=== PATIENT | female | born 1965 | race Caucasian/White ===

== ENCOUNTER → 2017-09-20 13:52 | Outpatient (CLI) | payer OTHER, SELFPAY ==
[2017-05-14 09:07] VITALS: BMI 30.7
--- NOTE | 2017-09-20 13:54 | ECHOD_ITS ---
Reason For Study: breast cancer Procedure This was a 2D Doppler, Color Flow transthoracic echocardiogram. Exam performed in department. Left Ventricle Normal LV size. Left ventricular systolic function is normal. The estimated ejection fraction is 60 %. Transmitral and pulmonary venous doppler flow suggestive of impaired relaxation of left ventricle. Transmitral diastolic flow velocities suggest mild (stage 1) diastolic dysfunction (reversed pattern). No regional wall motion abnormalities noted. Right Ventricle Normal RV size. Normal systolic function. Atria Normal left atrium. Normal right atrium. Mitral Valve Normal mitral valve. Tricuspid Valve Normal tricuspid valve. Aortic Valve The aortic valve is not well visualized. Pulmonic Valve Normal pulmonic valve. Great Vessels Normal aortic root. The pulmonary artery is normal size. Normal inferior vena cava. Pericardium/Pleural No pericardial effusion. MMode/2D Measurements & Calculations LVIDd: 4.7 cm IVSd: 0.91 cm Ao root diam: 2.9 cm LVIDs: 3.3 cm LVPWd: 0.83 cm LA dimension: 3.7 cm RVDd: 3.0 cm FS: 29.0 % LAV(MOD-bp): 39.3 ml LA A4 area: 15.0 cm2 RA A4 area: 11.1 cm2 LAV(MOD-bp) Indexed: 19.9 ml/m2 LAV(MOD-sp2): 40.9 ml LAV(MOD-sp4): 40.7 ml Time Measurements MV dec time: 0.18 sec Doppler Measurements & Calculations MV E max victor manuel: 75.3 cm/sec Lat Peak E' Victor Manuel: 5.9 cm/sec Med Peak E' Victor Manuel: 9.1 cm/sec MV A max victor manuel: 87.3 cm/sec E/E' lat: 12.9 E/E' med: 8.3 MV E/A: 0.86 Ao V2 max: 118.3 cm/sec LV V1 max: 93.6 cm/sec PA V2 max: 83.3 cm/sec Ao max P.6 mmHg LV V1 max P.5 mmHg TR max victor manuel: 219.8 cm/sec TR max P.5 mmHg Interpretation Summary Normal LV size. Left ventricular systolic function is normal. The estimated ejection fraction is 60 %. Transmitral diastolic flow velocities suggest mild (stage 1) diastolic dysfunction (reversed pattern). Ordering Physician: Jerman Tam Referring Physician: Gabrielle Nguyen Performed By: Stella Blackwood, ROBERT, RVT
== END ==
PROVIDERS: Family Provider Family Medicine; PCP Family Medicine; Visit Provider Internal Medicine Medical Oncology
DX: C50.912 Malignant neoplasm of unspecified site of left female breast (principal); Z79.899 Other long term (current) drug therapy
CPT/HCPCS: 93306

== ENCOUNTER → 2017-09-26 11:38 | Outpatient (CLI) | payer OTHER, SELFPAY ==
[2017-05-14 09:07] VITALS: BMI 30.7
== END ==
PROVIDERS: Family Provider Family Medicine; PCP Family Medicine; Visit Provider Obstetrics & Gynecology
DX: R30.0 Dysuria (principal); R35.0 Frequency of micturition
CPT/HCPCS: 87077; 87086; 87088; 87186

== ENCOUNTER → 2017-10-25 07:26 | Outpatient (CLI) | payer OTHER, SELFPAY ==
[2017-05-14 09:07] VITALS: BMI 30.7
--- NOTE | 2017-10-25 07:30 | BI_ITS ---
MAMMOGRAPHY - BILATERAL SCREENING 3-D DOMI SYNTHESIS REASON FOR EXAM: Female, 52 years old. Bilateral Screening 3-D tomosynthesis PERTINENT HISTORY: Personal history of left breast malignancy.. TECHNIQUE: 2-D mammograms and 3-D Domi synthesis of the breast (s) were performed. CAD was performed. COMPARISON: October 12, 2016. FINDINGS: The breast composition is heterogeneously dense that can obscure small breast masses. There is asymmetry with architectural distortion in the region of multiple surgical clips within the mid to deep upper lateral left breast. There is mild overlying skin thickening and retraction. The patient also appears status post left axillary reyna dissection. These findings all appear most consistent with postoperative and postsurgical fibrosis/scarring. There are few, scattered, typically benign-appearing calcifications. There has been no significant change since the prior study. BI/SCREENING MAMM (CAD), BILAT IMPRESSION: No mammographic signs of malignancy. Routine yearly mammograms recommended. ASSESSMENT CATEGORY: BIRADS Category 2: Benign. A letter regarding these results will be sent to the patient by the facility within 30 days. FOLLOW UP RECOMMENDATION: Yearly follow up mammogram recommended. (A) Approximately 10% of breast cancers are not detected by mammography. A normal mammogram should not delay biopsy of a clinically suspicious abnormality. Electronically Signed: Darvin Low MD at 10:17 EDT , Service support ,
== END ==
PROVIDERS: Family Provider Family Medicine; PCP Family Medicine; Visit Provider Obstetrics & Gynecology
DX: Z12.31 Encounter for screening mammogram for malignant neoplasm of breast (principal); D48.62 Neoplasm of uncertain behavior of left breast; Z85.3 Personal history of malignant neoplasm of breast
CPT/HCPCS: 77063; 77067

== ENCOUNTER → 2017-12-03 09:54 | Outpatient (CLI) | payer OTHER, SELFPAY ==
[2017-05-14 09:07] VITALS: BMI 30.7
--- NOTE | 2017-12-03 09:54 | DT_ITS ---
This patient was seen during an EMR downtime December 03, 2017 - December 10, 2017. This patient may have a combination of paper and electronic documentation or all paper documentation. All documentation is viewable within the e-chart portion of [employer] for each patient visit.
== END ==
PROVIDERS: Family Provider Family Medicine; PCP Family Medicine; Visit Provider Internal Medicine Medical Oncology
DX: C50.912 Malignant neoplasm of unspecified site of left female breast (principal); Z79.899 Other long term (current) drug therapy
CPT/HCPCS: 93306

== ENCOUNTER → 2018-03-28 13:00 | Outpatient (CLI) | payer OTHER, SELFPAY ==
[2017-05-14 09:07] VITALS: BMI 30.7
--- NOTE | 2018-03-28 13:05 | ECHODONC_ITS ---
Reason For Study: High risk meds Procedure This was a 2D Doppler, Color Flow transthoracic echocardiogram. Myocardial strain analysis was performed in this exam to aid in the assessment of cardiac function. Exam performed in department. Left Ventricle Normal LV size. Left ventricular systolic function is normal. The estimated ejection fraction is 60 %. Transmitral diastolic flow velocities suggest mild (stage 1) diastolic dysfunction (reversed pattern). The global longitudinal strain is normal. The global longitudinal strain = -18 % (normal). No regional wall motion abnormalities noted. Right Ventricle Normal RV size. Normal systolic function. Atria Normal left atrium. Normal right atrium. Mitral Valve Normal mitral valve. Tricuspid Valve Normal tricuspid valve. Aortic Valve Normal aortic valve. Trisinus/trileaflet aortic valve. Pulmonic Valve Normal pulmonic valve. Great Vessels Normal aortic root. The pulmonary artery is normal size. Normal inferior vena cava. Pericardium/Pleural No pericardial effusion. MMode/2D Measurements & Calculations LVIDd: 4.9 cm IVSd: 0.80 cm Ao root diam: 3.3 cm LVIDs: 3.3 cm LVPWd: 0.79 cm LA dimension: 3.3 cm RVDd: 3.0 cm FS: 33.5 % LAV(MOD-bp): 45.0 ml EDV(MOD-sp4): 104.7 ml EDV(MOD-sp2): 104.1 ml LAV(MOD-bp) Indexed: 22.8 ml/m2 ESV(MOD-sp4): 42.0 ml EF(MOD-sp2): 58.1 % LAV(MOD-sp2): 35.0 ml EF(MOD-sp4): 59.9 % LAV(MOD-sp4): 57.4 ml SV(MOD-sp4): 62.7 ml SV(MOD-sp2): 60.5 ml LA A4 area: 19.0 cm2 RA A4 area: 12.1 cm2 Doppler Measurements & Calculations MV E max victor manuel: 57.5 cm/sec Lat Peak E' Victor Manuel: 6.6 cm/sec Med Peak E' Victor Manuel: 6.4 cm/sec MV A max victor manuel: 93.3 cm/sec E/E' lat: 8.7 E/E' med: 9.0 MV E/A: 0.62 Ao V2 max: 133.2 cm/sec LV V1 max: 104.7 cm/sec PA V2 max: 88.7 cm/sec Ao max P.1 mmHg LV V1 max P.4 mmHg Interpretation Summary Normal LV size. Left ventricular systolic function is normal. Transmitral diastolic flow velocities suggest mild (stage 1) diastolic dysfunction (reversed pattern). The global longitudinal strain is normal. The global longitudinal strain = -18 % (normal). The estimated ejection fraction is 60 %. Ordering Physician: Yana Braxton Referring Physician: Gabrielle Nguyen Performed By: Yadira Garcia RDCS
== END ==
PROVIDERS: Family Provider Family Medicine; PCP Family Medicine; Referring Provider Nurse Practitioner Family; Visit Provider Nurse Practitioner Family
DX: Z79.899 Other long term (current) drug therapy (principal)
CPT/HCPCS: 0399T; 93306

== ENCOUNTER → 2018-04-18 07:45 | Outpatient (CLI) | payer OTHER, SELFPAY ==
[2017-05-14 09:07] VITALS: BMI 30.7
--- NOTE | 2018-04-18 07:47 | CT_ITS ---
STUDY: CT ABDOMEN AND PELVIS WITH CONTRAST REASON FOR EXAM: Female, 53 years old. Left lower quadrant pain x 2 weeks. History of breast cancer treated with lumpectomy, radiation, and chemotherapy. RADIATION DOSAGE (If Supplied By Facility): CTDIvol = ( 15.51 ) mGy, DLP = ( 1618.64 ) mGycm TECHNIQUE: Transaxial images were obtained from the dome of the diaphragm to the symphysis pubis with oral contrast. 100 ml of Isovue 300 contrast was administered. Sagittal and coronal images were reconstructed. # of Images: 409 Individualized dose optimization techniques were used for this CT. COMPARISON: None. FINDINGS: The visualized lung bases are unremarkable. The visualized portions of the heart are within normal limits. Normal liver. The patent portal vein diameter is 13 mm. There are multiple rim calcified gallstones, one of the largest measuring 2 x 1.4 x 1.75 cm. No mural thickening of the gallbladder nor pericholecystic fluid to indicate cholecystitis. The common bile duct diameter is 5 mm. Normal spleen. Normal pancreas. Normal bilateral adrenal glands. Normal right kidney. Normal left kidney. No hydronephrosis. Normal visualized stomach. Normal small intestine. Normal colon. The appendix is visualized on series 3 image 67, series 604 image 43 and appears normal. Normal abdominal aorta. Normal inferior vena cava. Normal retroperitoneum. Normal urinary bladder. Normal size anteverted uterus. Endometrial thickness is 10.5 mm. The patient has undergone prior bilateral tubal ligations. The ovaries are unremarkable. There is a small umbilical hernia containing fat. There are multilevel degenerative changes and mild S-shaped scoliosis of the visualized spine. CT/Abdomen/Pelvis WITH Contrast IMPRESSION: 1. Prior bilateral tubal ligation. Endometrial thickness is 10.5 mm. The uterus and ovaries are otherwise unremarkable. 2. The bowel is unremarkable without signs of obstruction. The appendix is normal. 3. Gallstones. No sign of cholecystitis or bile duct obstruction. 4. No hydronephrosis. 5. No demonstrated abdominal/pelvic mass or fluid collection. Electronically Signed: Guzman Reveles MD at 14:25 EDT , Service support ,
--- NOTE | 2018-04-18 07:47 | CT_ITS ---
STUDY: CT CHEST/THORAX WITH CONTRAST REASON FOR EXAM: Female, 53 years old. Left lower quadrant pain x 2 weeks. History of breast cancer treated with lumpectomy, radiation, and chemotherapy. RADIATION DOSAGE (If Supplied By Facility): CTDIvol = ( 15.51 ) mGy, DLP = ( 1618.64 ) mGycm TECHNIQUE: Transaxial imaging was performed following intravenous administration of 100 ml of Isovue 300 contrast material. Multiplanar coronal and sagittal images were reformatted. # of Images: 835 Individualized dose optimization techniques were used for this CT. COMPARISON: None. FINDINGS: Subsegmental stranding in the anterior periphery of the left upper lobe suggest chronic disease, such as post radiation fibrosis. Mildly lobulated 8 mm diameter pleural-based nodular density in the posterior medial right superior sulcus (series 6 image 15, series 601 image 170) is difficult to further characterize. There is no demonstrated pleural abnormality. Normal heart and pericardium. Normal mediastinum. Normal hilar regions. Normal enhanced pulmonary arteries. Normal aorta arch and descending thoracic aorta. There are multi-level degenerative changes of the thoracic spine. Postsurgical changes noted in the left breast. There are numerous surgical clips in the left axilla. There are rim calcified stones in the gallbladder. No mural thickening of the gallbladder nor pericholecystic fluid to suggest acute cholecystitis. CT/Chest WITH Contrast IMPRESSION: 1. Postsurgical changes in the left breast and left axilla. 2. Subsegmental stranding density of probable post radiation fibrotic change noted in the anterior periphery of the left upper lobe. 3. Indeterminate 8 mm pleural-based nodule in the posterior medial right superior sulcus. Follow-up in 3-6 months is advised to document stability. 4. Gallstones. No CT sign of acute cholecystitis. Electronically Signed: Guzman Reveles MD at 14:49 EDT , Service support ,
== END ==
PROVIDERS: Family Provider Family Medicine; PCP Family Medicine; Referring Provider Internal Medicine Medical Oncology; Visit Provider Internal Medicine Medical Oncology
DX: C50.812 Malignant neoplasm of overlapping sites of left female breast (principal); R10.32 Left lower quadrant pain
CPT/HCPCS: 71260; 74177; Q9967

== ENCOUNTER 2018-05-29 08:31 | Day surgery (SDC) | payer OTHER, SELFPAY ==
[2017-05-14 09:07] VITALS: BMI 30.7
[2018-05-29 08:52] VITALS: BP 126/93; PULSE 81; RESP 18; TEMP 36.9; O2SAT 99; BMI 30.7
[2018-05-29 10:06] VITALS: BP 126/93; BP 98/46; PULSE 73; RESP 14; TEMP 36.1; O2SAT 99
[2018-05-29 10:10] VITALS: BP 104/69; BP 126/93; PULSE 72; RESP 16; O2SAT 99
--- NOTE | 2018-05-29 10:11 | OP.ENDO_ITS ---
Patient Name: Lilian Ramos Procedure Date: 05/29/2018 9:38 AM Date of : 1965 Age: 53 Procedure: Colonoscopy Indications: Screening for colorectal malignant neoplasm Providers: Carissa Omalley MD Referring MD: Carissa Omalley MD Medicines: Monitored Anesthesia Care Patient Profile: This is a 53 year old female. Last Colonoscopy: none. The patient's first colonoscopy is today. Complications: No immediate complications. Procedure: Pre-Anesthesia Assessment: - Prior to the procedure, a History and Physical was performed, and patient medications and allergies were reviewed. The patient's tolerance of previous anesthesia was also reviewed. The risks and benefits of the procedure and the sedation options and risks were discussed with the patient. All questions were answered, and informed consent was obtained. Prior Anticoagulants: The patient has taken no previous anticoagulant or antiplatelet agents. ASA Grade Assessment: II - A patient with mild systemic disease. After reviewing the risks and benefits, the patient was deemed in satisfactory condition to undergo the procedure. After I obtained informed consent, the scope was passed under direct vision. Throughout the procedure, the patient's blood pressure, pulse, and oxygen saturations were monitored continuously. The pediatric colonoscope was introduced through the anus and advanced to the cecum, identified by the appendiceal orifice, ileocecal valve and palpation. The colonoscopy was performed without difficulty. The patient tolerated the procedure well. The quality of the bowel preparation was good. Scope In: 9:47:13 AM Scope Withdrawal Time 0 hours 7 minutes 13 seconds Scope Out: 10:02:14 AM Total Procedure Duration Time 0 hours 15 minutes 1 second Findings: Hemorrhoids were found on perianal exam. External and internal hemorrhoids were found during retroflexion and during perianal exam. The hemorrhoids were Grade I (internal hemorrhoids that do not prolapse). The entire examined colon appeared normal. Impression: - Hemorrhoids found on perianal exam. - External and internal hemorrhoids. - The entire examined colon is normal. - No specimens collected. Recommendation: - Discharge patient to home. - Continue present medications. - Repeat colonoscopy in 10 years for surveillance. Procedure Code(s): --- Professional --- G0121, Colorectal cancer screening; colonoscopy on individual not meeting criteria for high risk Diagnosis Code(s): --- Professional --- Z12.11, Encounter for screening for malignant neoplasm of colon K64.0, First degree hemorrhoids CPT copyright 2017 [employer]. All rights reserved. The codes documented in this report are preliminary and upon fund accountant review may be revised to meet current compliance requirements. MD Carissa Chandler MD 05/29/2018 10:10:47 AM This report has been signed electronically. Number of Addenda: 0 Note Initiated On: 05/29/2018 9:38 AM
[2018-05-29 10:15] VITALS: BP 111/65; BP 126/93; PULSE 69; RESP 16; O2SAT 99
[2018-05-29 10:24] VITALS: BP 111/65; BP 126/93; PULSE 65; RESP 16; TEMP 36.6; O2SAT 100
[2018-05-29 11:30] VITALS: BP 126/93
--- OUTSIDE RECORDS SUMMARY | 2018-07-24 13:50 | XMS RPT_ITS ---
:1965 Author Organization OHIP Support Name Relationship Address Phone REGINALDO QUACH Unavailable [address] + [place] [address] FELIPE MORENO Unavailable [address] + [place] [address] [employer] Unavailable [address] + [place] [address] REGINALDO QUACH Unavailable [address] + [place] [address] FELIPE MORENO Unavailable [address] + [place] [address] [employer] Unavailable [address] + [place] [address] REGINALDO QUACH Unavailable [address] + [place] [address] FELIPE MORENO Unavailable [address] + [place] [address] [employer] Unavailable [address] + [place] [address] REGINALDO QUACH Unavailable [address] + [place] [address] FELIPE MORENO Unavailable [address] + [place] [address] [employer] Unavailable [address] + [place] [address] REGINALDO QUACH Unavailable [address] + [place] [address] FELIPE MORENO Unavailable [address] + [place] [address] [employer] Unavailable [address] + [place] [address] PHILOMENA, REGINALDO Unavailable [address] + [place] [address] MORENO, FELIPE Unavailable [address] + [place] [address] [employer] Unavailable [address] + [place] [address] PHILOMENA, REGINALDO Unavailable [address] + [place] [address] MORENO, FELIPE Unavailable [address] + [place] [address] [employer] Unavailable [address] + [place] [address] PHILOMENA, REGINALDO Unavailable [address] + [place] [address] MORENO, FELIPE Unavailable [address] + [place] [address] [employer] Unavailable [address] + [place] [address] PHILOMENA, REGINALDO Unavailable [address] + [place] [address] MORENO, FELIPE Unavailable [address] + [place] [address] [employer] Unavailable [address] + [place] [address] PHILOMENA, REGINALDO Unavailable [address] + [place] [address] MORENO, FELIPE Unavailable [address] + [place] [address] [employer] Unavailable [address] + [place] [address] PHILOMENA, REGINALDO Unavailable [address] + [place] [address] MORENO, FELIPE Unavailable . + [place] [address] [employer] Unavailable [address] + [place] [address] PHILOMENA, REGINALDO Unavailable [address] + [place] [address] MORENO, FELIPE Unavailable . + [place] [address] [employer] Unavailable [address] + [place] [address] PHILOMENA, REGINALDO Unavailable [address] + [place] [address] MORENO, FELIPE Unavailable Unavailable + [employer] Unavailable [address] + [place] [address] PHILOMENA, REGINALDO Unavailable [address] + [place] [address] MORENO, FELIPE Unavailable Unavailable + [employer] Unavailable [address] + [place] [address] PHILOMENA, REGINALDO Unavailable [address] + [place] [address] MORENO, FELIPE Unavailable Unavailable + [employer] Unavailable [address] + [place] [address] PHILOMENA, REGINALDO Unavailable [address] + [place] [address] MORENO, FELIPE Unavailable Unavailable + [employer] Unavailable [address] + [place] [address] PHILOMENA, REGINALDO Unavailable [address] + [place] [address] MORENO, FELIPE Unavailable Unavailable + [employer] Unavailable [address] + [place] [address] PHILOMENA, REGINALDO Unavailable [address] + [place] [address] MORENO, FELIPE Unavailable Unavailable + [employer] Unavailable [address] + [place] [address] PHILOMENA, REGINALDO Unavailable [address] + [place] [address] MORENO, FELIPE Unavailable Unavailable + [place] [address] [employer] Unavailable [address] + [place] [address] PHILOMENA, REGINALDO Unavailable [address] + [place] [address] MORENO, FELIPE Unavailable Unavailable + [place] [address] [employer] Unavailable [address] + [place] [address] PHILOMENA, REGINALDO Unavailable [address] + [place] [address] MORENO, FELIPE Unavailable Unavailable + [place] [address] [employer] Unavailable [address] + [place] [address] PHILOMENA, REGINALDO Unavailable [address] + [place] [address] MORENO, FELIPE Unavailable Unavailable + [place] [address] [employer] Unavailable [address] + [place] [address] PHILOMENA, REGINALDO Unavailable [address] + [place] [address] MORENO, FELIPE Unavailable Unavailable + [place] [address] [employer] Unavailable [address] + [place] [address] PHILOMENA, REGINALDO Unavailable [address] + [place] [address] MORENO, FELIPE Unavailable Unavailable + [place] [address] [employer] Unavailable [address] + [place] [address] PHILOMENA, REGINALDO Unavailable [address] + [place] [address] MORENO, FELIPE Unavailable Unavailable + [place] [address] [employer] Unavailable [address] + [place] [address] PHILOMENA, REGINALDO Unavailable [address] + [place] [address] MORENO, FELIPE Unavailable Unavailable + [place] [address] [employer] Unavailable [address] + [place] [address] PHILOMENA, REGINALDO Unavailable [address] + [place] [address] MORENO, FELIPE Unavailable . + [place] [address] [employer] Unavailable [address] + [place] [address] PHILOMENA, REGINALDO Unavailable [address] + [place] [address] MORENO, FELIPE Unavailable . + [place] [address] [employer] Unavailable [address] + [place] [address] PHILOMENA, REGINALDO Unavailable [address] + [place] [address] MORENO, FELIPE Unavailable . + [place] [address] [employer] Unavailable [address] + [place] [address] PHILOMENA, REGINALDO Unavailable [address] + [place] [address] MORENO, FELIPE Unavailable . + [place] [address] [employer] Unavailable [address] + [place] [address] PHILOMENA, REGINALDO Unavailable [address] + [place] [address] [employer] Unavailable [address] + [place] [address] PHILOMENA, REGINALDO Unavailable [address] + [place] [address] MORENO, FELIPE Unavailable Unavailable + [employer] Unavailable [address] + [place] [address] PHILOMENA, REGINALDO Unavailable [address] + [place] [address] [employer] Unavailable [address] + [place] [address] PHILOMENA, REGINALDO Unavailable [address] + [place] [address] MORENO, FELIPE Unavailable Unavailable + [employer] Unavailable [address] + [place] [address] Care Team Providers Name Role Phone Carissa Omalley Attending Unavailable Jerman Tam Attending Unavailable Robotham, Carissa Referring Unavailable Malys, Gabrielle Primary Care Unavailable Herson Billings Attending Unavailable Irais, Yana Attending Unavailable Robotham, Carissa Attending Unavailable Malys, Gabrielle Referring Unavailable Malys, Gabrielle Primary Care Unavailable Prah, Jerman Attending Unavailable Robotham, Carissa Referring Unavailable Malys, Gabrielle Primary Care Unavailable PraJerman arboleda Consulting Unavailable Herson Billings Attending Unavailable Malys, Gabrielle Primary Care Unavailable Herson Billings Consulting Unavailable Prah, Jerman Attending Unavailable Robotham, Carissa Referring Unavailable Malys, Gabrielle Primary Care Unavailable Prah, Jerman Consulting Unavailable Prah, Jerman Attending Unavailable [place], Carissa Referring Unavailable Malys, Gabrielle Primary Care Unavailable Prankechi, Jerman Consulting Unavailable Prah, Jerman Attending Unavailable Prah, Jerman Referring Unavailable Malys, Gabrielle Primary Care Unavailable Prankechi, Jerman Attending Unavailable Robotham, Carissa Referring Unavailable Malys, Gabrielle Primary Care Unavailable Prankechi, Jerman Consulting Unavailable Giovanna Worley Attending Unavailable Malys, Gabrielle Primary Care Unavailable Prankechi, Jerman Attending Unavailable Robotham, Carissa Referring Unavailable Malys, Gabrielle Primary Care Unavailable Prankechi, Jerman Consulting Unavailable Juan Rios Attending Unavailable Prah, Jerman Referring Unavailable BenekoGiovanna anthony Attending Unavailable Benekos, Giovanna Referring Unavailable Malys, Gabrielle Primary Care Unavailable Herson Billings Attending Unavailable Robotham, Carissa Referring Unavailable Malys, Gabrielle Primary Care Unavailable Prankechi, Jerman Consulting Unavailable Prankechi, Jerman Attending Unavailable Robotham, Carissa Referring Unavailable Malys, Gabrielle Primary Care Unavailable Prankechi, Jerman Consulting Unavailable Prankechi, Jerman Attending Unavailable Robotham, Carissa Referring Unavailable Malys, Gabrielle Primary Care Unavailable PraJerman arboleda Consulting Unavailable Herson Billings Attending Unavailable Manuelito, Herson Referring Unavailable Herson Billings Attending Unavailable Manuelito, Herson Referring Unavailable Prankechi, Jerman Attending Unavailable Prah, Jerman Referring Unavailable Malys, Gabrielle Primary Care Unavailable Prankechi, Jerman Attending Unavailable Robotham, Carissa Referring Unavailable Malys, Gabrielle Primary Care Unavailable Prankechi, Jerman Consulting Unavailable Prankechi, Jerman Attending Unavailable Robotham, Carissa Referring Unavailable Malys, Gabrielle Primary Care Unavailable Prankechi, Jerman Consulting Unavailable Raghav Price Attending Unavailable Robotham, Carissa Attending Unavailable Prah, Jerman Referring Unavailable Malys, Gabrielle Primary Care Unavailable Irais, Yana Attending Unavailable Robotham, Carissa Referring Unavailable Malys, Gabrielle Primary Care Unavailable Prah, Jerman Consulting Unavailable Irais, Yana Referring Unavailable Malys, Gabrielle Primary Care Unavailable Prah, Jerman Consulting Unavailable Irais, Yana Attending Unavailable Prah, Jerman Attending Unavailable Robotham, Carissa Referring Unavailable Malys, Gabrielle Primary Care Unavailable Prah, Jerman Consulting Unavailable Prah, Jerman Attending Unavailable Prah, Jerman Referring Unavailable Malys, Gabrielle Primary Care Unavailable Prah, Jerman Attending Unavailable Robotham, Carissa Referring Unavailable Malys, Gabrielle Primary Care Unavailable Prah, Jerman Consulting Unavailable Gabriel, Juan Attending Unavailable Irais, Yana Referring Unavailable Robotham, Carissa Attending Unavailable Prah, Jerman Referring Unavailable Robotham, Carissa Attending Unavailable Robotham, Carissa Referring Unavailable Malys, Gabrielle Primary Care Unavailable Herson Billings Attending Unavailable Robotham, Carissa Referring Unavailable Malys, Gabrielle Primary Care Unavailable Prah, Jerman Consulting Unavailable PROBLEMS PROBLEMS DATE TYPE CONDITION / CODE ATTENDING STATUS SOURCE 06/03/2018 Unknown C50.912 - Herson Billings Active [place] [facility] unspecified site Repository of left female breast / C50.912(ICD-10) 06/17/2018 Unknown Z12.11 - Robotham, Active [place] Encounter for [facility] screening for Hospital malignant Repository neoplasm of colon / Z12.11(ICD-10) 06/17/2018 Unknown K64.0 - First Robotham, Active [place] degree [facility] hemorrhoids / Hospital K64.0(ICD-10) Repository 05/02/2018 Unknown Z79.899 - Other Gabriel, [place] Active [place] [facility] therapy / Repository Z79.899(ICD-10) 02/13/2018 Unknown Z51.81 - Irais, Yana Active [place] [facility] for [facility] therapeutic drug Hospital level monitoring Repository / Z51.81(ICD-10) 12/18/2017 Unknown C50.412 - Jerman Tam Active [place] [facility] neoplasm of [facility] upper-outer Repository quadrant of left female breast / C50.412(ICD-10) 07/30/2017 Unknown N63 - Unspecified Jerman Tam Active [place] lump in breast / Community N63(ICD-10) Hospital Repository PROCEDURES PROCEDURES No Procedure Records FoundRESULTS RESULTS ONCOLOGY FOLLOW-UP Observed: 05/30/2018 Status: F Source: [facility] 9:40 AM REPOSITORY [facility] Medical Records Department [address] [place] [address] Oncology Follow-Up Visit 05/30/18927 MR#: [id number] Acct: [id number] Name: LILIAN QUACH Rep #: [id number] : 1965 53 From: Herson Billings DO PCP: Gabrielle Nguyen DO Status: REG RCR Y Location: [facility] Date of Service: 05/30/18 Last Clinic Visit: 10/30/17 Diagnosis: Lilian Quach is a 52-year-old postmenopausal female diagnosed with pathologic stage IIA (pT1c N1a (sn) M0) grade 2 invasive ductal carcinoma (ER > 95%, AK 6%, HER-2 2+ on IHC and amplified on FISH) of the left breast status post lumpectomy and sentinel lymph node biopsy completed on 12/20/2016, and adjuvant chemotherapy consisting of TCH 6 cycles completed from 01/15/2017 - 05/01/2017. From 05/29/17 - 06/28/17 she received adjuvant radiation therapy consisting of 4256 cGy in 16 fractions directed to the left breast and low axilla followed by a boost consisting of 1000 cGy in 5 fractions directed to the lumpectomy cavity. History of Present Illness: 10/12/2016: Bilateral screening mammography was completed and showed evidence of a 1.3 x 1.4 cm irregular nodule in the deep upper lateral portion of the left breast. Recommended ultrasound for further evaluation, BI-RADS 0. 10/18/2016: Left breast ultrasound was performed and confirmed the existence of a 1.4 x 0.9 cm lesion in the outer inferior quadrant of the left breast at the 3 o'clock position about 7 cm from the nipple. BI-RADS 4. 11/15/2016: Ultrasound-guided core biopsy of the left breast mass was performed. Pathology demonstrated grade 2 invasive ductal carcinoma (ER > 95%, AK 6%, HER-2 2+ on IHC and amplified on FISH) which measured 1 cm in greatest diameter. 12/20/2016: The patient underwent left breast lumpectomy and sentinel lymph node biopsy and pathology demonstrated a single focus of grade 2 invasive ductal carcinoma measuring 1.5 cm, margins negative (initial margin is less than 0.1 cm posteriorly but upon re-resection this is greater than 1 cm), no lymphovascular space invasion, 1 of one sentinel lymph node biopsy is positive with 2 foci of metastatic disease the largest being 0.5 cm and no extranodal extension is identified, pathologic stage pT1c N1a. From 01/15/2017 to 05/01/2017: Completed adjuvant chemotherapy consisting of Taxotere and carboplatin 6 cycles given concurrently with Herceptin. From 05/29/17 06/28/17: received adjuvant radiation therapy consisting of 4256 cGy in 16 fractions directed to the left breast and low axilla followed by a boost consisting of 1000 cGy in 5 fractions directed to the lumpectomy cavity. 07/03/17: initiated Tamoxifen 07/23/17: Received Herceptin, final Herceptin planned for December 2017 10/25/2017: Bilateral screening mammogram with 3D tomosynthesis was performed. The breast composition is heterogeneously dense which could obscure small breast masses, there is asymmetry with architectural distortion in the region of multiple surgical clips within the mid to deep upper lateral left breast with mild overlying skin thickening and retraction, the patient also appears to be status post left axillary reyna dissection and these findings are consistent with postoperative and postsurgical fibrosis/scarring. There are few scattered typical benign-appearing calcifications and no other significant changes since the prior study. BI-RADS Category 2. 12/18/2017: Patient completed maintenance Herceptin. 04/18/2018: Patient underwent CT chest abdomen and pelvis which demonstrated evidence for postsurgical changes in the left breast and left axilla. Subsegmental stranding density of probable post radiation fibrotic changes noted in the anterior periphery of the left lung. An indeterminate 8 mm pleural-based nodule is noted in the posterior medial right superior sulcus. Endometrial thickness is noted to be 10.5 mm otherwise the uterus and ovaries are unremarkable. Bowel is unremarkable without signs of obstruction. Multiple calcified gallstones are noted with the largest measuring 2 cm, no indication of cholecystitis. No other abnormality is noted. Recommend 6-month follow-up for small nodule seen on CT chest. 05/08/2018: Patient was evaluated by surgery for follow-up of left lower quadrant pain and finding of gallstones on CT scan. Left lower quadrant pain had resolved and thought to be resulting from constipation. Patient had not ever had colonoscopy for screening prior to this time so this was scheduled. 05/29/18: Colonoscopy was performed which demonstrated no evidence for abnormality other than hemorrhoids, repeat exam in 10 years. Radiation Treatment History: 1) From 05/29/17 06/28/17: received adjuvant radiation therapy consisting of 4256 cGy in 16 fractions directed to the left breast and low axilla followed by a boost consisting of 1000 cGy in 5 fractions directed to the lumpectomy cavity. No pacemaker, no history of collagen vascular disease. Interval History: Lilian Quach returns for routine follow-up 11 months after completing radiation therapy. She completed Herceptin in November and is continuing to take tamoxifen without difficulty. She denies having skin erythema, breast pain, nipple discharge or inversion, alterations in breast size or shape, or breast/arm edema. She denies having chest wall pain, cough, shortness of breath, hemoptysis. She reports a normal arm range of motion without shoulder pain and denies having swelling in her arm or changes in motor or sensory function. The previously noted abdominal discomfort has completely resolved. Her energy is normal and she is working full-time without problems. She denies headaches, vision changes, bone pain, unexpected weight loss, or other problems or concerns at this time. I have reviewed the medical, surgical, and other pertinent history in details and have updated medication and allergy information in the electronic medical record. Health Maintenance Do you regularly see your No primary care physician? Have you ever had a No colonoscopy? Review of Systems: A 12-point review of systems was completed and was negative except for what is noted in the HPI/Interval History and by the nurse. Height/Weight/BMI: Height: 5 ft 7 in Weight: 193.2 lbs (end of treatment weight 192.4 lbs) Vital Signs Temperature 98.9 F 05/30/18 09:05 Temperature Source Oral 05/30/18 09:05 Pulse Rate 76 05/30/18 09:05 Respiratory Rate 16 05/30/18 09:05 Respiratory Pattern Normal 11/06/17 09:56 Physical Exam: ECO KARNOFSKY SCORE: 100% CONSTITUTIONAL: Well-developed, well-nourished, and in no apparent distress. NECK: Supple,with no thyromegaly, and non-tender. Trachea midline. No cervical or supraclavicular adenopathy noted. CARDIAC: Regular rate and rhythm. Normal S1, S2. No murmurs, rubs, or gallops. PULMONARY/CHEST: Lungs are clear to auscultation and percussion bilaterally. No wheezes, rhonchi, or crackles noted. No increased work of breathing. ABDOMINAL: Abdomen soft, non-tender, non-distended. No hepatomegaly. Normoactive bowel sounds in all four quadrants. No guarding, rebound. BREAST: Bilateral breasts are examined in the seated and supine positions. There is mild asymmetry with some decreased size of the left breast as compared to the right. There is a well-healed lumpectomy scar apparent in the outer portion of the left breast around 3 o'clock position with a very small amount of fibrous tissue beneath, non-tender to palpation. There is no evidence for hyperpigmentation, desquamation, rash, or erythema. There are no palpable masses in either breast or axilla and there is normal arm range of motion. BACK: Straight and aligned. No CVA tenderness. Axial skeleton non-tender to percussion. EXTREMITIES: Full range of motion in all four extremities, with normal strength equally and symmetrically. No evidence of edema. No clubbing. Imaging: as per HPI Laboratory Data: 04/10/2018: CBC and CMP were unremarkable. Assessment: Lilian Quach is a 52-year-old postmenopausal female diagnosed with pathologic stage IIA (pT1c N1a (sn) M0) grade 2 invasive ductal carcinoma (ER > 95%, AK 6%, HER-2 2+ on IHC and amplified on FISH) of the left breast status post lumpectomy and sentinel lymph node biopsy completed on 12/20/2016, and adjuvant chemotherapy consisting of TCH 6 cycles completed from 01/15/2017 - 05/01/2017. From 05/29/17 - 06/28/17 she received adjuvant radiation therapy consisting of 4256 cGy in 16 fractions directed to the left breast and low axilla followed by a boost consisting of 1000 cGy in 5 fractions directed to the lumpectomy cavity. She completed Herceptin (November 2017) and is taking tamoxifen (Initiated July 2017) and planning to take for 10 years. Plan: iLlian Quach returns for a 5 month follow-up after completing adjuvant radiation therapy to the left breast and low axilla. Clinically she is doing very well and displays no evidence of toxicity from radiation therapy and has an excellent cosmetic outcome. She has no evidence of disease on exam. Annual mammography completed in September 2017 showed evidence for benign findings, BI-RADS 2. I recommend that she return for a mammogram in September 2018. She will continue Tamoxifen under the care of Dr. Tam. I recommended that she have breast exam completed every 4-6 months during the second year and that we alternate these exams between providers to reduce overlapping visits. I will have her return to clinic after her mammogram in September and she was instructed to call with any further questions or concerns in the interim. Health Maintenance: Recommended health well-balanced plant-based diet as well as persistent cardiovascular exercise program to maintain healthy weight and maximally reduce risk of disease recurrence. Recommended colonoscopy for colorectal cancer screening. This was completed 05/29/2018 and no abnormalities were noted, 10-year follow-up. Recommended routine gynecologic exam with Pap smear per screening recommendations. She is already undergoing periodic screening per her measurer machine. Recommended follow-up with PCP for any other medical problems. Herson Billings DO, MS [place], Department of Radiation Oncology [facility] 05/30/18 [id number] <Electronically signed by Herson Billings DO> Date Herson Billings DO CC: Jerman Tam MD; Carissa Omalley MD; Yana Braxton NP Signed OPERATIVE REPORT - Observed: 05/29/2018 Status: F Source: [facility] 10:11 AM REPOSITORY [facility] Medical Records Department [address] [place] [address] Operative Report - Endoscopy MR#: [id number] Acct: [id number] Name: LILIAN QUACH Rep #: [id number] : 1965 53 From: Carissa Omalley MD PCP: Gabrielle Nguyen DO [place] [facility] [place] Name: Lilian Quach Procedure Date: 05/29/2018 9:38 AM Date of : 1965 Age: 53 Procedure: Colonoscopy Indications: Screening for colorectal malignant neoplasm Providers: Carissa Omalley MD Referring MD: Carissa Omalley MD Medicines: Monitored Anesthesia Care Patient Profile: This is a 53 year old female. Last Colonoscopy: none. The patient's first colonoscopy is today. Complications: No immediate complications. Procedure: Pre-Anesthesia Assessment: - Prior to the procedure, a History and Physical was performed, and patient medications and allergies were reviewed. The patient's tolerance of previous anesthesia was also reviewed. The risks and benefits of the procedure and the sedation options and risks were discussed with the patient. All questions were answered, and informed consent was obtained. Prior Anticoagulants: The patient has taken no previous anticoagulant or antiplatelet agents. ASA Grade Assessment: II - A patient with mild systemic disease. After reviewing the risks and benefits, the patient was deemed in satisfactory condition to undergo the procedure. After I obtained informed consent, the scope was passed under direct vision. Throughout the procedure, the patient's blood pressure, pulse, and oxygen saturations were monitored continuously. The pediatric colonoscope was introduced through the anus and advanced to the cecum, identified by the appendiceal orifice, ileocecal valve and palpation. The colonoscopy was performed without difficulty. The patient tolerated the procedure well. The quality of the bowel preparation was good. Scope In: 9:47:13 AM Scope Withdrawal Time 0 hours 7 minutes 13 seconds Scope Out: 10:02:14 AM Total Procedure Duration Time 0 hours 15 minutes 1 second Findings: Hemorrhoids were found on perianal exam. External and internal hemorrhoids were found during retroflexion and during perianal exam. The hemorrhoids were Grade I (internal hemorrhoids that do not prolapse). The entire examined colon appeared normal. Impression: - Hemorrhoids found on perianal exam. - External and internal hemorrhoids. - The entire examined colon is normal. - No specimens collected. Recommendation: - Discharge patient to home. - Continue present medications. - Repeat colonoscopy in 10 years for surveillance. Procedure Code(s): --- Professional --- G0121, Colorectal cancer screening; colonoscopy on individual not meeting criteria for high risk Diagnosis Code(s): --- Professional --- Z12.11, Encounter for screening for malignant neoplasm of colon K64.0, First degree hemorrhoids CPT copyright 2017 [employer]. All rights reserved. The codes documented in this report are preliminary and upon slip cover estimator review may be revised to meet current compliance requirements. MD Carissa Chandler MD 05/29/2018 10:10:47 AM This report has been signed electronically. Number of Addenda: 0 Note Initiated On: 05/29/2018 9:38 AM 05/29/18 1010 Date Carissa mOalley MD Cosigner Signature: Date (if indicated) CC: Gabrielle Nguyen DO; Carissa Omalley MD Date Dictated: 05/29/1838 Date Transcribed: Agency Development Manager: TR Signed SURGERY VISIT REPORT Observed: 05/10/2018 Status: F Source: [facility] 11:43 AM REPOSITORY [facility] [address] [place] [address] [address] [place] [address] OFFICE VISIT Date of Service: 05/08/18 MR#: [id number] Acct: [id number] Name: LILIAN QUACH Rep #: [id number] : 1965 Provider: Carissa Omalley MD Age/Sex: 53/F Location: [facility] Status: Signed Intake Vital Signs05/08/18 Height 5 ft 6 in 05/08/18 Weight: 197 lb 05/08/18 Body Mass Index (BMI) 31.8 05/08/18 Blood Pressure 149/98 H 05/08/18 Blood Pressure Position Sitting 05/08/18 Respiratory Rate 18 Intake Visit Reasons: Abdominal Pain/US 04/18 WC Gallstone Ileus Chief Complaint: F/u for CT results. Plastic Fixture Builder Required: No Is patient in pain?: No Allergies No Known Allergies Allergy (Verified 05/08/18 13:44) Medications Tamoxifen Citrate 20 mg PO DAILY #90 tab 09/24/17 [Rx Confirmed 05/08/18] Famciclovir [Famvir] 500 mg PO TID 1 Days #3 tab 12/18/17 [Rx Confirmed 04/23/18] PFSH Medical History Breast cancer (Acute) PORT REMOVAL (Acute) Surgical History H/O lumpectomy (Acute) H/O mastectomy (Acute) H/O tubal ligation (Acute) Family History Father COPD (chronic obstructive pulmonary disease) Prostate cancer Mother Hyperlipidemia Hypertension Breast cancer Social History Smoking Status: Never smoker alcohol intake: current alcohol intake frequency: a few times a month substance use type: does not use HPI HPI HPI: LILIAN QUACH, is a 53 F who presents to the office today for CT abdomen pelvis showing gallstones. Patient previously did have 4 days of left lower quadrant pain which she had an appointment with oncology and a CT abdomen pelvis as well as chest was ordered. CT chest did show a small 8 mm right posterior lung nodule which recommends a repeat CT in the future. CT abdomen pelvis only showed gallstones but no acute issues. However upon reviewing the CT abdomen Juarez she did appear constipated. Patient states that the left lower quadrant pain has not come back, but it did occur when she was traveling and when she was noted she was constipated. Patient states she has bowel movements every 2-3 days. Patient has never had a screening colonoscopy. ROS General General: Yes breast cancer; no weight change, appetite, fatigue, colon cancer or weakness HEENT HEENT: No difficulty swallowing, eye injury, eye surgery, swollen glands or hoarseness Endo Endocrine: No thyroid disease, diabetes mellitus, thyroid cancer, Hair loss, heat intolerance or cold intolerance Skin Skin: No rash or changing moles Breast Breast: No left breast lump, right breast lump, nipple discharge, breast pain, abnormal mammogram, abnormal US or breast enlargement Musc Musculoskeletal: No back problems, arthritis, rheumatoid arthritis, gout or joint pain Cardio Cardiovascular: No murmur, pacemaker, heart disease, atrial fibrillation, high blood pressure, heart attack, heart stent, palpitations, shortness of breat with exertion or chest pain Psych Psychiatric: No depression, anxiety or hearing voices Resp Respiratory: No shortness of breath, No sleep apnea, No cough, No COPD, No asthma, No emphysema, No wheezing Gastro Gastrointestinal: No abdominal pain, No nausea or vomiting, No diarrhea, No constipation, No blood in stool, No acid reflux, No hemorrhoids, No ulcers, Yes gallbladder problem, No black,tarry stools Freddy Hematologic: No blood thinners, No blood disorders, No bleeding, No anemia, No blood clots Neuro Neurologic: No system reviewed and no additional complaints, except as docu, No as per HPI, No abnormal walking, No abnormal hearing, No abnormal movements, No abnormal speech, No behavioral changes, No burning sensations, No confusion, No seizure-like activity, No unsteadiness, No dizziness, No localized weakness, No frequent falls, No headache(s), No lack of coordination, No loss of vision, No memory loss, No numbness, No other visual disturbances, No radiating pain, No restless legs, No sensory deficit, No fainting, No tingling, No tremor(s), No weakness, No other Exam Const General: cooperative, comfortable, no acute distress Chest Breast Palpation: No nipple discharge Resp Effort AND Inspection: normal respiratory effort Cardio Heart Sounds: no murmurs GI Inspection: non-distended Palpation: soft, no guarding, no hernias, nontender Assessment AND Plan Problems 1. LLQ pain R10.32 2. Constipation K59.00 3. Cholelithiasis K80.20 4. Encounter for screening for malignant neoplasm of colon Z12.11 Plan Patient previous left lower quadrant pain last for about 4 days but did resolve on its own. Patient did admit to being constipated during that time. Patient CT abdomen pelvis not show anything acute only gallstones and it also appeared that she was constipated per my read which I also reviewed with the patient. Discussed with patient I would recommend increasing her fiber in her diet as well as increasing the amount of water she drinks daily. She states she only has a bowel movement every 2-3 days. I have discussed the above with the patient. I have offered the patient colonoscopy for evaluation. I have explained the risks/benefits of the procedure and described the procedure. I have discussed the risks with the patient, including but not limited to: infection, bleeding, perforation of the GI tract requiring emergency surgery, inability to complete the procedure, injury to any internal organs, complications of anesthesia, etc. - the patient understands and agrees to proceed. I have answered all the patient's questions to the patient's satisfaction and the patient has no further questions. The patient has been given instructions for the colon cleansing preparation. 2 days of clears, magnesium citrate the first day then MiraLAX Dulcolax split second. Carissa Omalley M.D. Pager: [phone] [facility] [address] [place] [address], [facility], [address] [place] [address] Office: [phone] Orders Orders: Plan Detail Follow Up Will schedule colonoscopy Coding Level of Care Code Off vis,est,level 3 Diagnoses LLQ pain R10.32 Constipation K59.00 Cholelithiasis K80.20 Encounter for screening for malignant neoplasm of colon Z12.11 05/10/18 1143 <Electronically signed by Carissa Omalley MD> Date Carissa Omalley MD Cosigner Signature: Date (if applicable) CC: Jerman Tam MD; Gabrielle Nguyen DO ONCOLOGY VISIT REPORT Observed: 04/23/2018 Status: F Source: [facility] 4:08 PM REPOSITORY [facility] [address] [place] [address] OFFICE VISIT Date of Service: 04/23/18 1556 MR#: [id number] Acct: [id number] Name: LILIAN QUACH Rep #: [id number] : 1965 From: Jerman Tam MD Age/Sex: 53/F Location: [facility] Status: Signed Subjective - Date of Service Date of Service:: 04/23/18 - Chief Complaint F/u for CT results. - History of Present Illness Mrs. Lilian Quach is a very pleasant 53y.o.woman was found to have an abnormal mammogram in 08/2016. US of Left Breast on 10/18/2016 showed 1.4cm lesion in the 3 o'clock position. 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 She underwent left lumpectomy and sentinel node biopsy on 12/20/2016. Tumor size 15mm, [place] node 1/1 positive with macrometastasis. Pathology stage pT1c pN1-stage IIA. Echo 01/08/17 showed EF 60%. Initiated TC AND weekly Herceptin on 01/15/17. After the Neulasta on body injector deployed with cycle 2, developed epigastric pain which extend into retrosternal area and back. Echocardiogram done on 03/15/2017 showed EF 55%. She finished TC with weekly Herceptin on 05/14/2017. Began Herceptin 6mg/kg every 3 weeks on 05/21/17, intent to complete 1 year of therapy. Completed proposed course of XRT (4256 cGy in 16 fractions, 1000 cGy-boost in 5 fractions) to left breast and low axilla 05/29/17-06/28/17 under the care of Dr. Billings. Echocardiogram on 06/04/2017 showed EF 60%. Started adjuvant Tamoxifen on 07/03/2017. Echocardiogram on 09/20/2017 showed EF 60%. Repeat Echocardiogram on 12/03/2017 was 60%. Finished maintenance adjuvant Herceptin C17 on 12/18/2017. Remains on Tamoxifen. She had L lower quadrant abdominal pain, CT were requested, comes for follow up. - Past Medical/Social History Past Medical History Past Medical History: Unknown Cancer: Breast cancer Past Surgical History Surgical: Mastectomy,Tubal ligation Other Surgical History: PARTIAL MASTECTOMY LEFT Family History Paternal Past Medical History: COPD Paternal History of Cancer Prostate cancer Maternal Past Medical History: Hyperlipidemia,Hypertension Maternal History of Cancer: Breast cancer Social History Social History: No changes Smoking Status Never smoker Review of Systems Constitutional:: Denies: Fever, Sweats, Weight loss, Appetite change, Chills Cardiovascular:: Denies: Chest pain, Palpitations, Dyspnea on exertion, Orthopnea, PND, Shortness of breath Respiratory: Denies: Cough, Hemoptysis, Shortness of Breath, Wheezing Gastrointestinal:: Denies: Abdominal pain, Nausea, Vomiting, Diarrhea, Constipation, Hematochezia Genitourinary: Denies: Dysuria, Hematuria, 15, Flank pain Musculoskeletal:: Denies: Back pain, Myalgia, Arthralgia Skin: Denies: Rash, Skin Changes, Wounds Neurological:: Denies: Headache, Dizziness, Visual changes, Tinnitus, Hearing loss Psychiatric: Denies: Anxiety, Depression, Homicidal Ideations, Suicidal Ideations Vital Signs Height 5 ft 7 in Weight: 89.811 kg Weight in Pounds 198.0 lbs BMI 30.7 Pulse Ox 99 - Physical Exam General: Alert, Oriented x3, No apparent distress Diagnostic Data: 04/18/[address]/Abdomen/Pelvis WITH Contrast IMPRESSION: 1. Prior bilateral tubal ligation. Endometrial thickness is 10.5 mm. The uterus and ovaries are otherwise unremarkable. 2. The bowel is unremarkable without signs of obstruction. The appendix is normal. 3. Gallstones. No sign of cholecystitis or bile duct obstruction. 4. No hydronephrosis. 5. No demonstrated abdominal/pelvic mass or fluid collection. Electronically Signed: Guzman Reveles MD at 14:[address]/Chest WITH Contrast IMPRESSION: 1. Postsurgical changes in the left breast and left axilla. 2. Subsegmental stranding density of probable post radiation fibrotic change noted in the anterior periphery of the left upper lobe. 3. Indeterminate 8 mm pleural-based nodule in the posterior medial right superior sulcus. Follow-up in 3-6 months is advised to document stability. 4. Gallstones. No CT sign of acute cholecystitis. Electronically Signed: Guzman Reveles MD at 14:49 EDT Assessment and Plan Left Breast Cancer stage IIA, ER/AK/Her2 positive, finished Carboplatin and Taxotere q 3 wks and Herceptin weekly x 18 wks. Received maintenance Herceptin 6mg/kg q 3 wks from 05/21/2017 to 12/18/2017. On Tamoxifen since 07/03/2017. Echocardiogram on 03/28/2018 shows EF 60%. Abdominal pain has resolved. Right upper lobe nodule. Asymptomatic gallstones. Plan is to continue Tamoxifen 20mg daily for 10yrs[address] To repeat [address] chest in 6 months. RTC [address] chest/CMP/CBC. Medications: Prescriptions This Visit Medication Instructions Recorded Aspirin [Aspirin EC] 325 mg PO DAILY 08/13/17 Tamoxifen Citrate 20 mg PO DAILY #90 tab 09/24/17 Primary Care Provider: Gabrielle Nguyen DO Referring Provider: Carissa Omalley - Problem List (1) Breast cancer, left breast Status: Resolved Qualifiers: Breast location: upper outer quadrant of breast Estrogen receptor status: positive Patient sex: female Qualified Code(s): C50.412 - Malignant neoplasm of upper-outer quadrant of left female breast; Z17.0 - Estrogen receptor positive status [ER+] (2) History of left breast cancer Status: Chronic (3) Lung nodule Status: Chronic Code Visit Office Visits / Consults: 10708 OV L3 Est 04/23/18 1608 <Electronically signed by Jerman Tam MD> Date Jerman Tam MD Cosigner Signature: Date (if applicable) CC: ABDOMEN/PELVIS WITH Observed: 04/18/2018 Status: F Source: [facility] CONTRAST 7:47 AM REPOSITORY [facility] [address] [place] [address] Abdomen/Pelvis WITH Contrast MR#: [id number] Acct: [id number] Name: LILIAN QUACH Rep #: [id number] : 1965 F 53 From: Jorge Reveles MD PCP: Gabrielle Nguyen DO Status: REG CLI Study: Abdomen/Pelvis WITH Contrast Date of Exam: 04/18/18 Exam# [id number] Ordering Dr: Jerman Tam MD STUDY: CT ABDOMEN AND PELVIS WITH CONTRAST REASON FOR EXAM: Female, 53 years old. Left lower quadrant pain x 2 weeks. History of breast cancer treated with lumpectomy, radiation, and chemotherapy. RADIATION DOSAGE (If Supplied By Facility): CTDIvol = ( 15.51 ) mGy, DLP = ( 1618.64 ) mGycm TECHNIQUE: Transaxial images were obtained from the dome of the diaphragm to the symphysis pubis with oral contrast. 100 ml of Isovue 300 contrast was administered. Sagittal and coronal images were reconstructed. # of Images: 409 Individualized dose optimization techniques were used for this CT. COMPARISON: None. FINDINGS: The visualized lung bases are unremarkable. The visualized portions of the heart are within normal limits. Normal liver. The patent portal vein diameter is 13 mm. There are multiple rim calcified gallstones, one of the largest measuring 2 x 1.4 x 1.75 cm. No mural thickening of the gallbladder nor pericholecystic fluid to indicate cholecystitis. The common bile duct diameter is 5 mm. Normal spleen. Normal pancreas. Normal bilateral adrenal glands. Normal right kidney. Normal left kidney. No hydronephrosis. Normal visualized stomach. Normal small intestine. Normal colon. The appendix is visualized on series 3 image 67, series 604 image 43 and appears normal. Normal abdominal aorta. Normal inferior vena cava. Normal retroperitoneum. Normal urinary bladder. Normal size anteverted uterus. Endometrial thickness is 10.5 mm. The patient has undergone prior bilateral tubal ligations. The ovaries are unremarkable. There is a small umbilical hernia containing fat. There are multilevel degenerative changes and mild S-shaped scoliosis of the visualized spine. CT/Abdomen/Pelvis WITH Contrast IMPRESSION: 1. Prior bilateral tubal ligation. Endometrial thickness is 10.5 mm. The uterus and ovaries are otherwise unremarkable. 2. The bowel is unremarkable without signs of obstruction. The appendix is normal. 3. Gallstones. No sign of cholecystitis or bile duct obstruction. 4. No hydronephrosis. 5. No demonstrated abdominal/pelvic mass or fluid collection. Electronically Signed: Guzman Reveles MD at 14:25 EDT , Service support , CC: Jerman Tam MD; Gabrielle Nguyen DO Agency Development Manager: Signed CHEST WITH CONTRAST Observed: 04/18/2018 Status: F Source: [facility] 7:47 AM REPOSITORY [facility] Imaging Services [address] [place] [address] Chest WITH Contrast MR#: [id number] Acct: [id number] Name: LILIAN QUACH Rep #: [id number] : 1965 F 53 From: Jorge Reveles MD PCP: Gabrielle Nguyen DO Status: REG CLI Study: Chest WITH Contrast Date of Exam: 04/18/18 Exam# [id number] Ordering Dr: Jerman Tam MD STUDY: CT CHEST/THORAX WITH CONTRAST REASON FOR EXAM: Female, 53 years old. Left lower quadrant pain x 2 weeks. History of breast cancer treated with lumpectomy, radiation, and chemotherapy. RADIATION DOSAGE (If Supplied By Facility): CTDIvol = ( 15.51 ) mGy, DLP = ( 1618.64 ) mGycm TECHNIQUE: Transaxial imaging was performed following intravenous administration of 100 ml of Isovue 300 contrast material. Multiplanar coronal and sagittal images were reformatted. # of Images: 835 Individualized dose optimization techniques were used for this CT. COMPARISON: None. FINDINGS: Subsegmental stranding in the anterior periphery of the left upper lobe suggest chronic disease, such as post radiation fibrosis. Mildly lobulated 8 mm diameter pleural-based nodular density in the posterior medial right superior sulcus (series 6 image 15, series 601 image 170) is difficult to further characterize. There is no demonstrated pleural abnormality. Normal heart and pericardium. Normal mediastinum. Normal hilar regions. Normal enhanced pulmonary arteries. Normal aorta arch and descending thoracic aorta. There are multi-level degenerative changes of the thoracic spine. Postsurgical changes noted in the left breast. There are numerous surgical clips in the left axilla. There are rim calcified stones in the gallbladder. No mural thickening of the gallbladder nor pericholecystic fluid to suggest acute cholecystitis. CT/Chest WITH Contrast IMPRESSION: 1. Postsurgical changes in the left breast and left axilla. 2. Subsegmental stranding density of probable post radiation fibrotic change noted in the anterior periphery of the left upper lobe. 3. Indeterminate 8 mm pleural-based nodule in the posterior medial right superior sulcus. Follow-up in 3-6 months is advised to document stability. 4. Gallstones. No CT sign of acute cholecystitis. Electronically Signed: Guzman Reveles MD at 14:49 EDT , Service support , CC: Jerman Tam MD; Gabrielle Nguyen DO Agency Development Manager: Signed ONCOLOGY VISIT REPORT Observed: 04/10/2018 Status: F Source: [facility] 2:51 PM REPOSITORY [facility] [address] [place] [address]. [place] [address] OFFICE VISIT Date of Service: 04/10/18 1443 MR#: [id number] Acct: [id number] Name: LILIAN QUACH Rep #: [id number] : 1965 From: Jerman Tam MD Age/Sex: 52/F Location: [facility] Status: Signed Subjective - Date of Service Date of Service:: 04/10/18 - Chief Complaint Survivorship Care Planning - History of Present Illness Mrs. Lilian Quach is a very pleasant 52y.o.woman was found to have an abnormal mammogram in 08/2016. US of Left Breast on 10/18/2016 showed 1.4cm lesion in the 3 o'clock position. 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 She underwent left lumpectomy and sentinel node biopsy on 12/20/2016. Tumor size 15mm, [place] node 1/1 positive with macrometastasis. Pathology stage pT1c pN1-stage IIA. Echo 01/08/17 showed EF 60%. Initiated TC AND weekly Herceptin on 01/15/17. After the Neulasta on body injector deployed with cycle 2, developed epigastric pain which extend into retrosternal area and back. Echocardiogram done on 03/15/2017 showed EF 55%. She finished TC with weekly Herceptin on 05/14/2017. Began Herceptin 6mg/kg every 3 weeks on 05/21/17, intent to complete 1 year of therapy. Completed proposed course of XRT (4256 cGy in 16 fractions, 1000 cGy-boost in 5 fractions) to left breast and low axilla 05/29/17-06/28/17 under the care of Dr. Billings. Echocardiogram on 06/04/2017 showed EF 60%. Started adjuvant Tamoxifen on 07/03/2017. Echocardiogram on 09/20/2017 showed EF 60%. Repeat Echocardiogram on 12/03/2017 was 60%. Finished maintenance adjuvant Herceptin C17 on 12/18/2017. Remains on Tamoxifen, comes for follow up. - Past Medical/Social History Past Medical History Past Medical History: Unknown Cancer: Breast cancer Past Surgical History Surgical: Mastectomy,Tubal ligation Other Surgical History: PARTIAL MASTECTOMY LEFT Family History Paternal Past Medical History: COPD Paternal History of Cancer Prostate cancer Maternal Past Medical History: Hyperlipidemia,Hypertension Maternal History of Cancer: Breast cancer Social History Social History: No changes Smoking Status Never smoker Review of Systems Constitutional:: Denies: Fever, Sweats, Weight loss, Appetite change, Chills Cardiovascular:: Denies: Chest pain, Palpitations, Dyspnea on exertion, Orthopnea, PND, Shortness of breath Respiratory: Denies: Cough, Hemoptysis, Shortness of Breath, Wheezing Gastrointestinal:: Reports: Abdominal pain - L lower quadrant for 1 wk. Genitourinary: Denies: Dysuria, Hematuria, 15, Flank pain Musculoskeletal:: Denies: Back pain, Myalgia, Arthralgia Skin: Denies: Rash, Skin Changes, Wounds Neurological:: Denies: Headache, Dizziness, Visual changes, Tinnitus, Hearing loss Psychiatric: Denies: Anxiety, Depression, Homicidal Ideations, Suicidal Ideations Vital Signs Height 5 ft 7 in Weight: 88.904 kg Weight in Pounds 196.0 lbs BMI 30.7 Pulse Ox 99 - Physical Exam General: Alert, Oriented x3, No apparent distress HEENT: Atraumatic, PERRLA, EOMI, Normocephalic Oropharynx:: Dry mucosa Neck:: Supple, Trachea midline. Negative for: JVD, bilateral Cardiac:: Regular rate, Regular rhythm, Normal S1, Normal S2. Negative for: Murmur Lungs: Clear to auscultation, Excusion symmetrical. Negative for: Rhonchi, Wheezes Abdomen:: Bowel sounds x 4, Soft, Non-distended, Tender. Negative for: Hepatosplenomegaly Extremities:: Negative for: Cyanosis, Edema Neurological: Neuro grossly intact Skin:: Negative for: Lesions, Rash, Petechiae, Ecchymosis Psychiatric:: Appropriate affect, Euthymic Lymphatics:: Negative for: Cervical lymphadenopathy, Supraclavicular lymphadenopathy, Axillary lymphadenopathy Diagnostic Data: 03/28/2018 Echocardiogram EF 60%. Assessment and Plan Left Breast Cancer stage IIA, ER/AK/Her2 positive, finished Carboplatin and Taxotere q 3 wks and Herceptin weekly x 18 wks. Received maintenance Herceptin 6mg/kg q 3 wks from 05/21/2017 to 12/18/2017. On Tamoxifen since 07/03/2017. Echocardiogram on 03/28/2018 shows EF 60%. Abdominal pain ? cause. Plan is to continue Tamoxifen 20mg daily for [address]yrs. [address] c/a/p to rule out metastatic disease. RTC 1 week. Medications: Prescriptions This Visit Medication Instructions Recorded Aspirin [Aspirin EC] 325 mg PO DAILY 08/13/17 Tamoxifen Citrate 20 mg PO DAILY #90 tab 09/24/17 Primary Care Provider: Gabrielle Nguyen DO Referring Provider: Carissa Omalley - Problem List (1) Breast cancer, left breast Status: Resolved Qualifiers: Breast location: upper outer quadrant of breast Estrogen receptor status: positive Patient sex: female Qualified Code(s): C50.412 - Malignant neoplasm of upper-outer quadrant of left female breast; Z17.0 - Estrogen receptor positive status [ER+] (2) History of left breast cancer Status: Chronic (3) Abdominal pain Status: Acute Qualifiers: Abdominal location: left lower quadrant Qualified Code(s): R10.32 - Left lower quadrant pain 04/10/18 1451 <Electronically signed by Jerman Tam MD> Date Jerman Tam MD Cosigner Signature: Date (if applicable) CC: SRIDHAR W/DIFF, AUTOMATED Collected: 04/10/2018 Status: F Source: [facility] 2:03 PM REPOSITORY Order Comment: Reason for Laboratory Test . TYPE CODE TESTS RESULT OUT OF RANGE REFERENCE UNITS LAB L100.1000 4.4-11.0 K/mm3 Normal WBC 5.6 LAB L100.1200 4.2-5.4 M/mm3 Low RBC 3.89 LAB L100.1300 12.0-15.0 g/dl Normal HGB 12.5 LAB L100.1400 37-47 % Normal HCT 37.4 LAB L100.1500 81-99 fL Normal MCV 96.1 LAB L100.1600 27.0-32.0 pg High MCH 32.1 LAB L100.1700 32-36 g/gl Normal MCHC 33.4 LAB L100.1810 11.6-14.6 % Normal RDW CV 12.1 LAB L100.1820 35.1-43.9 fl Normal RDW SD 42.6 LAB L100.1900 150-450 K/mm3 Normal PLT 191 LAB L100.2000 6.2-12.0 fl Normal MPV 10.3 LAB L100.2100 47-70 % Normal NEUT% 54.3 LAB L100.2200 19-41 % Normal LY% 39.3 LAB L100.2300 0-10 % Normal MONO% 4.6 LAB L100.2400 0-5 % Normal EO% 1.4 LAB L100.2500 0-1 % Normal BASO% 0.4 LAB L100.2550 0.0-0.9 % Normal IM GRAN % 0.000 Result Comment: IG% - Immature Granulocytes (promyelocytes, myelocytes and metamyelocytes) > 1% indicates that a LEFT SHIFT is Present. LAB L100.2620 2.0-7.7 X10 3/uL Normal Absolute Neut 3.0 LAB L100.2720 0.83-4.51 X10 3/ul Normal Absolute Lymph 2.20 Performed By: #### L100.0100 #### [facility] [address] [place], [address] COMPREHENSIVE METABOLIC Collected: 04/10/2018 Status: F Source: [facility] 2:03 PM REPOSITORY Order Comment: Reason for Laboratory Test . TYPE CODE TESTS RESULT OUT OF RANGE REFERENCE UNITS LAB L501.0100 74-106 mg/dL Normal GLU 96 Result Comment: Please note revised GLUCOSE reference range effective 2017. LAB L501.1000 7-18 mg/dL Normal BUN 14 LAB L501.1100 0.55-1.02 mg/dL Normal CREAT,SERUM 0.92 Result Comment: The validity of the calculated GFR AND GFRAA in patients over 70 years has not been determined. Clinical correlation is essential. LAB L501.1110 >60 mL/min Normal EST GFR 68 Result Comment: Non- GFR Calc LAB L501.1115 >60 mL/min Normal EST GFR - AA 82 Result Comment: GFR Calc LAB L501.1255 ml/min Normal Estimated CRCL 67.98 LAB L501.1300 10-20 RATIO Normal BUN/CRE 15.3 LAB L501.1500 6.4-8. g/dL Normal 2 T PROT 7.4 LAB L501.1800 3.2-5. g/dL Normal 0 ALB 3.7 LAB L501.1950 2.2-4. g/dL Normal 2 GLOB 3.7 LAB L501.2000 0.9-2. RATIO Normal 4 A/G 1.0 LAB L501.2200 8.5-10 mg/dL Normal .1 CA 8.7 LAB L501.4100 15-37 U/L Normal AST 20 LAB L501.4305 45-117 U/L Normal ALK P 64 LAB L501.4405 13-56 U/L Normal ALT 21 LAB L501.4600 0.20-1 mg/dL Normal .00 T BILI 0.40 LAB L501.5300 136-14 mmol/L Normal 5 NA 143 LAB L501.5600 3.5-5. mmol/L Normal 1 K 4.0 LAB L501.5900 98-107 mmol/L High CL 109 LAB L501.6100 21.0-3 mmol/L Normal 2.0 CO2 26.0 LAB L501.6200 5-15 Normal GAP 8 Performed By: #### L500.4050 #### [facility] [address] [place], [address] ONC ECHOCARDIOGRAM Observed: 03/28/2018 Status: F Source: [facility] COMPLETE 4:43 PM REPOSITORY [facility] Cardiovascular Services [address] [place] [address] ONC Echo Complete 03/28/18 1308 MR#: [id number] Acct: [id number] Name: LILIAN QUACH Rep #: [id number] : 1965 52 From: Juan Rios MD Attending Dr: Yana Braxton NP Status: REG CLI Ordering Dr: Yana Braxton CLINICAL ASSOCIATE-C Date: 03/28/18 Location: [facility] Sex: F C Admitted: Reason For Study: High risk meds Procedure This was a 2D Doppler, Color Flow transthoracic echocardiogram. Myocardial strain analysis was performed in this exam to aid in the assessment of cardiac function. Exam performed in department. Left Ventricle Normal LV size. Left ventricular systolic function is normal. The estimated ejection fraction is 60 %. Transmitral diastolic flow velocities suggest mild (stage 1) diastolic dysfunction (reversed pattern). The global longitudinal strain is normal. The global longitudinal strain = -18 % (normal). No regional wall motion abnormalities noted. Right Ventricle Normal RV size. Normal systolic function. Atria Normal left atrium. Normal right atrium. Mitral Valve Normal mitral valve. Tricuspid Valve Normal tricuspid valve. Aortic Valve Normal aortic valve. Trisinus/trileaflet aortic valve. Pulmonic Valve Normal pulmonic valve. Great Vessels Normal aortic root. The pulmonary artery is normal size. Normal inferior vena cava. Pericardium/Pleural No pericardial effusion. MMode/2D Measurements AND Calculations LVIDd: 4.9 cm IVSd: 0.80 cm Ao root diam: 3.3 cm LVIDs: 3.3 cm LVPWd: 0.79 cm LA dimension: 3.3 cm RVDd: 3.0 cm FS: 33.5 % LAV(MOD-bp): 45.0 ml EDV(MOD-sp4): 104.7 ml EDV(MOD-sp2): 104.1 ml LAV(MOD-bp) Indexed: 22.8 ml/m2 ESV(MOD-sp4): 42.0 ml EF(MOD-sp2): 58.1 % LAV(MOD-sp2): 35.0 ml EF(MOD-sp4): 59.9 % LAV(MOD-sp4): 57.4 ml SV(MOD-sp4): 62.7 ml SV(MOD-sp2): 60.5 ml LA A4 area: 19.0 cm2 RA A4 area: 12.1 cm2 Doppler Measurements AND Calculations MV E max victor manuel: 57.5 cm/sec Lat Peak E' Victor Manuel: 6.6 cm/sec Med Peak E' Victor Manuel: 6.4 cm/sec MV A max victor manuel: 93.3 cm/sec E/E' lat: 8.7 E/E' med: 9.0 MV E/A: 0.62 Ao V2 max: 133.2 cm/sec LV V1 max: 104.7 cm/sec PA V2 max: 88.7 cm/sec Ao max P.1 mmHg LV V1 max P.4 mmHg Interpretation Summary Normal LV size. Left ventricular systolic function is normal. Transmitral diastolic flow velocities suggest mild (stage 1) diastolic dysfunction (reversed pattern). The global longitudinal strain is normal. The global longitudinal strain = -18 % (normal). The estimated ejection fraction is 60 %. Ordering Physician: Yana Braxton Referring Physician: Gabrielle Nguyen Performed By: Yadira Garcia RDCS 03/28/18 1643 Date Juan Rios MD CC: Gabrielle Nguyen DO; Yana Braxton CLINICAL ASSOCIATE Date Dictated: 03/28/18 1308 Date Transcribed: 03/28/18 164 Agency Development Manager: Signed ONCOLOGY VISIT REPORT Observed: 02/05/2018 Status: F Source: [facility] 3:48 PM REPOSITORY [facility] [address] [place] [address] OFFICE VISIT Date of Service: 02/05/18 1003 MR#: [id number] Acct: [id number] Name: LILIAN QUACH Rep #: [id number] : 1965 From: Yana Braxton CLINICAL ASSOCIATE-C Age/Sex: 52/F Location: [facility] Status: Signed Subjective - Date of Service Date of Service:: 02/05/18 - Chief Complaint Survivorship Care Planning - History of Present Illness Mrs. Lilian Quach is a very pleasant 52y.o.woman was found to have an abnormal mammogram in 08/2016. US of Left Breast on 10/18/2016 showed 1.4cm lesion in the 3 o'clock position. 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 She underwent left lumpectomy and sentinel node biopsy on 12/20/2016. Tumor size 15mm, [place] node 1/1 positive with macrometastasis. Pathology stage pT1c pN1-stage IIA. Echo 01/08/17 showed EF 60%. Initiated TC AND weekly Herceptin on 01/15/17. After the Neulasta on body injector deployed with cycle 2, developed epigastric pain which extend into retrosternal area and back. Echocardiogram done on 03/15/2017 showed EF 55%. She finished TC with weekly Herceptin on 05/14/2017. Began Herceptin 6mg/kg every 3 weeks on 05/21/17, intent to complete 1 year of therapy. Completed proposed course of XRT (4256 cGy in 16 fractions, 1000 cGy-boost in 5 fractions) to left breast and low axilla 05/29/17-06/28/17 under the care of Dr. Billings. Echocardiogram on 06/04/2017 showed EF 60%. Started adjuvant Tamoxifen on 07/03/2017. Echocardiogram on 09/20/2017 showed EF 60%. Repeat Echocardiogram on 12/03/2017 was 60%. Finished maintenance adjuvant Herceptin C17 on 12/18/2017. - Interval History The patient is presenting to clinic for survivorship care planning. She denies any concerns r/t today's visit. Reports good tolerance and good adherence to tamoxifen. Pelvic exam up to date. Underwent screening mammogram in September. Performing monthly BSE and denies any palpable masses,skin abnormalities, nipple discharge/retraction. - Past Medical/Social History Past Medical History Past Medical History: Unknown Cancer: Breast cancer Past Surgical History Surgical: Mastectomy,Tubal ligation Other Surgical History: PARTIAL MASTECTOMY LEFT Family History Paternal Past Medical History: COPD Paternal History of Cancer Prostate cancer Maternal Past Medical History: Hyperlipidemia,Hypertension Maternal History of Cancer: Breast cancer Social History Social History: No changes Smoking Status Never smoker Review of Systems Constitutional:: Denies: Fever, Sweats, Weight loss, Appetite change, Chills Cardiovascular:: Denies: Chest pain, Palpitations, Dyspnea on exertion, Orthopnea, PND, Shortness of breath Respiratory: Denies: Cough, Hemoptysis, Shortness of Breath, Wheezing Gastrointestinal:: Denies: Abdominal pain, Nausea, Vomiting, Diarrhea, Constipation, Hematochezia Genitourinary: Denies: Dysuria, Hematuria, 15, Flank pain Musculoskeletal:: Denies: Back pain, Myalgia, Arthralgia Skin: Denies: Rash, Skin Changes, Wounds Neurological:: Denies: Headache, Dizziness, Visual changes, Tinnitus, Hearing loss Psychiatric: Denies: Anxiety, Depression, Homicidal Ideations, Suicidal Ideations Vital Signs Height 5 ft 7 in Weight: 193 lb 9.6 oz Weight in Pounds 193.6 lbs BMI 30.7 Pulse Ox 17 - Physical Exam General: Alert, Oriented x3, No apparent distress HEENT: Atraumatic, Normocephalic Oropharynx:: Negative for: Dry mucosa, Ulcerated lesions Neck:: Supple, Trachea midline. Negative for: JVD, bilateral Cardiac:: Regular rate, Regular rhythm, Normal S1, Normal S2. Negative for: Murmur Lungs: Clear to auscultation, Excusion symmetrical. Negative for: Rhonchi, Wheezes Abdomen:: Bowel sounds x 4, Soft, Non-tender, Non-distended. Negative for: Hepatosplenomegaly Extremities:: Negative for: Cyanosis, Edema Neurological: Neuro grossly intact Skin:: Negative for: Lesions, Rash, Petechiae, Ecchymosis Psychiatric:: Appropriate affect, Euthymic Lymphatics:: Negative for: Cervical lymphadenopathy, Supraclavicular lymphadenopathy, Axillary lymphadenopathy Breast:: - - deferred today Assessment and Plan 1. Left Breast Cancer stage IIA, ER/AK/Her2 positive- Completed Carboplatin and Taxotere q 3 wks x6 cycles and Herceptin weekly x 18 wks, followed by radiation therapy and maintenance Herceptin 6mg/kg q 3 wks from 05/21/2017 to 12/18/2017. Began Tamoxifen since 07/03/2017. Echocardiogram on 12/03/2017 shows EF 60%. Orders placed for echocardiogram as she has completed Herceptin therapy. Reviewed treatment summary and survivorship care plan documentation. Copies of which are provided to the patient and all members of her health care team. Engaged in lengthy conversation regarding potential intermediate frame tender/late side effects associated with chemotherapy exposure, recommendations for follow up and signs/symptoms of concern that should be report in between visits Healthy living recommendations:- Today we spent time discussing healthy lifestyle modifications inclusive of plant based diet including low fat, high fiber foods, low sodium and low cholesterol foods. We also discussed the importance of an exercise regimen of approx 5-6 days a week or physical activity >20 min per day and maintaining a healthy weight as well as moderate alcohol intake; abstinence from tobacco products. We discussed the appropriate health maintenance screenings for this patient. Continue to follow with pcp. Psychosocial AND spiritual health- She is well supported by family and friends. Continues to adjust to life as a cancer survivor. We discussed fear of recurrence, coping strategies and potential resources. Greater than 50% of this one hour visit was spent in counseling and a significant amount of time was allotted for questions. All the patient's concerns were addressed to her satisfaction. Yana Braxton, MSN, HYDROLOGY TEACHER-C, AOCNP Medications: Prescriptions This Visit Medication Instructions Recorded Aspirin [Aspirin EC] 325 mg PO DAILY 08/13/17 Primary Care Provider: Gabrielle Nguyen DO Referring Provider: Carissa Omalley - Problem List (1) Breast cancer, left breast Status: Resolved Qualifiers: Breast location: upper outer quadrant of breast Estrogen receptor status: positive Patient sex: female Qualified Code(s): C50.412 - Malignant neoplasm of upper-outer quadrant of left female breast; Z17.0 - Estrogen receptor positive status [ER+] (2) Encounter for monitoring cardiotoxic drug therapy Status: Acute (3) Educational circumstance Status: Acute 02/05/18 1548 <Electronically signed by Yana MENDOZA> Date Yana MENDOZA Cosigner Signature: Date (if applicable) CC: END OF TREATMENT Observed: 02/05/2018 Status: F Source: [facility] SUMMARY 9:51 AM REPOSITORY [facility] [address] [place] [address] End of Treatment Summary Date of Service: 01/24/18 1410 MR#: [id number] Acct: [id number] Name: LILIAN QUACH Rep #: [id number] : 1965 From: Yana Braxton NP-Gabby Age/Sex: 52/F Location: [facility] Status: Signed General Information Primary Care Provider:: Gabrielle Nguyen Surgeon Name: Carissa Omalley Radiation Oncologist:: Herson Billings Medical Oncologist:: Jerman Tam Other Providers:: Dr. Worley Treatment Summary Problem List: All Active Problems Left breast mass (Acute) Breast cancer, left breast (Resolved) Chemotherapy management, encounter for (Acute) Encounter for monitoring cardiotoxic drug therapy (Acute) Educational circumstance (Acute) Cancer Type / Location / Histology Subtype:: Invasive ductal carcinoma of the left breast Diagnosis Date [year]:: 11/15/16 Stage:: II - IIA (pT1c, pN1) Surgery:: Yes Surgery Date[s] [year]:: 12/20/16 Surgical Procedure / Location / Findings:: Left breast lumpectomy and sentinel lymph node biopsy Radiation:: Yes Body area treated:: left breast End Date [year]:: 06/28/17 Systemic Therapy [chemotherapy, hormonal therapy, other]:: Yes Name of Agents Used and End Date of Usage:: Taxotere/Carboplatin x 6 cycles and weekly Herceptin 01/15/17-05/14/17. Herceptin 6 mg/kg 05/21/17- 12/18/17 Persistent symptoms of side effects at completion of treatment:: Yes If yes, enter type[s]:: mild fatigue Follow-up Care Plan Need for ongoing [adjuvant] treatment for cancer:: Yes Additional Treatment Name #1:: Tamoxifen Planned duration if additional treatment #1:: 10 years beginning 07/03/17 Schedule of Clinical Visits Coordination Provider:: Jerman Tam When/How often:: Every 3-6 months while on tamoxifen Coordination Provider:: Herson Billings When/How often:: Every 6 months, TBD Cancer Surveillance/Other Test Coordination Provider:: Jerman Tam When/How often:: Bilateral screening mammogram annually due 10/26/18 Coordination Provider:: Giovanna Worley When/How often:: pelvic exam annually Coordination Provider:: Jerman Tam When/How often:: Echocardiogram, at the completion of Herceptin therapy Cancer Surveillance/Symptoms: Please continue to see your primary care provider for all general health care recommended for a F your age, including cancer screening tests. Any symptoms should be brought to the attention of your provider: * Anything that represents a brand new symptom * Anything that represents a persistent symptom * Anything you are worried about that might be related to the cancer coming back Cancer survivors may experience issues with the areas listed below:: Emotional and mental health Cancer Survivor Issues - Help: If you have any concerns in these or other areas, please speak with your doctors or nurses to find out how you can get help with them. Other comments:: Prepared by Manuel Braxton, MSN, HYDROLOGY TEACHER-C, AOCNP. Delivered on 02/05/18 02/05/18 0951 <Electronically signed by Yana MENDOZA> Date Yana MENDOZA Cosigner Signature: Date (if applicable) CC: Giovanna Worley MD; Gabrielle Nguyen DO; Herson Billings DO; Carissa Omalley MD SURGERY VISIT REPORT Observed: 01/22/2018 Status: F Source: [facility] 10:38 AM [facility] [address] [place] [address] [address] [place] [address] OFFICE VISIT Date of Service: 01/22/18 MR#: [id number] Acct: [id number] Name: LILIAN QUACH Rep #: [id number] : 1965 Provider: Carissa Omalley MD Age/Sex: 52/F Location: [facility] Status: Signed Intake Intake Visit Reasons: Port Removal Chief Complaint: F/u for Breast cancer therapy. Plastic Fixture Builder Required: No Is patient in pain?: No Allergies No Known Allergies Allergy (Verified 01/22/18 09:06) Medications Aspirin [Aspirin EC] 325 mg PO DAILY 08/13/17 [History Confirmed 01/22/18] Tamoxifen Citrate 20 mg PO DAILY #90 tab 09/24/17 [Rx Confirmed 01/22/18] Famciclovir [Famvir] 500 mg PO TID 1 Days #3 tab 12/18/17 [Rx Confirmed 01/22/18] PFSH Medical History Breast cancer (Acute) Surgical History H/O lumpectomy (Acute) H/O mastectomy (Acute) H/O tubal ligation (Acute) Family History Father COPD (chronic obstructive pulmonary disease) Prostate cancer Mother Hyperlipidemia Hypertension Breast cancer Social History Smoking Status: Never smoker HPI HPI HPI: LILIAN QUACH, is a 52 F who presents to the office today for right IJ port removal Office Procedures Port/Cath Removal Provider Documentation Details:: Patient was placed supine on the table timeout was completed verifying correct patient, procedure, site, positioning, special, prior to beginning procedure. Consent was signed. The right chest was prepped and draped in usual sterile fashion. Local anesthesia of 1% lidocaine with epi was used. The previous right port site was re-incised with a 15 blade scalpel in Metzenbaum scissors were used to sharply incise the capsule surrounding the port. The catheter was removed while pressure was being held on the right IJ site externally. Next the port was removed from the pocket. The incision was closed with 3-0 Vicryl subdermal sutures with Steri's and OpSite. Patient tolerated procedure well and left the office in stable condition. Alert Timing Inspector Alert Billing: Yes Port/Peg 04500 Port Removal Procedure Time Out Time Out Informed consent given: Yes Consent signed: Yes Time out checklist: patient, procedure, site marked/identified, positioning of patient, supplies available, allergies confirmed, team agrees on procedure Time out staff in room: Yes Time out verified: Yes Time out date: 01/22/18 Time out time: 08:56 Assessment AND Plan Problems 1. Encounter for adjustment or management of vascular access device Z45.2 2. Malignant neoplasm of upper-outer quadrant of left breast in female, estrogen receptor positive C50.412 Plan Right chest port successfully removed in office. Patient tolerated procedure well. Follow-up as needed Carissa Omalley M.D. Pager: [phone] [facility] [address] [place] [address], [facility], [address] [place] [address] Office: [phone] Orders Orders: Coding Level of Care Code No Charge Diagnoses Encounter for adjustment or management of vascular access device Z45.2 Malignant neoplasm of upper-outer quadrant of left breast in female, estrogen receptor positive C50.412 Breast location: upper outer quadrant of breast Estrogen receptor status: positive Patient sex: female Additional Codes Port/Peg - Port/Pe Port Removal (02270) Comment port removal 01/22/18 1038 <Electronically signed by Carissa Omalley MD> Date Carissa Omalley MD Cosigner Signature: Date (if applicable) CC: Jerman Tam MD; Gabrielle Nguyen DO ONCOLOGY VISIT REPORT Observed: 01/08/2018 Status: F Source: [facility] 12:28 PM REPOSITORY [facility] [address] [place] [address] OFFICE VISIT Date of Service: 01/08/18 1129 MR#: [id number] Acct: [id number] Name: LILIAN QUACH Rep #: [id number] : 1965 From: Jerman Tam MD Age/Sex: 52/F Location: [facility] Status: Signed Subjective - Date of Service Date of Service:: 01/08/18 - Chief Complaint F/u for Breast cancer therapy. - History of Present Illness Mrs. Lilian Quach is a very pleasant 52y.o.woman was found to have an abnormal mammogram in 08/2016. US of Left Breast on 10/18/2016 showed 1.4cm lesion in the 3 o'clock position. 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 She underwent left lumpectomy and sentinel node biopsy on 12/20/2016. Tumor size 15mm, [place] node 1/1 positive with macrometastasis. Pathology stage pT1c pN1-stage IIA. Echo 01/08/17 showed EF 60%. Initiated TC AND weekly Herceptin on 01/15/17. After the Neulasta on body injector deployed with cycle 2, developed epigastric pain which extend into retrosternal area and back. Echocardiogram done on 03/15/2017 showed EF 55%. She finished TC with weekly Herceptin on 05/14/2017. Began Herceptin 6mg/kg every 3 weeks on 05/21/17, intent to complete 1 year of therapy. Completed proposed course of XRT (4256 cGy in 16 fractions, 1000 cGy-boost in 5 fractions) to left breast and low axilla 05/29/17-06/28/17 under the care of Dr. Billings. Echocardiogram on 06/04/2017 showed EF 60%. Started adjuvant Tamoxifen on 07/03/2017. Echocardiogram on 09/20/2017 showed EF 60%. Repeat Echocardiogram on 12/03/2017 was 60%. Finished maintenance adjuvant Herceptin C17 on 12/18/2017. Comes for follow up. She feels well. - Past Medical/Social History Past Medical History Past Medical History: Unknown Cancer: Breast cancer Past Surgical History Surgical: Mastectomy,Tubal ligation Other Surgical History: PARTIAL MASTECTOMY LEFT Family History Paternal Past Medical History: COPD Paternal History of Cancer Prostate cancer Maternal Past Medical History: Hyperlipidemia,Hypertension Maternal History of Cancer: Breast cancer Social History Social History: No changes Smoking Status Never smoker Review of Systems Constitutional:: Denies: Fever, Sweats, Weight loss, Appetite change, Chills Cardiovascular:: Denies: Chest pain, Palpitations, Dyspnea on exertion, Orthopnea, PND, Shortness of breath Respiratory: Denies: Cough, Hemoptysis, Shortness of Breath, Wheezing Gastrointestinal:: Denies: Abdominal pain, Nausea, Vomiting, Diarrhea, Constipation, Hematochezia Genitourinary: Denies: Dysuria, Hematuria, 15, Flank pain Musculoskeletal:: Denies: Back pain, Myalgia, Arthralgia Skin: Denies: Rash, Skin Changes, Wounds Neurological:: Denies: Headache, Dizziness, Visual changes, Tinnitus, Hearing loss Psychiatric: Denies: Anxiety, Depression, Homicidal Ideations, Suicidal Ideations Vital Signs Height 5 ft 7 in Weight: 88.904 kg Weight in Pounds 196.0 lbs BMI 30.7 Pulse Ox 99 - Physical Exam General: Alert, Oriented x3, No apparent distress, - - [facility] area. Laboratory Data: Laboratory Tests WBC 3.9 L (4.4-11.0) K/mm3 RBC 3.33 L (4.2-5.4) M/mm3 Hgb 10.8 L (12.0-15.0) g/dl Assessment and Plan Left Breast Cancer stage IIA, ER/AK/Her2 positive, finished Carboplatin and Taxotere q 3 wks and Herceptin weekly x 18 wks. Received maintenance Herceptin 6mg/kg q 3 wks from 05/21/2017 to 12/18/2017. On Tamoxifen since 07/03/2017. Tolerated therapy. Echocardiogram on 12/03/2017 shows EF 60%. Plan is to continue Tamoxifen 20mg daily for 10yrs. Survivorship plan. RTC 3 months with CBC,CMP. Medications: Prescriptions This Visit Medication Instructions Recorded Aspirin [Aspirin EC] 325 mg PO DAILY 08/13/17 Tamoxifen Citrate 20 mg PO DAILY #90 tab 09/24/17 Famciclovir [Famvir] 500 mg PO TID 1 Days #3 tab 12/18/17 Primary Care Provider: Gabrielle Nguyen DO Referring Provider: Carissa Omalley - Problem List (1) Breast cancer, left breast Status: Resolved Qualifiers: Breast location: upper outer quadrant of breast Estrogen receptor status: positive Patient sex: female Qualified Code(s): C50.412 - Malignant neoplasm of upper-outer quadrant of left female breast; Z17.0 - Estrogen receptor positive status [ER+] (2) History of left breast cancer Status: Chronic 01/08/18 1228 <Electronically signed by Jerman Tam MD> Date Jerman Tam MD Cosigner Signature: Date (if applicable) CC: CBC W/DIFF, AUTOMATED Collected: 01/08/2018 Status: F Source: [facility] 8:29 AM REPOSITORY Order Comment: Reason for Laboratory Test . TYPE CODE TESTS RESULT OUT OF RANGE REFERENCE UNITS LAB L100.1000 4.4-11.0 K/mm3 Low WBC 3.9 LAB L100.1200 4.2-5.4 M/mm3 Low RBC 3.33 LAB L100.1300 12.0-15.0 g/dl Low HGB 10.8 LAB L100.1400 37-47 % Low HCT 32.2 LAB L100.1500 81-99 fL Normal MCV 96.7 LAB L100.1600 27.0-32.0 pg High MCH 32.4 LAB L100.1700 32-36 g/gl Normal MCHC 33.5 LAB L100.1810 11.6-14.6 % Normal RDW CV 12.3 LAB L100.1820 35.1-43.9 fl Normal RDW SD 41.6 LAB L100.1900 150-450 K/mm3 Normal PLT 165 LAB L100.2000 6.2-12.0 fl Normal MPV 10.3 LAB L100.2100 47-70 % Normal NEUT% 56.8 LAB L100.2200 19-41 % Normal LY% 34.2 LAB L100.2300 0-10 % Normal MONO% 6.7 LAB L100.2400 0-5 % Normal EO% 1.8 LAB L100.2500 0-1 % Normal BASO% 0.5 LAB L100.2550 0.0-0.9 % Normal IM GRAN % 0.000 Result Comment: IG% - Immature Granulocytes (promyelocytes, myelocytes and metamyelocytes) > 1% indicates that a LEFT SHIFT is Present. LAB L100.2620 2.0-7.7 X10 3/uL Normal Absolute Neut 2.2 LAB L100.2720 0.83-4.51 X10 3/ul Normal Absolute Lymph 1.33 Performed By: #### L100.0100, L500.4050 #### [facility] [address] [place], [place], [address] COMPREHENSIVE METABOLIC Collected: 01/08/2018 Status: F Source: [facility] 8:29 AM REPOSITORY Order Comment: Reason for Laboratory Test . TYPE CODE TESTS RESULT OUT OF RANGE REFERENCE UNITS LAB L501.0100 74-106 mg/dL Normal GLU 99 Result Comment: Please note revised GLUCOSE reference range effective 2017. LAB L501.1000 7-18 mg/dL High BUN 20 LAB L501.1100 0.55-1.02 mg/dL Normal CREAT,SERUM 0.76 Result Comment: The validity of the calculated GFR AND GFRAA in patients over 70 years has not been determined. Clinical correlation is essential. LAB L501.1110 >60 mL/min Normal EST GFR 84 Result Comment: Non- GFR Calc LAB L501.1115 >60 mL/min Normal EST GFR - AA 101 Result Comment: GFR Calc LAB L501.1255 ml/min Normal Estimated CRCL 82.29 LAB L501.1300 10-20 RATIO High BUN/CRE 26.2 LAB L501.1500 6.4-8. g/dL Normal 2 T PROT 6.5 LAB L501.1800 3.2-5. g/dL Normal 0 ALB 3.2 LAB L501.1950 2.2-4. g/dL Normal 2 GLOB 3.3 LAB L501.2000 0.9-2. RATIO Normal 4 A/G 1.0 LAB L501.2200 8.5-10 mg/dL Normal .1 CA 8.5 LAB L501.4100 15-37 U/L Normal AST 17 LAB L501.4305 45-117 U/L Normal ALK P 57 LAB L501.4405 13-56 U/L Normal ALT 18 LAB L501.4600 0.20-1 mg/dL Normal .00 T BILI 0.50 LAB L501.5300 136-14 mmol/L Normal 5 NA 143 LAB L501.5600 3.5-5. mmol/L Normal 1 K 4.1 LAB L501.5900 98-107 mmol/L High CL 108 LAB L501.6100 21.0-3 mmol/L Normal 2.0 CO2 26.0 LAB L501.6200 5-15 Normal GAP 9 Performed By: #### L100.0100, L500.4050 #### [facility] [address] [place], [address] DOWNTIME REPORT Observed: 12/20/2017 Status: F Source: [facility] 11:45 AM REPOSITORY [facility] Medical Records Department [address] [place] [address] Downtime Report MR#: [id number] Acct: [id number] Name: LILIAN QUACH Rep #: [id number] : 1965 52 From: Yasmany Hough PCP: Gabrielle Nguyen DO Status: REG CLI This patient was seen during an EMR downtime December 03, 2017 - December 10, 2017. This patient may have a combination of paper and electronic documentation or all paper documentation. All documentation is viewable within the e-chart portion of [employer] for each patient visit. ONCOLOGY VISIT REPORT Observed: 12/18/2017 Status: F Source: [facility] 9:55 AM REPOSITORY [facility] [address] [place] [address] OFFICE VISIT Date of Service: 12/18/17 0946 MR#: [id number] Acct: [id number] Name: LILIAN QUACH Rep #: [id number] : 1965 From: Jerman Tam MD Age/Sex: 52/F Location: OMD Status: Signed Subjective - Date of Service Date of Service:: 12/18/17 - Chief Complaint F/u for Herceptin therapy. - History of Present Illness Mrs. Lilian Quach is a very pleasant 52y.o.woman was found to have an abnormal mammogram in 08/2016. US of Left Breast on 10/18/2016 showed 1.4cm lesion in the 3 o'clock position. 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 She underwent left lumpectomy and sentinel node biopsy on 12/20/2016. Tumor size 15mm, [place] node 1/1 positive with macrometastasis. Pathology stage pT1c pN1-stage IIA. Echo 01/08/17 showed EF 60%. Initiated TC AND weekly Herceptin on 01/15/17. After the Neulasta on body injector deployed with cycle 2, developed epigastric pain which extend into retrosternal area and back. Echocardiogram done on 03/15/2017 showed EF 55%. She finished TC with weekly Herceptin on 05/14/2017. Began Herceptin 6mg/kg every 3 weeks on 05/21/17, intent to complete 1 year of therapy. Completed proposed course of XRT (4256 cGy in 16 fractions, 1000 cGy-boost in 5 fractions) to left breast and low axilla 05/29/17-06/28/17 under the care of Dr. Billings. Echocardiogram on 06/04/2017 showed EF 60%. Started adjuvant Tamoxifen on 07/03/2017. Echocardiogram on 09/20/2017 showed EF 60%. Repeat Echocardiogram on 12/03/2017 was 60%. Comes for maintenance adjuvant Herceptin C17. She feels well. - Past Medical/Social History Past Medical History Past Medical History: Unknown Cancer: Breast cancer Past Surgical History Surgical: Mastectomy,Tubal ligation Other Surgical History: PARTIAL MASTECTOMY LEFT Family History Paternal Past Medical History: COPD Paternal History of Cancer Prostate cancer Maternal Past Medical History: Hyperlipidemia,Hypertension Maternal History of Cancer: Breast cancer Social History Social History: No changes Smoking Status Never smoker Review of Systems Constitutional:: Denies: Fever, Sweats, Weight loss, Appetite change, Chills Cardiovascular:: Denies: Chest pain, Palpitations, Dyspnea on exertion, Orthopnea, PND, Shortness of breath Respiratory: Denies: Cough, Hemoptysis, Shortness of Breath, Wheezing Gastrointestinal:: Denies: Abdominal pain, Nausea, Vomiting, Diarrhea, Constipation, Hematochezia Genitourinary: Denies: Dysuria, Hematuria, 15, Flank pain Musculoskeletal:: Denies: Back pain, Myalgia, Arthralgia Skin: Denies: Rash, Skin Changes, Wounds Neurological:: Denies: Headache, Dizziness, Visual changes, Tinnitus, Hearing loss Psychiatric: Denies: Anxiety, Depression, Homicidal Ideations, Suicidal Ideations Vital Signs Height 5 ft 7 in Weight: 87.997 kg Weight in Pounds 194.0 lbs BMI 30.7 Pulse Ox 99 - Physical Exam General: Alert, Oriented x3, No apparent distress HEENT: Atraumatic, PERRLA, EOMI, Normocephalic Oropharynx:: Dry mucosa Neck:: Supple, Trachea midline. Negative for: JVD, bilateral Cardiac:: Regular rate, Regular rhythm, Normal S1, Normal S2. Negative for: Murmur Lungs: Clear to auscultation, Excusion symmetrical. Negative for: Rhonchi, Wheezes Abdomen:: Bowel sounds x 4, Soft, Non-tender, Non-distended. Negative for: Hepatosplenomegaly Extremities:: Negative for: Cyanosis, Edema Neurological: Neuro grossly intact Skin:: Negative for: Lesions, Rash, Petechiae, Ecchymosis Psychiatric:: Appropriate affect, Euthymic Lymphatics:: Negative for: Cervical lymphadenopathy, Supraclavicular lymphadenopathy, Axillary lymphadenopathy Laboratory Data: Laboratory Tests WBC 3.7 L (4.4-11.0) K/mm3 RBC 3.49 L (4.2-5.4) M/mm3 Hgb 11.2 L (12.0-15.0) g/dl Assessment and Plan Left Breast Cancer stage IIA, ER/AK/Her2 positive, finished Carboplatin and Taxotere q 3 wks and Herceptin weekly x 18 wks. Now on Herceptin 6mg/kg q3 wks to complete 1 yr of adjuvant therapy since 05/21/2017. Tolerating therapy. Echocardiogram on 12/03/2017 shows EF 60%. Plan is to proceed with Herceptin 6mg/kg q 3 wks C11. RTc 3 wks with CBC,CMP for Herceptin C12. Medications: Prescriptions This Visit Medication Instructions Recorded Aspirin [Aspirin EC] 325 mg PO DAILY 08/13/17 Tamoxifen Citrate 20 mg PO DAILY #90 tab 09/24/17 Famciclovir [Famvir] 500 mg PO TID 1 Days #3 tab 12/18/17 Primary Care Provider: Gabrielle Nguyen DO Referring Provider: Carissa Omalley - Problem List (1) Breast cancer, left breast Status: Chronic Qualifiers: Breast location: upper outer quadrant of breast Estrogen receptor status: positive Patient sex: female Qualified Code(s): C50.412 - Malignant neoplasm of upper-outer quadrant of left female breast; Z17.0 - Estrogen receptor positive status [ER+] (2) Chemotherapy management, encounter for Status: Acute Code Visit Office Visits / Consults: [id number] OV L5 Est 12/18/17 0955 <Electronically signed by Jerman Tam MD> Date Jerman Jones Signature: Date (if applicable) CC: CBC W/DIFF, AUTOMATED Collected: 12/18/2017 Status: F Source: [facility] 8:52 AM REPOSITORY Order Comment: Reason for Laboratory Test . TYPE CODE TESTS RESULT OUT OF RANGE REFERENCE UNITS LAB L100.1000 4.4-11.0 K/mm3 Low WBC 3.7 LAB L100.1200 4.2-5.4 M/mm3 Low RBC 3.49 LAB L100.1300 12.0-15.0 g/dl Low HGB 11.2 LAB L100.1400 37-47 % Low HCT 33.2 LAB L100.1500 81-99 fL Normal MCV 95.1 LAB L100.1600 27.0-32.0 pg High MCH 32.1 LAB L100.1700 32-36 g/gl Normal MCHC 33.7 LAB L100.1810 11.6-14.6 % Normal RDW CV 12.7 LAB L100.1820 35.1-43.9 fl Normal RDW SD 43.3 LAB L100.1900 150-450 K/mm3 Normal PLT 151 LAB L100.2000 6.2-12.0 fl Normal MPV 9.3 LAB L100.2100 47-70 % Normal NEUT% 54.7 LAB L100.2200 19-41 % Normal LY% 36.2 LAB L100.2300 0-10 % Normal MONO% 6.2 LAB L100.2400 0-5 % Normal EO% 2.4 LAB L100.2500 0-1 % Normal BASO% 0.5 LAB L100.2550 0.0-0.9 % Normal IM GRAN % 0.000 Result Comment: IG% - Immature Granulocytes (promyelocytes, myelocytes and metamyelocytes) > 1% indicates that a LEFT SHIFT is Present. LAB L100.2620 2.0-7.7 X10 3/uL Normal Absolute Neut 2.0 LAB L100.2720 0.83-4.51 X10 3/ul Normal Absolute Lymph 1.35 Performed By: #### L100.0100 #### [facility] [address] [place], [place], [address] COMPREHENSIVE METABOLIC Collected: 12/18/2017 Status: F Source: [facility] 8:52 AM REPOSITORY Order Comment: Reason for Laboratory Test . TYPE CODE TESTS RESULT OUT OF RANGE REFERENCE UNITS LAB L501.0100 74-106 mg/dL Normal GLU 79 Result Comment: Please note revised GLUCOSE reference range effective 2017. LAB L501.1000 7-18 mg/dL Normal BUN 18 LAB L501.1100 0.55-1.02 mg/dL Normal CREAT,SERUM 0.68 Result Comment: The validity of the calculated GFR AND GFRAA in patients over 70 years has not been determined. Clinical correlation is essential. LAB L501.1110 >60 mL/min Normal EST GFR 95 Result Comment: Non- GFR Calc LAB L501.1115 >60 mL/min Normal EST GFR - AA 116 Result Comment: GFR Calc LAB L501.1255 ml/min Normal Estimated CRCL 91.97 LAB L501.1300 10-20 RATIO High BUN/CRE 26.4 LAB L501.1500 6.4-8. g/dL Normal 2 T PROT 6.7 LAB L501.1800 3.2-5. g/dL Normal 0 ALB 3.3 LAB L501.1950 2.2-4. g/dL Normal 2 GLOB 3.4 LAB L501.2000 0.9-2. RATIO Normal 4 A/G 1.0 LAB L501.2200 8.5-10 mg/dL Normal .1 CA 8.5 LAB L501.4100 15-37 U/L Normal AST 21 LAB L501.4305 45-117 U/L Normal ALK P 65 LAB L501.4405 13-56 U/L Normal ALT 23 LAB L501.4600 0.20-1 mg/dL Normal .00 T BILI 0.50 LAB L501.5300 136-14 mmol/L Normal 5 NA 142 LAB L501.5600 3.5-5. mmol/L Normal 1 K 4.2 LAB L501.5900 98-107 mmol/L Normal CL 107 LAB L501.6100 21.0-3 mmol/L Normal 2.0 CO2 28.0 LAB L501.6200 5-15 Normal GAP 7 Performed By: #### L500.4050 #### [facility] [address] [place], [address] ONCOLOGY VISIT REPORT Observed: 11/27/2017 Status: F Source: [facility] 9:27 AM REPOSITORY [facility] [address] [place] [address] OFFICE VISIT Date of Service: 11/27/17 0924 MR#: [id number] Acct: [id number] Name: LILIAN QUACH Rep #: [id number] : 1965 From: Jerman Tam MD Age/Sex: 52/F Location: OMD Status: Signed Subjective - Date of Service Date of Service:: 11/27/17 - Chief Complaint F/u for Herceptin therapy. - History of Present Illness Mrs. Lilian Quach is a very pleasant 52y.o.woman was found to have an abnormal mammogram in 08/2016. US of Left Breast on 10/18/2016 showed 1.4cm lesion in the 3 o'clock position. 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 She underwent left lumpectomy and sentinel node biopsy on 12/20/2016. Tumor size 15mm, [place] node 1/1 positive with macrometastasis. Pathology stage pT1c pN1-stage IIA. Echo 01/08/17 showed EF 60%. Initiated TC AND weekly Herceptin on 01/15/17. After the Neulasta on body injector deployed with cycle 2, developed epigastric pain which extend into retrosternal area and back. Echocardiogram done on 03/15/2017 showed EF 55%. She finished TC with weekly Herceptin on 05/14/2017. Began Herceptin 6mg/kg every 3 weeks on 05/21/17, intent to complete 1 year of therapy. Completed proposed course of XRT (4256 cGy in 16 fractions, 1000 cGy-boost in 5 fractions) to left breast and low axilla 05/29/17-06/28/17 under the care of Dr. Billings. Echocardiogram on 06/04/2017 showed EF 60%. Started adjuvant Tamoxifen on 07/03/2017. Echocardiogram on 09/20/2017 showed EF 60%. Comes for maintenance adjuvant Herceptin C10. She feels well, hair is growing back. - Past Medical/Social History Past Medical History Past Medical History: Unknown Cancer: Breast cancer Past Surgical History Surgical: Mastectomy,Tubal ligation Other Surgical History: PARTIAL MASTECTOMY LEFT Family History Paternal Past Medical History: COPD Paternal History of Cancer Prostate cancer Maternal Past Medical History: Hyperlipidemia,Hypertension Maternal History of Cancer: Breast cancer Social History Social History: No changes Smoking Status Never smoker Review of Systems Constitutional:: Denies: Fever, Sweats, Weight loss, Appetite change, Chills Cardiovascular:: Denies: Chest pain, Palpitations, Dyspnea on exertion, Orthopnea, PND, Shortness of breath Respiratory: Denies: Cough, Hemoptysis, Shortness of Breath, Wheezing Gastrointestinal:: Denies: Abdominal pain, Nausea, Vomiting, Diarrhea, Constipation, Hematochezia Genitourinary: Denies: Dysuria, Hematuria, 15, Flank pain Musculoskeletal:: Denies: Back pain, Myalgia, Arthralgia Skin: Denies: Rash, Skin Changes, Wounds Neurological:: Denies: Headache, Dizziness, Visual changes, Tinnitus, Hearing loss Psychiatric: Denies: Anxiety, Depression, Homicidal Ideations, Suicidal Ideations Vital Signs Height 5 ft 7 in Weight: 87.543 kg Weight in Pounds 193.0 lbs BMI 30.7 Pulse Ox 99 - Physical Exam General: Alert, Oriented x3, No apparent distress, - - [place] HEENT: Atraumatic, PERRLA, EOMI, Normocephalic Oropharynx:: Dry mucosa Neck:: Supple, Trachea midline. Negative for: JVD, bilateral Cardiac:: Regular rate, Regular rhythm, Normal S1, Normal S2. Negative for: Murmur Lungs: Clear to auscultation, Excusion symmetrical. Negative for: Rhonchi, Wheezes Abdomen:: Bowel sounds x 4, Soft, Non-tender, Non-distended. Negative for: Hepatosplenomegaly Extremities:: Negative for: Cyanosis, Edema Neurological: Neuro grossly intact Skin:: Negative for: Lesions, Rash, Petechiae, Ecchymosis Psychiatric:: Appropriate affect, Euthymic Lymphatics:: Negative for: Cervical lymphadenopathy, Supraclavicular lymphadenopathy, Axillary lymphadenopathy Laboratory Data: Laboratory Tests WBC 5.6 (4.4-11.0) K/mm3 RBC 3.57 L (4.2-5.4) M/mm3 Hgb 11.4 L (12.0-15.0) g/dl Assessment and Plan Left Breast Cancer stage IIA, ER/AK/Her2 positive, finished Carboplatin and Taxotere q 3 wks and Herceptin weekly x 18 wks. Now on Herceptin 6mg/kg q3 wks to complete 1 yr of adjuvant therapy since 05/21/2017. Tolerating therapy. Echocardiogram on 09/20/2017 shows EF 60%. Plan is to proceed with Herceptin 6mg/kg q 3 wks C10. Will continue to monitor EF, Echocardiogram due in November 2017. RTc 3 wks with CBC,CMP for Herceptin C11. Medications: Prescriptions This Visit Medication Instructions Recorded Aspirin [Aspirin EC] 325 mg PO DAILY 08/13/17 Tamoxifen Citrate 20 mg PO DAILY #90 tab 09/24/17 Primary Care Provider: Gabrielle Nguyen DO Referring Provider: Carissa Omalley - Problem List (1) Breast cancer, left breast Status: Chronic Qualifiers: Breast location: upper outer quadrant of breast Estrogen receptor status: positive Patient sex: female Qualified Code(s): C50.412 - Malignant neoplasm of upper-outer quadrant of left female breast; Z17.0 - Estrogen receptor positive status [ER+] (2) Chemotherapy management, encounter for Status: Acute 11/27/17 0927 <Electronically signed by Jerman Tam MD> Date Jerman Tam MD Cosigner Signature: Date (if applicable) CC: CBC W/DIFF, AUTOMATED Collected: 11/27/2017 Status: F Source: [facility] 8:40 AM REPOSITORY Order Comment: Reason for Laboratory Test . TYPE CODE TESTS RESULT OUT OF RANGE REFERENCE UNITS LAB L100.1000 4.4-11.0 K/mm3 Normal WBC 5.6 LAB L100.1200 4.2-5.4 M/mm3 Low RBC 3.57 LAB L100.1300 12.0-15.0 g/dl Low HGB 11.4 LAB L100.1400 37-47 % Low HCT 34.2 LAB L100.1500 81-99 fL Normal MCV 95.8 LAB L100.1600 27.0-32.0 pg Normal MCH 31.9 LAB L100.1700 32-36 g/gl Normal MCHC 33.3 LAB L100.1810 11.6-14.6 % Normal RDW CV 12.0 LAB L100.1820 35.1-43.9 fl Normal RDW SD 40.8 LAB L100.1900 150-450 K/mm3 Low PLT 147 LAB L100.2000 6.2-12.0 fl Normal MPV 10.7 LAB L100.2100 47-70 % Normal NEUT% 68.5 LAB L100.2200 19-41 % Normal LY% 25.0 LAB L100.2300 0-10 % Normal MONO% 4.7 LAB L100.2400 0-5 % Normal EO% 1.3 LAB L100.2500 0-1 % Normal BASO% 0.5 LAB L100.2550 0.0-0.9 % Normal IM GRAN % 0.000 Result Comment: IG% - Immature Granulocytes (promyelocytes, myelocytes and metamyelocytes) > 1% indicates that a LEFT SHIFT is Present. LAB L100.2620 2.0-7.7 X10 3/uL Normal Absolute Neut 3.8 LAB L100.2720 0.83-4.51 X10 3/ul Normal Absolute Lymph 1.39 Performed By: #### L100.0100 #### [facility] [address] [place], [place], [address] COMPREHENSIVE METABOLIC Collected: 11/27/2017 Status: F Source: [facility] 8:40 AM REPOSITORY Order Comment: Reason for Laboratory Test . TYPE CODE TESTS RESULT OUT OF RANGE REFERENCE UNITS LAB L501.0100 74-106 mg/dL High GLU 117 Result Comment: Fasting Glucose result from 100 to 125 mg/dL suggests IMPAIRED HOMEOSTASIS per A.D.A. criteria. Please note revised GLUCOSE reference range effective 2017. LAB L501.1000 7-18 mg/dL Normal BUN 16 LAB L501.1100 0.55-1.02 mg/dL Normal CREAT,SERUM 0.81 Result Comment: The validity of the calculated GFR AND GFRAA in patients over 70 years has not been determined. Clinical correlation is essential. LAB L501.1110 >60 mL/min Normal EST GFR 78 Result Comment: Non- GFR Calc LAB L501.1115 >60 mL/min Normal EST GFR - AA 95 Result Comment: GFR Calc LAB L501.1255 ml/min Normal Estimated CRCL 77.21 LAB L501.1300 10-20 RATIO Normal BUN/CRE 19.8 LAB L501.1500 6.4-8. g/dL Normal 2 T PROT 6.6 LAB L501.1800 3.2-5. g/dL Normal 0 ALB 3.4 LAB L501.1950 2.2-4. g/dL Normal 2 GLOB 3.2 LAB L501.2000 0.9-2. RATIO Normal 4 A/G 1.1 LAB L501.2200 8.5-10 mg/dL Low .1 CA 8.3 LAB L501.4100 15-37 U/L Normal AST 18 LAB L501.4305 45-117 U/L Normal ALK P 60 LAB L501.4405 13-56 U/L Normal ALT 17 LAB L501.4600 0.20-1 mg/dL Normal .00 T BILI 0.70 LAB L501.5300 136-14 mmol/L Normal 5 NA 142 LAB L501.5600 3.5-5. mmol/L Normal 1 K 3.8 LAB L501.5900 98-107 mmol/L High CL 109 LAB L501.6100 21.0-3 mmol/L Normal 2.0 CO2 26.0 LAB L501.6200 5-15 Normal GAP 7 Performed By: #### L500.4050 #### [facility] [address] [place], [address] ONCOLOGY VISIT REPORT Observed: 11/06/2017 Status: F Source: [facility] 9:34 AM REPOSITORY [facility] [address] [place] [address] OFFICE VISIT Date of Service: 11/06/17 0923 MR#: [id number] Acct: [id number] Name: LILIAN QUACH Rep #: [id number] : 1965 From: Jerman Tam MD Age/Sex: 52/F Location: OMD Status: Signed Subjective - Date of Service Date of Service:: 11/06/17 - Chief Complaint F/u for Herceptin therapy. - History of Present Illness Mrs. Lilian Quach is a very pleasant 52y.o.woman was found to have an abnormal mammogram in 08/2016. US of Left Breast on 10/18/2016 showed 1.4cm lesion in the 3 o'clock position. 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 She underwent left lumpectomy and sentinel node biopsy on 12/20/2016. Tumor size 15mm, [place] node 1/1 positive with macrometastasis. Pathology stage pT1c pN1-stage IIA. Echo 01/08/17 showed EF 60%. Initiated TC AND weekly Herceptin on 01/15/17. After the Neulasta on body injector deployed with cycle 2, developed epigastric pain which extend into retrosternal area and back. Echocardiogram done on 03/15/2017 showed EF 55%. She finished TC with weekly Herceptin on 05/14/2017. Began Herceptin 6mg/kg every 3 weeks on 05/21/17, intent to complete 1 year of therapy. Completed proposed course of XRT (4256 cGy in 16 fractions, 1000 cGy-boost in 5 fractions) to left breast and low axilla 05/29/17-06/28/17 under the care of Dr. Billings. Echocardiogram on 06/04/2017 showed EF 60%. Started adjuvant Tamoxifen on 07/03/2017. Echocardiogram on 09/20/2017 showed EF 60%. Comes for maintenance adjuvant Herceptin C9. She feels well, hair is growing back. - Past Medical/Social History Past Medical History Past Medical History: Unknown Cancer: Breast cancer Past Surgical History Surgical: Mastectomy,Tubal ligation Other Surgical History: PARTIAL MASTECTOMY LEFT Family History Paternal Past Medical History: COPD Paternal History of Cancer Prostate cancer Maternal Past Medical History: Hyperlipidemia,Hypertension Maternal History of Cancer: Breast cancer Social History Social History: No changes Smoking Status Never smoker Review of Systems Constitutional:: Denies: Fever, Sweats, Weight loss, Appetite change, Chills Cardiovascular:: Denies: Chest pain, Palpitations, Dyspnea on exertion, Orthopnea, PND, Shortness of breath Respiratory: Denies: Cough, Hemoptysis, Shortness of Breath, Wheezing Gastrointestinal:: Denies: Abdominal pain, Nausea, Vomiting, Diarrhea, Constipation, Hematochezia Genitourinary: Denies: Dysuria, Hematuria, 15, Flank pain Musculoskeletal:: Denies: Back pain, Myalgia, Arthralgia Skin: Denies: Rash, Skin Changes, Wounds Neurological:: Denies: Headache, Dizziness, Visual changes, Tinnitus, Hearing loss Psychiatric: Denies: Anxiety, Depression, Homicidal Ideations, Suicidal Ideations Vital Signs Height 5 ft 7 in Weight: 87.09 kg Weight in Pounds 192.0 lbs BMI 30.7 Pulse Ox 100 - Physical Exam General: Alert, Oriented x3, No apparent distress, - - [place] HEENT: Atraumatic, PERRLA, EOMI, Normocephalic Oropharynx:: Dry mucosa Neck:: Supple, Trachea midline. Negative for: JVD, bilateral Cardiac:: Regular rate, Regular rhythm, Normal S1, Normal S2. Negative for: Murmur Lungs: Clear to auscultation, Excusion symmetrical. Negative for: Rhonchi, Wheezes Abdomen:: Bowel sounds x 4, Soft, Non-tender, Non-distended. Negative for: Hepatosplenomegaly Extremities:: Negative for: Cyanosis, Edema Neurological: Neuro grossly intact Skin:: Negative for: Lesions, Rash, Petechiae, Ecchymosis Psychiatric:: Appropriate affect, Euthymic Lymphatics:: Negative for: Cervical lymphadenopathy, Supraclavicular lymphadenopathy, Axillary lymphadenopathy Laboratory Data: 11/06/2017 CBC/CMP REVIEWED. Assessment and Plan Left Breast Cancer stage IIA, ER/AK/Her2 positive, finished Carboplatin and Taxotere q 3 wks and Herceptin weekly x 18 wks. Now on Herceptin 6mg/kg q3 wks to complete 1 yr of adjuvant therapy since 05/21/2017. Tolerating therapy. Echocardiogram on 09/20/2017 shows EF 60%. Plan is to proceed with Herceptin 6mg/kg q 3 wks C9. Will continue to monitor EF, Echocardiogram due in November 2017. RTc 3 wks with CBC,CMP for Herceptin C10. Medications: Prescriptions This Visit Medication Instructions Recorded Aspirin [Aspirin EC] 325 mg PO DAILY 08/13/17 Tamoxifen Citrate 20 mg PO DAILY #90 tab 09/24/17 Primary Care Provider: Gabrielle Nguyen DO Referring Provider: Carissa Omalley - Problem List (1) Breast cancer, left breast Status: Chronic Qualifiers: Breast location: upper outer quadrant of breast Estrogen receptor status: positive Patient sex: female Qualified Code(s): C50.412 - Malignant neoplasm of upper-outer quadrant of left female breast; Z17.0 - Estrogen receptor positive status [ER+] (2) Chemotherapy management, encounter for Status: Acute Code Visit Office Visits / Consults: [id number] OV L5 Est 11/06/17 0934 <Electronically signed by Jerman Tam MD> Date Jerman Tam MD Cosigner Signature: Date (if applicable) CC: CBC W/DIFF, AUTOMATED Collected: 11/06/2017 Status: F Source: [facility] 8:29 AM REPOSITORY Order Comment: Reason for Laboratory Test CHEMO TYPE CODE TESTS RESULT OUT OF RANGE REFERENCE UNITS LAB L100.1000 4.4-11.0 K/mm3 Low WBC 3.4 LAB L100.1200 4.2-5.4 M/mm3 Low RBC 3.46 LAB L100.1300 12.0-15.0 g/dl Low HGB 11.2 LAB L100.1400 37-47 % Low HCT 33.2 LAB L100.1500 81-99 fL Normal MCV 96.0 LAB L100.1600 27.0-32.0 pg High MCH 32.4 LAB L100.1700 32-36 g/gl Normal MCHC 33.7 LAB L100.1810 11.6-14.6 % Normal RDW CV 12.3 LAB L100.1820 35.1-43.9 fl Normal RDW SD 41.6 LAB L100.1900 150-450 K/mm3 Low PLT 144 LAB L100.2000 6.2-12.0 fl Normal MPV 10.1 LAB L100.2100 47-70 % Normal NEUT% 54.9 LAB L100.2200 19-41 % Normal LY% 34.6 LAB L100.2300 0-10 % Normal MONO% 6.7 LAB L100.2400 0-5 % Normal EO% 2.0 LAB L100.2500 0-1 % High BASO% 1.5 LAB L100.2550 0.0-0.9 % Normal IM GRAN % 0.300 Result Comment: IG% - Immature Granulocytes (promyelocytes, myelocytes and metamyelocytes) > 1% indicates that a LEFT SHIFT is Present. LAB L100.2620 2.0-7.7 X10 3/uL Low Absolute Neut 1.9 LAB L100.2720 0.83-4.51 X10 3/ul Normal Absolute Lymph 1.19 Performed By: #### L100.0100, L500.4050 #### [facility] [address] [place], [place], [address] COMPREHENSIVE METABOLIC Collected: 11/06/2017 Status: F Source: [facility] 8:29 AM REPOSITORY Order Comment: Reason for Laboratory Test CHEMO TYPE CODE TESTS RESULT OUT OF RANGE REFERENCE UNITS LAB L501.0100 74-106 mg/dL Normal GLU 87 Result Comment: Please note revised GLUCOSE reference range effective 2017. LAB L501.1000 7-18 mg/dL High BUN 21 LAB L501.1100 0.55-1.02 mg/dL Normal CREAT,SERUM 0.70 Result Comment: The validity of the calculated GFR AND GFRAA in patients over 70 years has not been determined. Clinical correlation is essential. LAB L501.1110 >60 mL/min Normal EST GFR 92 Result Comment: Non- GFR Calc LAB L501.1115 >60 mL/min Normal EST GFR - AA 112 Result Comment: GFR Calc LAB L501.1255 ml/min Normal Estimated CRCL 89.34 LAB L501.1300 10-20 RATIO High BUN/CRE 29.9 LAB L501.1500 6.4-8. g/dL Normal 2 T PROT 6.9 LAB L501.1800 3.2-5. g/dL Normal 0 ALB 3.4 LAB L501.1950 2.2-4. g/dL Normal 2 GLOB 3.5 LAB L501.2000 0.9-2. RATIO Normal 4 A/G 1.0 LAB L501.2200 8.5-10 mg/dL Normal .1 CA 8.5 LAB L501.4100 15-37 U/L Normal AST 20 LAB L501.4305 45-117 U/L Normal ALK P 58 LAB L501.4405 13-56 U/L Normal ALT 19 LAB L501.4600 0.20-1 mg/dL Normal .00 T BILI 0.60 LAB L501.5300 136-14 mmol/L Normal 5 NA 143 LAB L501.5600 3.5-5. mmol/L Normal 1 K 4.0 LAB L501.5900 98-107 mmol/L Normal CL 106 LAB L501.6100 21.0-3 mmol/L Normal 2.0 CO2 28.0 LAB L501.6200 5-15 Normal GAP 9 Performed By: #### L100.0100, L500.4050 #### [facility] [address] [place], [address] ONCOLOGY FOLLOW-UP Observed: 10/30/2017 Status: F Source: [facility] 10:41 AM REPOSITORY [facility] Medical Records Department [address] [place] [address] Oncology Follow-Up Visit 10/30/17 1028 MR#: [id number] Acct: [id number] Name: LILIAN QUACH Rep #: [id number] : 1965 52 From: Herson Billings DO PCP: Gabrielle Nguyen DO Status: REG RCR Y Location: [facility] Date of Service: 10/30/17 Last Clinic Visit: 07/24/17 Diagnosis: Lilian Quach is a 52-year-old postmenopausal female diagnosed with pathologic stage IIA (pT1c N1a (sn) M0) grade 2 invasive ductal carcinoma (ER > 95%, AK 6%, HER-2 2+ on IHC and amplified on FISH) of the left breast status post lumpectomy and sentinel lymph node biopsy completed on 12/20/2016, and adjuvant chemotherapy consisting of TCH 6 cycles completed from 01/15/2017 - 05/01/2017. From 05/29/17 - 06/28/17 she received adjuvant radiation therapy consisting of 4256 cGy in 16 fractions directed to the left breast and low axilla followed by a boost consisting of 1000 cGy in 5 fractions directed to the lumpectomy cavity. History of Present Illness: 10/12/2016: Bilateral screening mammography was completed and showed evidence of a 1.3 x 1.4 cm irregular nodule in the deep upper lateral portion of the left breast. Recommended ultrasound for further evaluation, BI-RADS 0. 10/18/2016: Left breast ultrasound was performed and confirmed the existence of a 1.4 x 0.9 cm lesion in the outer inferior quadrant of the left breast at the 3 o'clock position about 7 cm from the nipple. BI-RADS 4. 11/15/2016: Ultrasound-guided core biopsy of the left breast mass was performed. Pathology demonstrated grade 2 invasive ductal carcinoma (ER > 95%, AK 6%, HER-2 2+ on IHC and amplified on FISH) which measured 1 cm in greatest diameter. 12/20/2016: The patient underwent left breast lumpectomy and sentinel lymph node biopsy and pathology demonstrated a single focus of grade 2 invasive ductal carcinoma measuring 1.5 cm, margins negative (initial margin is less than 0.1 cm posteriorly but upon re-resection this is greater than 1 cm), no lymphovascular space invasion, 1 of one sentinel lymph node biopsy is positive with 2 foci of metastatic disease the largest being 0.5 cm and no extranodal extension is identified, pathologic stage pT1c N1a. From 01/15/2017 to 05/01/2017: Completed adjuvant chemotherapy consisting of Taxotere and carboplatin 6 cycles given concurrently with Herceptin. From 05/29/17 06/28/17: received adjuvant radiation therapy consisting of 4256 cGy in 16 fractions directed to the left breast and low axilla followed by a boost consisting of 1000 cGy in 5 fractions directed to the lumpectomy cavity. 07/03/17: initiated Tamoxifen 07/23/17: Received Herceptin, final Herceptin planned for December 2017 10/25/2017: Bilateral screening mammogram with 3D tomosynthesis was performed. The breast composition is heterogeneously dense which could obscure small breast masses, there is asymmetry with architectural distortion in the region of multiple surgical clips within the mid to deep upper lateral left breast with mild overlying skin thickening and retraction, the patient also appears to be status post left axillary reyna dissection and these findings are consistent with postoperative and postsurgical fibrosis/scarring. There are few scattered typical benign-appearing calcifications and no other significant changes since the prior study. BI-RADS Category 2. Radiation Treatment History: 1) From 05/29/17 06/28/17: received adjuvant radiation therapy consisting of 4256 cGy in 16 fractions directed to the left breast and low axilla followed by a boost consisting of 1000 cGy in 5 fractions directed to the lumpectomy cavity. No pacemaker, no history of collagen vascular disease. Interval History: Lilian Quach returns for routine follow-up 5 months after completing radiation therapy. She is continuing to take Herceptin every 3 weeks and will continue this for 1 year so will conclude in December, and she is also taking tamoxifen without difficulty. She complains of mild hot flashes which have been persistent and are not new. She denies having breast pain, swelling/edema, skin changes, nipple discharge or inversion, changes in arm range of motion, shoulder pain, or swelling in her arm. Her energy has continued to improve gradually she is feeling more back to herself now. She is working full-time without difficulty. She reports not having a regular exercise plan. She denies having chest pain, shortness of breath, or cough. I have reviewed the medical, surgical, and other pertinent history in details and have updated medication and allergy information in the electronic medical record. Health Maintenance Do you regularly see your No primary care physician? Have you ever had a No colonoscopy? Review of Systems: A 12-point review of systems was completed and was negative except for what is noted in the HPI/Interval History and by the nurse. Height/Weight/BMI: Height: 5 ft 7 in Weight: 191 lbs (stable for at least 3 months) BMI: 30.7 Vital Signs Temperature 98.6 F 10/30/17 09:58 Temperature Source Oral 10/30/17 09:58 Pulse Rate 70 10/30/17 09:58 Respiratory Rate 16 10/30/17 09:58 Respiratory Pattern Normal 04/17/18 09:43 Physical Exam: ECO KARNOFSKY SCORE: 100% CONSTITUTIONAL: Well-developed, well-nourished, and in no apparent distress. NECK: Supple,with no thyromegaly, and non-tender. Trachea midline. No cervical or supraclavicular adenopathy noted. CARDIAC: Regular rate and rhythm. Normal S1, S2. No murmurs, rubs, or gallops. PULMONARY/CHEST: Lungs are clear to auscultation and percussion bilaterally. No wheezes, rhonchi, or crackles noted. No increased work of breathing. ABDOMINAL: Abdomen soft, non-tender, non-distended. No hepatomegaly. Normoactive bowel sounds in all four quadrants. No guarding, rebound. BREAST: Bilateral breasts are examined in the seated and supine positions. There is mild asymmetry with some decreased size of the left breast as compared to the right. There is a well-healed lumpectomy scar apparent in the outer portion of the left breast around 3 o'clock position with a very small amount of fibrous tissue beneath, non-tender to palpation. There is no evidence for hyperpigmentation, desquamation, rash, or erythema. There are no palpable masses in either breast or axilla and there is normal arm range of motion. BACK: Straight and aligned. No CVA tenderness. Axial skeleton non-tender to percussion. EXTREMITIES: Full range of motion in all four extremities, with normal strength equally and symmetrically. No evidence of edema. No clubbing. Imagin10/25/2017: Bilateral screening mammogram with 3D tomosynthesis was performed. The breast composition is heterogeneously dense which could obscure small breast masses, there is asymmetry with architectural distortion in the region of multiple surgical clips within the mid to deep upper lateral left breast with mild overlying skin thickening and retraction, the patient also appears to be status post left axillary reyna dissection and these findings are consistent with postoperative and postsurgical fibrosis/scarring. There are few scattered typical benign-appearing calcifications and no other significant changes since the prior study. BI-RADS Category 2. Laboratory Data: 10/16/2017: CBC and CMP were unremarkable. Assessment: Lilian Quach is a 52-year-old postmenopausal female diagnosed with pathologic stage IIA (pT1c N1a (sn) M0) grade 2 invasive ductal carcinoma (ER > 95%, AK 6%, HER-2 2+ on IHC and amplified on FISH) of the left breast status post lumpectomy and sentinel lymph node biopsy completed on 12/20/2016, and adjuvant chemotherapy consisting of TCH 6 cycles completed from 01/15/2017 - 05/01/2017. From 05/29/17 - 06/28/17 she received adjuvant radiation therapy consisting of 4256 cGy in 16 fractions directed to the left breast and low axilla followed by a boost consisting of 1000 cGy in 5 fractions directed to the lumpectomy cavity. She continues to take Herceptin every 3 weeks and we will complete this in December 2017 and she initiated tamoxifen in July 2017 and is planning to take for 10 years. Plan: Lilian Quach returns for a 5 month follow-up after completing adjuvant radiation therapy to the left breast and low axilla. Clinically she is doing very well and displays no evidence of toxicity from radiation therapy and has an excellent cosmetic outcome. She has no evidence of disease on exam. Annual mammography completed in September 2017 showed evidence for benign findings, BI-RADS 2. I recommend that she return for a mammogram in 1 year. She will continue Herceptin until mid December and then have the port removed. I recommended that she have breast exam completed every 3-4 months during the first year and that we alternate these exams between providers to reduce overlapping visits. She is planning to see surgery in December for port removal and will likely also have breast exam at that time. Health Maintenance: Recommended health well-balanced plant-based diet as well as persistent cardiovascular exercise program to maintain healthy weight and maximally reduce risk of disease recurrence. Recommended colonoscopy for colorectal cancer screening, she reports that she is aware of this and is going to schedule this when she sees surgery in December. Recommended routine gynecologic exam with Pap smear per screening recommendations. She is already undergoing periodic screening per her measurer machine. Recommended follow-up with PCP for any other medical problems. Herson Billings DO, [place], Department of Radiation Oncology [facility] 10/30/17 1041 <Electronically signed by Herson Billings DO> Date Herson Billings CC: Jerman Tam MD; Carissa Omalley MD Signed SCREENING MAMM (CAD), Observed: 10/25/2017 Status: F Source: [facility] 7:31 AM REPOSITORY [facility] Imaging Services [address] [place] [address] SCREENING MAMM (CAD), BILAT MR#: [id number] Acct: [id number] Name: LILIAN QUACH Rep #: [id number] : 1965 F 52 From: Darvin Low MD PCP: Gabrielle Nguyen DO Status: REG CLI Study: SCREENING MAMM (CAD), BILAT Date of Exam: 10/25/17 Exam# [id number] Ordering Dr: Giovanna Worley MD MAMMOGRAPHY - BILATERAL SCREENING 3-D JIMI SYNTHESIS REASON FOR EXAM: Female, 52 years old. Bilateral Screening 3-D tomosynthesis PERTINENT HISTORY: Personal history of left breast malignancy.. TECHNIQUE: 2-D mammograms and 3-D Jimi synthesis of the breast (s) were performed. CAD was performed. COMPARISON: October 12, 2016. FINDINGS: The breast composition is heterogeneously dense that can obscure small breast masses. There is asymmetry with architectural distortion in the region of multiple surgical clips within the mid to deep upper lateral left breast. There is mild overlying skin thickening and retraction. The patient also appears status post left axillary reyna dissection. These findings all appear most consistent with postoperative and postsurgical fibrosis/scarring. There are few, scattered, typically benign-appearing calcifications. There has been no significant change since the prior study. BI/SCREENING MAMM (CAD), BILAT IMPRESSION: No mammographic signs of malignancy. Routine yearly mammograms recommended. ASSESSMENT CATEGORY: BIRADS Category 2: Benign. A letter regarding these results will be sent to the patient by the facility within 30 days. FOLLOW UP RECOMMENDATION: Yearly follow up mammogram recommended. (A) Approximately 10% of breast cancers are not detected by mammography. A normal mammogram should not delay biopsy of a clinically suspicious abnormality. Electronically Signed: Darvin Low MD at 10:17 EDT , Service support , CC: Giovanna Worley MD; Gabrielle Nguyen DO Agency Development Manager: Signed ONCOLOGY VISIT REPORT Observed: 10/16/2017 Status: F Source: [facility] 9:30 AM REPOSITORY [facility] [place] [address] OFFICE VISIT Date of Service: 10/16/17 0924 MR#: [id number] Acct: [id number] Name: LIILAN QUACH Rep #: [id number] : 1965 From: Jerman Tam MD Age/Sex: 52/F Location: [facility] Status: Signed Subjective - Date of Service Date of Service:: 10/16/17 - Chief Complaint F/u for Herceptin therapy. - History of Present Illness Mrs. Lilian Quach is a very pleasant 52y.o.woman was found to have an abnormal mammogram in 08/2016. US of Left Breast on 10/18/2016 showed 1.4cm lesion in the 3 o'clock position. 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 She underwent left lumpectomy and sentinel node biopsy on 12/20/2016. Tumor size 15mm, [place] node 1/1 positive with macrometastasis. Pathology stage pT1c pN1-stage IIA. Echo 01/08/17 showed EF 60%. Initiated TC AND weekly Herceptin on 01/15/17. After the Neulasta on body injector deployed with cycle 2, developed epigastric pain which extend into retrosternal area and back. Echocardiogram done on 03/15/2017 showed EF 55%. She finished TC with weekly Herceptin on 05/14/2017. Began Herceptin 6mg/kg every 3 weeks on 05/21/17, intent to complete 1 year of therapy. Completed proposed course of XRT (4256 cGy in 16 fractions, 1000 cGy-boost in 5 fractions) to left breast and low axilla 05/29/17- 06/28/17 under the care of Dr. Billings. Echocardiogram on 06/04/2017 showed EF 60%. Started adjuvant Tamoxifen on 07/03/2017. Echocardiogram on 09/20/2017 showed EF 60%. Comes for maintenance adjuvant Herceptin C8. She feels well, hair is growing back. - Past Medical/Social History Past Medical History Past Medical History: Unknown Cancer: Breast cancer Past Surgical History Surgical: Mastectomy,Tubal ligation Other Surgical History: PARTIAL MASTECTOMY LEFT Family History Paternal Past Medical History: COPD Paternal History of Cancer Prostate cancer Maternal Past Medical History: Hyperlipidemia,Hypertension Maternal History of Cancer: Breast cancer Social History Social History: No changes Smoking Status Never smoker Review of Systems Constitutional:: Denies: Fever, Sweats, Weight loss, Appetite change, Chills Cardiovascular:: Denies: Chest pain, Palpitations, Dyspnea on exertion, Orthopnea, PND, Shortness of breath Respiratory: Denies: Cough, Hemoptysis, Shortness of Breath, Wheezing Gastrointestinal:: Denies: Abdominal pain, Nausea, Vomiting, Diarrhea, Constipation, Hematochezia Genitourinary: Denies: Dysuria, Hematuria, 15, Flank pain Musculoskeletal:: Denies: Back pain, Myalgia, Arthralgia Skin: Denies: Rash, Skin Changes, Wounds Neurological:: Denies: Headache, Dizziness, Visual changes, Tinnitus, Hearing loss Psychiatric: Denies: Anxiety, Depression, Homicidal Ideations, Suicidal Ideations Vital Signs Height 5 ft 7 in Weight: 86.772 kg Weight in Pounds 191.3 lbs BMI 30.7 Pulse Ox 96 - Physical Exam General: Alert, Oriented x3, No apparent distress, - - [place] HEENT: Atraumatic, PERRLA, EOMI, Normocephalic Oropharynx:: Dry mucosa Neck:: Supple, Trachea midline. Negative for: JVD, bilateral Cardiac:: Regular rate, Regular rhythm, Normal S1, Normal S2. Negative for: Murmur Lungs: Clear to auscultation, Excusion symmetrical. Negative for: Rhonchi, Wheezes Abdomen:: Bowel sounds x 4, Soft, Non-tender, Non-distended. Negative for: Hepatosplenomegaly Extremities:: Negative for: Cyanosis, Edema Neurological: Neuro grossly intact Skin:: Negative for: Lesions, Rash, Petechiae, Ecchymosis Psychiatric:: Appropriate affect, Euthymic Lymphatics:: Negative for: Cervical lymphadenopathy, Supraclavicular lymphadenopathy, Axillary lymphadenopathy Laboratory Data: Laboratory Tests WBC 3.8 L (4.4-11.0) K/mm3 RBC 3.47 L (4.2-5.4) M/mm3 Hgb 11.0 L (12.0-15.0) g/dl Assessment and Plan Left Breast Cancer stage IIA, ER/AK/Her2 positive, finished Carboplatin and Taxotere q 3 wks and Herceptin weekly x 18 wks. Now on Herceptin 6mg/kg q3 wks to complete 1 yr of adjuvant therapy since 05/21/2017. Tolerating therapy. Echocardiogram on 09/20/2017 shows EF 60%. Plan is to proceed with Herceptin 6mg/kg q 3 wks C8. Will continue to monitor EF, Echocardiogram due in November 2017. RTc 3 wks with CBC,CMP for Herceptin C9. Medications: Prescriptions This Visit Medication Instructions Recorded Primary Care Provider: Gabrielle Nguyen DO Referring Provider: Carissa Omalley - Problem List (1) Breast cancer, left breast Status: Chronic Qualifiers: Breast location: upper outer quadrant of breast Estrogen receptor status: positive Patient sex: female Qualified Code(s): C50.412 - Malignant neoplasm of upper-outer quadrant of left female breast; Z17.0 - Estrogen receptor positive status [ER+] (2) Chemotherapy management, encounter for Status: Acute Code Visit Office Visits / Consults: [id number] OV L5 Est 10/16/17 7446 <Electronically signed by Jerman Tam MD> Date Jerman Tam MD Cosigner Signature: Date (if applicable) CC: COMPREHENSIVE METABOLIC Collected: 10/16/2017 Status: F Source: [facility] 8:40 AM REPOSITORY Order Comment: Reason for Laboratory Test . TYPE CODE TESTS RESULT OUT OF RANGE REFERENCE UNITS LAB L501.0100 74-106 mg/dL Normal GLU 86 Result Comment: Please note revised GLUCOSE reference range effective 2017. LAB L501.1000 7-18 mg/dL Normal BUN 18 LAB L501.1100 0.55-1.02 mg/dL Normal CREAT,SERUM 0.70 Result Comment: The validity of the calculated GFR AND GFRAA in patients over 70 years has not been determined. Clinical correlation is essential. LAB L501.1110 >60 mL/min Normal EST GFR 93 Result Comment: Non- GFR Calc LAB L501.1115 >60 mL/min Normal EST GFR - AA 113 Result Comment: GFR Calc LAB L501.1255 ml/min Normal Estimated CRCL 89.34 LAB L501.1300 10-20 RATIO High BUN/CRE 25.9 LAB L501.1500 6.4-8. g/dL Normal 2 T PROT 7.0 LAB L501.1800 3.2-5. g/dL Normal 0 ALB 3.5 LAB L501.1950 2.2-4. g/dL Normal 2 GLOB 3.5 LAB L501.2000 0.9-2. RATIO Normal 4 A/G 1.0 LAB L501.2200 8.5-10 mg/dL Normal .1 CA 8.7 LAB L501.4100 15-37 U/L Normal AST 17 LAB L501.4305 45-117 U/L Normal ALK P 61 LAB L501.4405 13-56 U/L Normal ALT 17 LAB L501.4600 0.20-1 mg/dL Normal .00 T BILI 0.40 LAB L501.5300 136-14 mmol/L Normal 5 NA 144 LAB L501.5600 3.5-5. mmol/L Normal 1 K 4.1 LAB L501.5900 98-107 mmol/L High CL 108 LAB L501.6100 21.0-3 mmol/L Normal 2.0 CO2 27.0 LAB L501.6200 5-15 Normal GAP 9 Performed By: #### L500.4050 #### [facility] [address] [place], [address] CBC W/DIFF, AUTOMATED Collected: 10/16/2017 Status: F Source: [facility] 8:40 AM REPOSITORY Order Comment: Reason for Laboratory Test . TYPE CODE TESTS RESULT OUT OF RANGE REFERENCE UNITS LAB L100.1000 4.4-11.0 K/mm3 Low WBC 3.8 LAB L100.1200 4.2-5.4 M/mm3 Low RBC 3.47 LAB L100.1300 12.0-15.0 g/dl Low HGB 11.0 LAB L100.1400 37-47 % Low HCT 33.0 LAB L100.1500 81-99 fL Normal MCV 95.1 LAB L100.1600 27.0-32.0 pg Normal MCH 31.7 LAB L100.1700 32-36 g/gl Normal MCHC 33.3 LAB L100.1810 11.6-14.6 % Normal RDW CV 12.4 LAB L100.1820 35.1-43.9 fl Normal RDW SD 42.0 LAB L100.1900 150-450 K/mm3 Normal PLT 206 LAB L100.2000 6.2-12.0 fl Normal MPV 9.6 LAB L100.2100 47-70 % Normal NEUT% 59.5 LAB L100.2200 19-41 % Normal LY% 31.7 LAB L100.2300 0-10 % Normal MONO% 6.1 LAB L100.2400 0-5 % Normal EO% 1.9 LAB L100.2500 0-1 % Normal BASO% 0.8 LAB L100.2550 0.0-0.9 % Normal IM GRAN % 0.000 Result Comment: IG% - Immature Granulocytes (promyelocytes, myelocytes and metamyelocytes) > 1% indicates that a LEFT SHIFT is Present. LAB L100.2620 2.0-7.7 X10 3/uL Normal Absolute Neut 2.3 LAB L100.2720 0.83-4.51 X10 3/ul Normal Absolute Lymph 1.20 Performed By: #### L100.0100 #### [facility] [address] [place], [place] [address], [address] Observed: 09/26/2017 Status: F Source: [facility] CULTURE, URINE 11:40 AM REPOSITORY Urine Culture ORGANISM 1: Escherichia coli [place] Count >100,000 Escherichia coli: REACTION Amoxacillin/Clavulanic Acid $ <=2 S Ampicillin $ <=2 S Ampicillin/Sulbactam $ <=2 S Cefazolin $ <=4 S Cefepime $ <=1 S Ceftriaxone $ <=1 S Ciprofloxacin $ <=0.25 S ESBL - Ertapenim $$$ <=0.5 S Gentamicin $ <=1 S Imipenem *NF <=0.25 S Levofloxacin $ <=0.12 S Nitrofurantoin $ <=16 S Piperacillin/Tazobactam $$ <=4 S Tobramycin $ <=1 S Trimethoprim/Sulfametho $ <=20 S (NF) indicates non-formulary drug at [facility]. Approval by Infectious Disease Specialist required before non-formulary drugs may be ordered and/or dispensed. Performed By: #### M100.0650 #### [facility] [address] [place], [address] ONCOLOGY VISIT REPORT Observed: 09/24/2017 Status: F Source: [facility] 9:28 AM REPOSITORY [facility] [address] [place] [address] OFFICE VISIT Date of Service: 09/24/17 0917 MR#: [id number] Acct: [id number] Name: LILIAN QUACH Rep #: [id number] : 1965 From: Jerman Tam MD Age/Sex: 52/F Location: [facility]C Status: Signed Subjective - Date of Service Date of Service:: 09/24/17 - Chief Complaint F/u for Herceptin therapy. - History of Present Illness Mrs. Lilian Quach is a very pleasant 52y.o.woman was found to have an abnormal mammogram in 08/2016. US of Left Breast on 10/18/2016 showed 1.4cm lesion in the 3 o'clock position. 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 She underwent left lumpectomy and sentinel node biopsy on 12/20/2016. Tumor size 15mm, [place] node 1/1 positive with macrometastasis. Pathology stage pT1c pN1-stage IIA. Echo 01/08/17 showed EF 60%. Initiated TC AND weekly Herceptin on 01/15/17. After the Neulasta on body injector deployed with cycle 2, developed epigastric pain which extend into retrosternal area and back. Echocardiogram done on 03/15/2017 showed EF 55%. She finished TC with weekly Herceptin on 05/14/2017. Began Herceptin 6mg/kg every 3 weeks on 05/21/17, intent to complete 1 year of therapy. Completed proposed course of XRT (4256 cGy in 16 fractions, 1000 cGy-boost in 5 fractions) to left breast and low axilla 05/29/17- 06/28/17 under the care of Dr. Billings. Echocardiogram on 06/04/2017 showed EF 60%. Started adjuvant Tamoxifen on 07/03/2017. She repeat Echocardiogram on 09/20/2017. Comes for maintenance adjuvant Herceptin C7. She feels well, hair is growing back. - Past Medical/Social History Past Medical History Past Medical History: Unknown Cancer: Breast cancer Past Surgical History Surgical: Mastectomy,Tubal ligation Other Surgical History: PARTIAL MASTECTOMY LEFT Family History Paternal Past Medical History: COPD Paternal History of Cancer Prostate cancer Maternal Past Medical History: Hyperlipidemia,Hypertension Maternal History of Cancer: Breast cancer Social History Social History: No changes Smoking Status Never smoker Review of Systems Constitutional:: Denies: Fever, Sweats, Weight loss, Appetite change, Chills Cardiovascular:: Denies: Chest pain, Palpitations, Dyspnea on exertion, Orthopnea, PND, Shortness of breath Respiratory: Denies: Cough, Hemoptysis, Shortness of Breath, Wheezing Gastrointestinal:: Denies: Abdominal pain, Nausea, Vomiting, Diarrhea, Constipation, Hematochezia Genitourinary: Denies: Dysuria, Hematuria, 15, Flank pain Musculoskeletal:: Denies: Back pain, Myalgia, Arthralgia Skin: Denies: Rash, Skin Changes, Wounds Neurological:: Denies: Headache, Dizziness, Visual changes, Tinnitus, Hearing loss Psychiatric: Denies: Anxiety, Depression, Homicidal Ideations, Suicidal Ideations Vital Signs Height 5 ft 7 in Weight: 86.636 kg Weight in Pounds 191.0 lbs BMI 30.7 Pulse Ox 99 - Physical Exam General: - - [place]. HEENT: Atraumatic, PERRLA, EOMI, Normocephalic Oropharynx:: Dry mucosa Neck:: Supple, Trachea midline. Negative for: JVD, bilateral Cardiac:: Regular rate, Regular rhythm, Normal S1, Normal S2. Negative for: Murmur Lungs: Clear to auscultation, Excusion symmetrical. Negative for: Rhonchi, Wheezes Abdomen:: Bowel sounds x 4, Soft, Non-tender, Non-distended. Negative for: Hepatosplenomegaly Extremities:: Negative for: Cyanosis, Edema Neurological: Neuro grossly intact Skin:: Negative for: Lesions, Rash, Petechiae, Ecchymosis Psychiatric:: Appropriate affect, Euthymic Lymphatics:: Negative for: Cervical lymphadenopathy, Supraclavicular lymphadenopathy, Axillary lymphadenopathy Laboratory Data: Laboratory Tests WBC 4.5 (4.4-11.0) K/mm3 RBC 3.29 L (4.2-5.4) M/mm3 Hgb 10.8 L (12.0-15.0) g/dl Diagnostic Data: 09/20/2017 Echocardiogram EF60%. Assessment and Plan Left Breast Cancer stage IIA, ER/AK/Her2 positive, finished Carboplatin and Taxotere q 3 wks and Herceptin weekly x 18 wks. Now on Herceptin 6mg/kg q3 wks to complete 1 yr of adjuvant therapy since 05/21/2017. Tolerating therapy. Echocardiogram on 09/20/2017 shows EF 60%. Plan is to proceed with Herceptin 6mg/kg q 3 wks C7. Renew Tamoxifen. Will continue to monitor EF, Echocardiogram due in November 2017. RTc 3 wks with CBC,CMP for Herceptin C 8. Medications: Prescriptions This Visit Medication Instructions Recorded Primary Care Provider: Gabrielle Nguyen DO Referring Provider: Carissa Omalley - Problem List (1) Breast cancer, left breast Status: Chronic Qualifiers: Breast location: upper outer quadrant of breast Estrogen receptor status: positive Patient sex: female Qualified Code(s): C50.412 - Malignant neoplasm of upper-outer quadrant of left female breast; Z17.0 - Estrogen receptor positive status [ER+] (2) Chemotherapy management, encounter for Status: Acute Code Visit Office Visits / Consults: [id number] OV L5 Est 09/24/17 0928 <Electronically signed by Jerman Tam MD> Date Jerman Tam MD Cosigner Signature: Date (if applicable) CC: CBC W/DIFF, AUTOMATED Collected: 09/24/2017 Status: F Source: [facility] 8:44 AM REPOSITORY Order Comment: Reason for Laboratory Test . TYPE CODE TESTS RESULT OUT OF RANGE REFERENCE UNITS LAB L100.1000 4.4-11.0 K/mm3 Normal WBC 4.5 LAB L100.1200 4.2-5.4 M/mm3 Low RBC 3.29 LAB L100.1300 12.0-15.0 g/dl Low HGB 10.8 LAB L100.1400 37-47 % Low HCT 31.9 LAB L100.1500 81-99 fL Normal MCV 97.0 LAB L100.1600 27.0-32.0 pg High MCH 32.8 LAB L100.1700 32-36 g/gl Normal MCHC 33.9 LAB L100.1810 11.6-14.6 % Normal RDW CV 12.3 LAB L100.1820 35.1-43.9 fl Normal RDW SD 41.9 LAB L100.1900 150-450 K/mm3 Normal PLT 169 LAB L100.2000 6.2-12.0 fl Normal MPV 9.7 LAB L100.2100 47-70 % Normal NEUT% 59.8 LAB L100.2200 19-41 % Normal LY% 31.6 LAB L100.2300 0-10 % Normal MONO% 5.5 LAB L100.2400 0-5 % Normal EO% 2.2 LAB L100.2500 0-1 % Normal BASO% 0.7 LAB L100.2550 0.0-0.9 % Normal IM GRAN % 0.200 Result Comment: IG% - Immature Granulocytes (promyelocytes, myelocytes and metamyelocytes) > 1% indicates that a LEFT SHIFT is Present. LAB L100.2620 2.0-7.7 X10 3/uL Normal Absolute Neut 2.7 LAB L100.2720 0.83-4.51 X10 3/ul Normal Absolute Lymph 1.43 Performed By: #### L100.0100, L500.4050 #### [facility] [address] [place], [address] COMPREHENSIVE METABOLIC Collected: 09/24/2017 Status: F Source: [facility] 8:44 AM REPOSITORY Order Comment: Reason for Laboratory Test . TYPE CODE TESTS RESULT OUT OF RANGE REFERENCE UNITS LAB L501.0100 74-106 mg/dL Normal GLU 91 Result Comment: Please note revised GLUCOSE reference range effective 2017. LAB L501.1000 7-18 mg/dL High BUN 20 LAB L501.1100 0.55-1.02 mg/dL Normal CREAT,SERUM 0.69 Result Comment: The validity of the calculated GFR AND GFRAA in patients over 70 years has not been determined. Clinical correlation is essential. LAB L501.1110 >60 mL/min Normal EST GFR 95 Result Comment: Non- GFR Calc LAB L501.1115 >60 mL/min Normal EST GFR - AA 114 Result Comment: GFR Calc LAB L501.1255 ml/min Normal Estimated CRCL 90.64 LAB L501.1300 10-20 RATIO High BUN/CRE 29.1 LAB L501.1500 6.4-8. g/dL Normal 2 T PROT 6.4 LAB L501.1800 3.2-5. g/dL Normal 0 ALB 3.2 LAB L501.1950 2.2-4. g/dL Normal 2 GLOB 3.2 LAB L501.2000 0.9-2. RATIO Normal 4 A/G 1.0 LAB L501.2200 8.5-10 mg/dL Low .1 CA 7.9 LAB L501.4100 15-37 U/L Normal AST 16 LAB L501.4305 45-117 U/L Normal ALK P 63 LAB L501.4405 13-56 U/L Normal ALT 15 Result Comment: Please note revised ALT reference range effective 2017. LAB L501.4600 0.20-1.00 mg/dL Normal T BILI 0.40 LAB L501.5300 136-145 mmol/L Normal NA 143 LAB L501.5600 3.5-5.1 mmol/L Normal K 4.1 LAB L501.5900 98-107 mmol/L High CL 110 LAB L501.6100 21.0-32.0 mmol/L Normal CO2 27.0 LAB L501.6200 5-15 Normal GAP 6 Performed By: #### L100.0100, L500.4050 #### [facility] [address] [place], [address] ECHOCARDIOGRAM COMPLETE Observed: 09/20/2017 Status: F Source: [facility] 5:35 PM REPOSITORY [facility] Cardiovascular Services [address] [place] [address] Echo Complete 09/20/17 1358 MR#: [id number] Acct: [id number] Name: LILIAN QUACH Rep #: [id number] : 1965 52 From: Juan Rios MD Attending Dr: Jerman Tam MD Status: REG CLI Ordering Dr: Jerman Tam MD Date: 09/20/17 Location: [facility] Sex: F C Admitted: Reason For Study: breast cancer Procedure This was a 2D Doppler, Color Flow transthoracic echocardiogram. Exam performed in department. Left Ventricle Normal LV size. Left ventricular systolic function is normal. The estimated ejection fraction is 60 %. Transmitral and pulmonary venous doppler flow suggestive of impaired relaxation of left ventricle. Transmitral diastolic flow velocities suggest mild (stage 1) diastolic dysfunction (reversed pattern). No regional wall motion abnormalities noted. Right Ventricle Normal RV size. Normal systolic function. Atria Normal left atrium. Normal right atrium. Mitral Valve Normal mitral valve. Tricuspid Valve Normal tricuspid valve. Aortic Valve The aortic valve is not well visualized. Pulmonic Valve Normal pulmonic valve. Great Vessels Normal aortic root. The pulmonary artery is normal size. Normal inferior vena cava. Pericardium/Pleural No pericardial effusion. MMode/2D Measurements AND Calculations LVIDd: 4.7 cm IVSd: 0.91 cm Ao root diam: 2.9 cm LVIDs: 3.3 cm LVPWd: 0.83 cm LA dimension: 3.7 cm RVDd: 3.0 cm FS: 29.0 % LAV(MOD-bp): 39.3 ml LA A4 area: 15.0 cm2 RA A4 area: 11.1 cm2 LAV(MOD-bp) Indexed: 19.9 ml/m2 LAV(MOD-sp2): 40.9 ml LAV(MOD-sp4): 40.7 ml Time Measurements MV dec time: 0.18 sec Doppler Measurements AND Calculations MV E max victor manuel: 75.3 cm/sec Lat Peak E' Victor Manuel: 5.9 cm/sec Med Peak E' Victor Manuel: 9.1 cm/sec MV A max victor manuel: 87.3 cm/sec E/E' lat: 12.9 E/E' med: 8.3 MV E/A: 0.86 Ao V2 max: 118.3 cm/sec LV V1 max: 93.6 cm/sec PA V2 max: 83.3 cm/sec Ao max P.6 mmHg LV V1 max P.5 mmHg TR max victor manuel: 219.8 cm/sec TR max P.5 mmHg Interpretation Summary Normal LV size. Left ventricular systolic function is normal. The estimated ejection fraction is 60 %. Transmitral diastolic flow velocities suggest mild (stage 1) diastolic dysfunction (reversed pattern). Ordering Physician: Jerman Tam Referring Physician: Gabrielle Nguyen Performed By: Stella Blackwood, RDCS, RVT 09/20/17 1734 Date Juan Rios MD CC: Jerman Tam MD; Gabrielle Nguyen DO Date Dictated: 09/20/17 1358 Date Transcribed: 09/20/171733 Agency Development Manager: Signed CBC W/DIFF, AUTOMATED Collected: 09/03/2017 Status: F Source: [facility] 8:43 AM REPOSITORY Order Comment: Reason for Laboratory Test . TYPE CODE TESTS RESULT OUT OF RANGE REFERENCE UNITS LAB L100.1000 4.4-11.0 K/mm3 Low WBC 3.4 LAB L100.1200 4.2-5.4 M/mm3 Low RBC 3.38 LAB L100.1300 12.0-15.0 g/dl Low HGB 10.7 LAB L100.1400 37-47 % Low HCT 31.9 LAB L100.1500 81-99 fL Normal MCV 94.4 LAB L100.1600 27.0-32.0 pg Normal MCH 31.7 LAB L100.1700 32-36 g/gl Normal MCHC 33.5 LAB L100.1810 11.6-14.6 % Normal RDW CV 12.3 LAB L100.1820 35.1-43.9 fl Normal RDW SD 41.2 LAB L100.1900 150-450 K/mm3 Normal PLT 154 LAB L100.2000 6.2-12.0 fl Normal MPV 9.6 LAB L100.2100 47-70 % Normal NEUT% 54.9 LAB L100.2200 19-41 % Normal LY% 36.8 LAB L100.2300 0-10 % Normal MONO% 5.9 LAB L100.2400 0-5 % Normal EO% 2.1 LAB L100.2500 0-1 % Normal BASO% 0.3 LAB L100.2550 0.0-0.9 % Normal IM GRAN % 0.000 Result Comment: IG% - Immature Granulocytes (promyelocytes, myelocytes and metamyelocytes) > 1% indicates that a LEFT SHIFT is Present. LAB L100.2620 2.0-7.7 X10 3/uL Low Absolute Neut 1.9 LAB L100.2720 0.83-4.51 X10 3/ul Normal Absolute Lymph 1.24 Performed By: #### L100.0100 #### [facility] [address] [place], [address] COMPREHENSIVE METABOLIC Collected: 09/03/2017 Status: F Source: [facility] [place] 8:43 AM REPOSITORY Order Comment: Reason for Laboratory Test . TYPE CODE TESTS RESULT OUT OF RANGE REFERENCE UNITS LAB L501.0100 74-106 mg/dL Normal GLU 97 Result Comment: Please note revised GLUCOSE reference range effective 2017. LAB L501.1000 7-18 mg/dL Normal BUN 13 LAB L501.1100 0.55-1.02 mg/dL Normal CREAT,SERUM 0.68 Result Comment: The validity of the calculated GFR AND GFRAA in patients over 70 years has not been determined. Clinical correlation is essential. LAB L501.1110 >60 mL/min Normal EST GFR 95 Result Comment: Non- GFR Calc LAB L501.1115 >60 mL/min Normal EST GFR - AA 115 Result Comment: GFR Calc LAB L501.1255 ml/min Normal Estimated CRCL 91.97 LAB L501.1300 10-20 RATIO Normal BUN/CRE 19.0 LAB L501.1500 6.4-8. g/dL Normal 2 T PROT 6.6 LAB L501.1800 3.2-5. g/dL Normal 0 ALB 3.2 LAB L501.1950 2.2-4. g/dL Normal 2 GLOB 3.4 LAB L501.2000 0.9-2. RATIO Normal 4 A/G 0.9 LAB L501.2200 8.5-10 mg/dL Normal .1 CA 8.5 LAB L501.4100 15-37 U/L Normal AST 19 LAB L501.4305 45-117 U/L Normal ALK P 61 LAB L501.4405 13-56 U/L Normal ALT 17 Result Comment: Please note revised ALT reference range effective 2017. LAB L501.4600 0.20-1.00 mg/dL Normal T BILI 0.50 LAB L501.5300 136-145 mmol/L Normal NA 144 LAB L501.5600 3.5-5.1 mmol/L Normal K 4.0 LAB L501.5900 98-107 mmol/L High CL 108 LAB L501.6100 21.0-32.0 mmol/L Normal CO2 27.0 LAB L501.6200 5-15 Normal GAP 9 Performed By: #### L500.4050 #### [facility] [address] [place], [address] CONSULTATION Observed: 08/29/2017 Status: F Source: [facility] 3:05 PM REPOSITORY [facility] Medical Records Department [address] [place] [address] Consultation 05/10/17 1348 MR#: [id number] Acct: [id number] Name: LILIAN QUACH Rep #: [id number] : 1965 52 From: Herson Billings DO PCP: Gabrielle Nguyen DO Status: REG RCR Y Location: ONC Date of Service: 05/10/17 Referring Provider: Dr. Tam Diagnosis: Lilian Quach is a 52-year-old postmenopausal female diagnosed with pathologic stage IIA (pT1c N1a (sn) M0) grade 2 invasive ductal carcinoma (ER > 95%, AK 6%, HER-2 2+ on IHC and amplified on FISH) of the left breast status post lumpectomy and sentinel lymph node biopsy completed on 12/20/2016, and adjuvant chemotherapy consisting of TCH 6 cycles completed from 01/15/2017 - 05/01/2017. History of Present Illness: 10/12/2016: Bilateral screening mammography was completed and showed evidence of a 1.3 x 1.4 cm irregular nodule in the deep upper lateral portion of the left breast. Recommended ultrasound for further evaluation, BI-RADS 0. 10/18/2016: Left breast ultrasound was performed and confirmed the existence of a 1.4 x 0.9 cm lesion in the outer inferior quadrant of the left breast at the 3 o'clock position about 7 cm from the nipple. BI-RADS 4. 11/15/2016: Ultrasound-guided core biopsy of the left breast mass was performed. Pathology demonstrated grade 2 invasive ductal carcinoma (ER > 95%, AK 6%, HER-2 2+ on IHC and amplified on FISH) which measured 1 cm in greatest diameter. 12/20/2016: The patient underwent left breast lumpectomy and sentinel lymph node biopsy and pathology demonstrated a single focus of grade 2 invasive ductal carcinoma measuring 1.5 cm, margins negative (initial margin is less than 0.1 cm posteriorly but upon re-resection this is greater than 1 cm), no lymphovascular space invasion, 1 of one sentinel lymph node biopsy is positive with 2 foci of metastatic disease the largest being 0.5 cm and no extranodal extension is identified, pathologic stage pT1c N1a. From 01/15/2017 to 05/01/2017: Completed adjuvant chemotherapy consisting of Taxotere and carboplatin 6 cycles given concurrently with Herceptin. Radiation Treatment History: No pacemaker. No previous history of radiation therapy. No difficulty in positioning for radiation therapy. Interval History: Crystal Quach presents for for initial consultation. She reports doing well overall she completed her chemotherapy on 01 May and reports that she has recovered from the majority of her side effects and her energy has greatly improved. She denies any breast pain, fluid collections, lymphedema, fevers/chills, shoulder stiffness or difficulty with arm range of motion, nausea or vomiting, diarrhea/constipation, bone pain, or fatigue. She also denies having any headaches, ataxia, weakness/numbness, incoordination, or other problems at this time. 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 I have reviewed the medical, surgical, and other pertinent history in details and have updated medication and allergy information in the electronic medical record. Past Medical History Hx Genetic Disorder No Hx Heart Attack No Hx Hypertension No Hx Irregular Heartbeat No Hx Diabetes No Hx Stroke/TIA No Hx Heart Failure No Hx AIDS No Hx HIV No Hx Mental Disorder No Hx Kidney Disease No Hx Asthma No Hx Ulcer No Hx Arthritis No Hx Glaucoma No Hx Thyroid Disease No Hx Anemia No Hx Chronic Obstructive No Pulmonary Disease (COPD) Hx Tuberculosis No Hx Hepatitis No Hx Clotting Problems No Hx Cardiac Disorders No Hx Chronic Infections No Hx Osteoporosis No Hx Rheumatoid Arthritis No Hx Lupus No Hx Hypercholesterolemia No Gynecological History Age at first period: 11 Hx Age of Menopause 43 LMP: 05/02/08 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 Date of last PAP smear: September 2016 Hx Control Yes Hx Hormone Therapy Yes Obstetric History Number of pregnancies: 2 Number of children: 2 Have you ever breastfed in the No past? Breast Health Monthly breast self-exams Yes performed? Do you have regular clinical Yes breast examinations? Date of last mammogram: 09/30/16, routinely completed yearly mammograms Have you ever had an abnormal Yes, but no previous biopsies mammogram? Past Surgical History: Mastectomy Tubal Ligation PARTIAL MASTECTOMY LEFT Family History: Breast cancer was diagnosed in the patient's mother as well as 2 of the maternal aunts, she believes all were diagnosed after the age of 60. Home Medications Medication Instructions Recorded Dexamethasone 4 mg PO BID #30 tablet 01/04/17 Allergies No Known Allergies Allergy (Verified 05/01/17 08:31) Health Maintenance Do you regularly see your No primary care physician? Have you ever had a No colonoscopy? Review of Systems: A 12-point review of systems was completed and was negative except for what is noted in the HPI/Interval History and by the nurse. Height/Weight/BMI: Height: 5 ft 7 in Weight: 88.813 kg BMI: 30.7 Vital Signs Temp Pulse Resp BP Pulse Ox 97.6 F 92 114/81 97 05/10/17 11:00 05/10/17 11:00 05/10/17 11:00 05/10/17 11:00 Physical Exam: ECO KARNOFSKY SCORE: 100% CONSTITUTIONAL: Well-developed, well-nourished, and in no apparent distress. HEENT: Mucous membranes moist. No evidence of thrush or lesions within the visualized oropharynx or oral cavity. No trismus. Pupils are equal, round, and reactive to light and accommodation. Extraocular movements are intact. Sclerae are anicteric. NECK: Supple,with no thyromegaly, and non-tender. Trachea midline. No cervical or supraclavicular adenopathy noted. CARDIAC: Regular rate and rhythm. Normal S1, S2. No murmurs, rubs, or gallops. PULMONARY/CHEST: Lungs are clear to auscultation and percussion bilaterally. No wheezes, rhonchi, or crackles noted. No increased work of breathing. ABDOMINAL: Abdomen soft, non-tender, non-distended. No hepatomegaly. Normoactive bowel sounds in all four quadrants. No guarding, rebound. BACK: Straight and aligned. No CVA tenderness. Axial skeleton non-tender to percussion. EXTREMITIES: Full range of motion in all four extremities, with normal strength equally and symmetrically. No evidence of edema. No clubbing. BREAST: The bilateral breasts were examined in the seated and supine positions. Breasts appear fairly symmetric. In the left breast there is a lumpectomy scar measuring a about 3 cm at the 3 o'clock position. Scars well-healed and there is no evidence of dehiscence or infection, there is no evidence of seroma or fluid collection. In the left axilla there is a small 1-2 cm scar from the lymph node excision which is also well-healed without evidence of infection or fluid collection. There are no apparent masses or lesions noted in either breast or axilla. SKIN: Skin is warm and dry. No rashes or lesions evident. NEUROLOGICAL EXAM: Alert and oriented x 3. Cranial nerves II through XII are grossly intact. No focal neurological deficit. Speech is fluent. There is no upper or lower extremity sensory deficit or motor deficit. Muscle strength is 5/5 in all muscle groups. Gait and posture are steady. There are no abnormal cerebellar signs. PSYCHIATRIC: Appropriate mood and affect for the clinical situation. Imaging: As per HPI Other Laboratory Data: Laboratory Tests WBC 4.6 Hgb 10.7 L BUN 16 Creatinine 0.71 Assessment: Lilian Quach is a 52-year-old postmenopausal female diagnosed with pathologic stage IIA (pT1c N1a (sn) M0) grade 2 invasive ductal carcinoma (ER > 95%, AK 6%, HER-2 2+ on IHC and amplified on FISH) of the left breast status post lumpectomy and sentinel lymph node biopsy completed on 12/20/2016, and adjuvant chemotherapy consisting of TCH 6 cycles completed from 01/15/2017 - 05/01/2017. Plan: I had a detailed discussion with the patient regarding the diagnosis of stage II breast cancer and various treatment options that are available to her. I discussed with her that would be standard of care to deliver radiation therapy to the breast after lumpectomy is completed for invasive disease as she does not fit qualifications for patients who could potentially avoid radiation therapy. I also discussed that there is some lack of agreement regarding the management of patients who have 1-3 lymph nodes that are positive on sentinel lymph node biopsy. I reviewed that Z11 trial suggested that patients can be appropriately treated with whole breast radiation therapy with or without high tangents covering lymph node levels 1 and 2. I further discussed the more recent in MA 20 and EORTC trials that suggest improvements in local regional recurrence disease-free survival and metastatic disease free survival when comprehensive reyna radiation is included in the management in patients with 1-3 positive nodes or high-risk node negative patients. I do believe that it is clear that the Z11 trial enrolled lower risk patients than both the MA 20 and EORTC trials and that this patient aligns much better with the Z11 patients. She is 52 years old, has grade 2 disease that is ER positive and measures 1.5 cm, no LVSI, has 1 small sentinel lymph node at 5 mm without DANIEL that was clinically node negative. This matches very well with the Z11 enrollment criteria and is lower risk than the typical MA 20 patient. Therefore I do believe it is reasonable that whole breast radiation therapy with high tangents would achieve very high rates of local regional control and that the addition of supraclavicular and internal mammary lymph nodes would likely only add unnecessary toxicity with lower chances for benefit. I would opt for high tangents in this case given that only one sentinel lymph node was removed and some of the confusion from the analysis of the treatment balbuena from Z11. I discussed that I would like to pursue radiation therapy in the prone position due to her anatomy and the ability to help avoid cardiac dose. In the event that this positioning is not feasible I would treat her supine potentially with deep inspiration breath hold. I discussed the risks, benefits, and alternatives to radiation therapy and all questions and concerns were answered to the best of my ability. I explained the logistics of radiation therapy. In particular I discussed that the radiation proceeds over several weeks and is delivered with daily fractionation. The process of planning radiation therapy was also discussed including the need for CT simulation, placement of tattoos or other marking, completion of the CT scan, and treatment planning including a verification simulation prior to initiation of treatment. In some this would take in general a couple of weeks. I then discussed the possibility of acute side effects from radiation which would include but are not limited to: fatigue, skin irritation including desquamation particularly along skin folds, breast pain or discomfort, and breast swelling. The long- term risks include, but are not limited to: residual hyperpigmentation or hypopigmentation (10%); skin telangectasias; radiation pneumonitis (<0.5%); lung scarring/fibrosis; breast fibrosis and change in breast contour with a 15-20% risk of poor cosmetic outcome; radiation- induced heart disease, particularly for left-sided breast cancers; shoulder stiffness or reduced ROM; lymphedema (1-2% increased risk above surgical risk); rib fracture (<1%); remote- risk of radiation-induced malignancy. At the end of the discussion, the patient had many questions all of which were thoroughly answered. Informed consent was signed and placed in the medical record. CT simulation has been scheduled for 05/16/2017. Thank you for allowing me to participate in the management and care of your patient. If I may answer any questions in the interim, please do not hesitate to contact me at any time. Herson Billings DO, MS [place], Department of Radiation Oncology [facility] 05/10/17 1423 <Electronically signed by Herson Billings DO> Date Herson Billings DO Cosigner Signature (if applicable): Date CC: Jerman Tam MD; Gabrielle Nguyen DO Signed ONCOLOGY FOLLOW-UP Observed: 08/29/2017 Status: F Source: [facility] VISIT 3:05 PM REPOSITORY [facility] Medical Records Department [address] [place] [address] Oncology Follow-Up Visit 07/24/17 1055 MR#: [id number] Acct: [id number] Name: LILIAN QUACH Rep #: [id number] : 1965 52 From: Herson Billings DO PCP: Gabrielle Nguyen DO Status: REG RCR Y Location: [facility] Date of Service: 07/24/17 Last Clinic Visit: Diagnosis: Lilian Quach is a 52-year-old postmenopausal female diagnosed with pathologic stage IIA (pT1c N1a (sn) M0) grade 2 invasive ductal carcinoma (ER > 95%, AK 6%, HER-2 2+ on IHC and amplified on FISH) of the left breast status post lumpectomy and sentinel lymph node biopsy completed on 12/20/2016, and adjuvant chemotherapy consisting of TCH 6 cycles completed from 01/15/2017 - 05/01/2017. History of Present Illness: 10/12/2016: Bilateral screening mammography was completed and showed evidence of a 1.3 x 1.4 cm irregular nodule in the deep upper lateral portion of the left breast. Recommended ultrasound for further evaluation, BI-RADS 0. 10/18/2016: Left breast ultrasound was performed and confirmed the existence of a 1.4 x 0.9 cm lesion in the outer inferior quadrant of the left breast at the 3 o'clock position about 7 cm from the nipple. BI-RADS 4. 11/15/2016: Ultrasound-guided core biopsy of the left breast mass was performed. Pathology demonstrated grade 2 invasive ductal carcinoma (ER > 95%, AK 6%, HER-2 2+ on IHC and amplified on FISH) which measured 1 cm in greatest diameter. 12/20/2016: The patient underwent left breast lumpectomy and sentinel lymph node biopsy and pathology demonstrated a single focus of grade 2 invasive ductal carcinoma measuring 1.5 cm, margins negative (initial margin is less than 0.1 cm posteriorly but upon re-resection this is greater than 1 cm), no lymphovascular space invasion, 1 of one sentinel lymph node biopsy is positive with 2 foci of metastatic disease the largest being 0.5 cm and no extranodal extension is identified, pathologic stage pT1c N1a. From 01/15/2017 to 05/01/2017: Completed adjuvant chemotherapy consisting of Taxotere and carboplatin 6 cycles given concurrently with Herceptin. From 05/29/17 06/28/17: received adjuvant radiation therapy consisting of 4256 cGy in 16 fractions directed to the left breast and low axilla followed by a boost consisting of 1000 cGy in 5 fractions directed to the lumpectomy cavity. 07/23/17: Received Herceptin Radiation Treatment History: 1) From 05/29/17 06/28/17: received adjuvant radiation therapy consisting of 4256 cGy in 16 fractions directed to the left breast and low axilla followed by a boost consisting of 1000 cGy in 5 fractions directed to the lumpectomy cavity. No pacemaker, no history of collagen vascular disease. Interval History: Lilian Quach returns for routine follow-up one month after completing adjuvant radiation therapy to the left breast and low axilla. She reports doing very well overall and denies having much increase in skin irritation following completion of the radiation. She denies new breast nodules, skin erythema/desquamation, breast pain, breast or axilla/arm swelling, nipple discharge, reduced arm range of motion, fatigue, bone pain, headaches, or nausea/vomiting. She reports tolerating Herceptin well and denies chest pain, shortness of breath, cough. She initiated tamoxifen about 2 weeks ago and reports tolerating this well also without any notable toxicities. She is working full-time without difficulty and can complete all ADLs without any difficulty. I have reviewed the medical, surgical, and other pertinent history in details and have updated medication and allergy information in the electronic medical record. Health Maintenance Do you regularly see your No primary care physician? Have you ever had a No colonoscopy? Review of Systems: A 12-point review of systems was completed and was negative except for what is noted in the HPI/Interval History and by the nurse. Height/Weight/BMI: Height: 5 ft 7 in Weight: 87.543 kg BMI: 30.7 Vital Signs Height 5 ft 7 in Weight: 87.543 kg Weight in Pounds 193.0 lbs BMI 30.7 Pulse Ox 97 Physical Exam: ECO KARNOFSKY SCORE: 100% CONSTITUTIONAL: Well-developed, well-nourished, and in no apparent distress. NECK: Supple,with no thyromegaly, and non-tender. Trachea midline. No cervical or supraclavicular adenopathy noted. CARDIAC: Regular rate and rhythm. Normal S1, S2. No murmurs, rubs, or gallops. PULMONARY/CHEST: Lungs are clear to auscultation and percussion bilaterally. No wheezes, rhonchi, or crackles noted. No increased work of breathing. ABDOMINAL: Abdomen soft, non-tender, non-distended. No hepatomegaly. Normoactive bowel sounds in all four quadrants. No guarding, rebound. BREAST: Bilateral breasts are examined in the seated and supine positions. There is mild asymmetry with some decreased size of the left breast as compared to the right. There is a well-healed lumpectomy scar apparent in the outer portion of the left breast around 3 o'clock position with a very small amount of fibrous tissue beneath. There is hyperpigmentation involving the skin of the nipple areolar complex in a small area in the inferior portion of the breast but no desquamation, rash, or erythema. There are no palpable masses in either breast or axilla and there is normal arm range of motion. BACK: Straight and aligned. No CVA tenderness. Axial skeleton non-tender to percussion. EXTREMITIES: Full range of motion in all four extremities, with normal strength equally and symmetrically. No evidence of edema. No clubbing. PSYCHIATRIC: Appropriate mood and affect for the clinical situation. Imaging: No new imaging to review Laboratory Data: Laboratory Tests WBC 3.7 L Hgb 10.9 L Plt Count 156 BUN 15 Creatinine 0.75 Assessment: Lilian Quach is a 52-year-old postmenopausal female diagnosed with pathologic stage IIA (pT1c N1a (sn) M0) grade 2 invasive ductal carcinoma (ER > 95%, AK 6%, HER-2 2+ on IHC and amplified on FISH) of the left breast status post lumpectomy and sentinel lymph node biopsy completed on 12/20/2016, and adjuvant chemotherapy consisting of TCH 6 cycles completed from 01/15/2017 - 05/01/2017. She continues to take Herceptin every 3 weeks and we will complete this in November 2017. She also initiated tamoxifen in the last 2 weeks and is doing well. Plan: Lilian Quach returns for a one-month follow-up after completing adjuvant radiation therapy to the left breast and low axilla. Clinically she is doing very well and other than some left breast skin hyperpigmentation displays no evidence of toxicity from radiation therapy. She has no evidence of disease on exam. I recommended that she complete bilateral mammogram in September which was a year after her last mammogram. She will continue Herceptin through November and then have the port removed. I recommended that she have breast exam completed every 3-4 months during the first year and that we alternate these exams between providers to reduce overlapping visits. I will plan to see her in September following her next mammogram and she was instructed to call with any further questions or concerns in the interim. Health Maintenance: Recommended health well-balanced diet as well as persistent cardiovascular exercise program to maintain healthy weight and maximally reduce risk of disease recurrence. Recommended colonoscopy for colorectal cancer screening, she reports that she is aware of this and is going to schedule this in the near future. Recommended routine gynecologic exam with Pap smear per screening recommendations. She is already undergoing periodic screening per her measurer machine. Recommended follow-up with PCP for any other medical problems. Herson Billings DO, MS [place], Department of Radiation Oncology [facility] 07/24/17 1114 <Electronically signed by Herson Billings DO> Date Herson Billings DO CC: Signed CBC W/DIFF, AUTOMATED Collected: 08/13/2017 Status: F Source: [facility] 8:39 AM REPOSITORY Order Comment: Reason for Laboratory Test CHEMO TYPE CODE TESTS RESULT OUT OF RANGE REFERENCE UNITS LAB L100.1000 4.4-11.0 K/mm3 Normal WBC 4.4 LAB L100.1200 4.2-5.4 M/mm3 Low RBC 3.34 LAB L100.1300 12.0-15.0 g/dl Low HGB 10.7 LAB L100.1400 37-47 % Low HCT 32.0 LAB L100.1500 81-99 fL Normal MCV 95.8 LAB L100.1600 27.0-32.0 pg Normal MCH 32.0 LAB L100.1700 32-36 g/gl Normal MCHC 33.4 LAB L100.1810 11.6-14.6 % Normal RDW CV 11.8 LAB L100.1820 35.1-43.9 fl Normal RDW SD 41.0 LAB L100.1900 150-450 K/mm3 Normal PLT 222 LAB L100.2000 6.2-12.0 fl Normal MPV 9.2 LAB L100.2100 47-70 % Normal NEUT% 68.2 LAB L100.2200 19-41 % Normal LY% 24.7 LAB L100.2300 0-10 % Normal MONO% 4.8 LAB L100.2400 0-5 % Normal EO% 1.8 LAB L100.2500 0-1 % Normal BASO% 0.5 LAB L100.2550 0.0-0.9 % Normal IM GRAN % 0.000 Result Comment: IG% - Immature Granulocytes (promyelocytes, myelocytes and metamyelocytes) > 1% indicates that a LEFT SHIFT is Present. LAB L100.2620 2.0-7.7 X10 3/uL Normal Absolute Neut 3.0 LAB L100.2720 0.83-4.51 X10 3/ul Normal Absolute Lymph 1.08 Performed By: #### L100.0100, L500.4050 #### [facility] [address] [place], [place], [address] COMPREHENSIVE METABOLIC Collected: 08/13/2017 Status: F Source: [facility] 8:39 AM REPOSITORY Order Comment: Reason for Laboratory Test CHEMO TYPE CODE TESTS RESULT OUT OF RANGE REFERENCE UNITS LAB L501.0100 74-106 mg/dL Normal GLU 83 Result Comment: Please note revised GLUCOSE reference range effective 2017. LAB L501.1000 7-18 mg/dL Normal BUN 18 LAB L501.1100 0.55-1.02 mg/dL Normal CREAT,SERUM 0.85 Result Comment: The validity of the calculated GFR AND GFRAA in patients over 70 years has not been determined. Clinical correlation is essential. LAB L501.1110 >60 mL/min Normal EST GFR 74 Result Comment: Non- GFR Calc LAB L501.1115 >60 mL/min Normal EST GFR - AA 90 Result Comment: GFR Calc LAB L501.1255 ml/min Normal Estimated CRCL 73.58 LAB L501.1300 10-20 RATIO High BUN/CRE 21.3 LAB L501.1500 6.4-8. g/dL Normal 2 T PROT 7.0 LAB L501.1800 3.2-5. g/dL Normal 0 ALB 3.2 LAB L501.1950 2.2-4. g/dL Normal 2 GLOB 3.8 LAB L501.2000 0.9-2. RATIO Low 4 A/G 0.8 LAB L501.2200 8.5-10 mg/dL Normal .1 CA 8.5 LAB L501.4100 15-37 U/L Low AST 13 LAB L501.4305 45-117 U/L Normal ALK P 63 LAB L501.4405 13-56 U/L Normal ALT 16 Result Comment: Please note revised ALT reference range effective 2017. LAB L501.4600 0.20-1.00 mg/dL Normal T BILI 0.70 LAB L501.5300 136-145 mmol/L Normal NA 143 LAB L501.5600 3.5-5.1 mmol/L Normal K 3.9 LAB L501.5900 98-107 mmol/L High CL 109 LAB L501.6100 21.0-32.0 mmol/L Normal CO2 25.0 LAB L501.6200 5-15 Normal GAP 9 Performed By: #### L100.0100, L500.4050 #### [facility] [address] [place], [address] ONCOLOGY FOLLOW-UP Observed: 07/24/2017 Status: F Source: [facility] 11:14 AM REPOSITORY [facility] Medical Records Department [address] [place] [address] Oncology Follow-Up Visit 07/24/17 1055 MR#: [id number] Acct: [id number] Name: LILIAN QUACH Rep #: [id number] : 1965 52 From: Herson Billings DO PCP: Gabrielle Nguyen DO Status: REG RCR Y Location: [facility] Date of Service: 07/24/17 Last Clinic Visit: Diagnosis: Lilian Quach is a 52-year-old postmenopausal female diagnosed with pathologic stage IIA (pT1c N1a (sn) M0) grade 2 invasive ductal carcinoma (ER > 95%, AK 6%, HER-2 2+ on IHC and amplified on FISH) of the left breast status post lumpectomy and sentinel lymph node biopsy completed on 12/20/2016, and adjuvant chemotherapy consisting of TCH 6 cycles completed from 01/15/2017 - 05/01/2017. History of Present Illness: 10/12/2016: Bilateral screening mammography was completed and showed evidence of a 1.3 x 1.4 cm irregular nodule in the deep upper lateral portion of the left breast. Recommended ultrasound for further evaluation, BI-RADS 0. 10/18/2016: Left breast ultrasound was performed and confirmed the existence of a 1.4 x 0.9 cm lesion in the outer inferior quadrant of the left breast at the 3 o'clock position about 7 cm from the nipple. BI-RADS 4. 11/15/2016: Ultrasound-guided core biopsy of the left breast mass was performed. Pathology demonstrated grade 2 invasive ductal carcinoma (ER > 95%, AK 6%, HER-2 2+ on IHC and amplified on FISH) which measured 1 cm in greatest diameter. 12/20/2016: The patient underwent left breast lumpectomy and sentinel lymph node biopsy and pathology demonstrated a single focus of grade 2 invasive ductal carcinoma measuring 1.5 cm, margins negative (initial margin is less than 0.1 cm posteriorly but upon re-resection this is greater than 1 cm), no lymphovascular space invasion, 1 of one sentinel lymph node biopsy is positive with 2 foci of metastatic disease the largest being 0.5 cm and no extranodal extension is identified, pathologic stage pT1c N1a. From 01/15/2017 to 05/01/2017: Completed adjuvant chemotherapy consisting of Taxotere and carboplatin 6 cycles given concurrently with Herceptin. From 05/29/17 06/28/17: received adjuvant radiation therapy consisting of 4256 cGy in 16 fractions directed to the left breast and low axilla followed by a boost consisting of 1000 cGy in 5 fractions directed to the lumpectomy cavity. 07/23/17: Received Herceptin Radiation Treatment History: 1) From 05/29/17 06/28/17: received adjuvant radiation therapy consisting of 4256 cGy in 16 fractions directed to the left breast and low axilla followed by a boost consisting of 1000 cGy in 5 fractions directed to the lumpectomy cavity. No pacemaker, no history of collagen vascular disease. Interval History: Lilian Quach returns for routine follow-up one month after completing adjuvant radiation therapy to the left breast and low axilla. She reports doing very well overall and denies having much increase in skin irritation following completion of the radiation. She denies new breast nodules, skin erythema/desquamation, breast pain, breast or axilla/arm swelling, nipple discharge, reduced arm range of motion, fatigue, bone pain, headaches, or nausea/vomiting. She reports tolerating Herceptin well and denies chest pain, shortness of breath, cough. She initiated tamoxifen about 2 weeks ago and reports tolerating this well also without any notable toxicities. She is working full-time without difficulty and can complete all ADLs without any difficulty. I have reviewed the medical, surgical, and other pertinent history in details and have updated medication and allergy information in the electronic medical record. Health Maintenance Do you regularly see your No primary care physician? Have you ever had a No colonoscopy? Review of Systems: A 12-point review of systems was completed and was negative except for what is noted in the HPI/Interval History and by the nurse. Height/Weight/BMI: Height: 5 ft 7 in Weight: 87.543 kg BMI: 30.7 Vital Signs Height 5 ft 7 in Weight: 87.543 kg Weight in Pounds 193.0 lbs BMI 30.7 Pulse Ox 97 Physical Exam: ECO KARNOFSKY SCORE: 100% CONSTITUTIONAL: Well-developed, well-nourished, and in no apparent distress. NECK: Supple,with no thyromegaly, and non-tender. Trachea midline. No cervical or supraclavicular adenopathy noted. CARDIAC: Regular rate and rhythm. Normal S1, S2. No murmurs, rubs, or gallops. PULMONARY/CHEST: Lungs are clear to auscultation and percussion bilaterally. No wheezes, rhonchi, or crackles noted. No increased work of breathing. ABDOMINAL: Abdomen soft, non-tender, non-distended. No hepatomegaly. Normoactive bowel sounds in all four quadrants. No guarding, rebound. BREAST: Bilateral breasts are examined in the seated and supine positions. There is mild asymmetry with some decreased size of the left breast as compared to the right. There is a well-healed lumpectomy scar apparent in the outer portion of the left breast around 3 o'clock position with a very small amount of fibrous tissue beneath. There is hyperpigmentation involving the skin of the nipple areolar complex in a small area in the inferior portion of the breast but no desquamation, rash, or erythema. There are no palpable masses in either breast or axilla and there is normal arm range of motion. BACK: Straight and aligned. No CVA tenderness. Axial skeleton non-tender to percussion. EXTREMITIES: Full range of motion in all four extremities, with normal strength equally and symmetrically. No evidence of edema. No clubbing. PSYCHIATRIC: Appropriate mood and affect for the clinical situation. Imaging: No new imaging to review Laboratory Data: Laboratory Tests WBC 3.7 L Hgb 10.9 L Plt Count 156 BUN 15 Creatinine 0.75 Assessment: Lilian Quach is a 52-year-old postmenopausal female diagnosed with pathologic stage IIA (pT1c N1a (sn) M0) grade 2 invasive ductal carcinoma (ER > 95%, AK 6%, HER-2 2+ on IHC and amplified on FISH) of the left breast status post lumpectomy and sentinel lymph node biopsy completed on 12/20/2016, and adjuvant chemotherapy consisting of TCH 6 cycles completed from 01/15/2017 - 05/01/2017. She continues to take Herceptin every 3 weeks and we will complete this in November 2017. She also initiated tamoxifen in the last 2 weeks and is doing well. Plan: Lilian Quach returns for a one-month follow-up after completing adjuvant radiation therapy to the left breast and low axilla. Clinically she is doing very well and other than some left breast skin hyperpigmentation displays no evidence of toxicity from radiation therapy. She has no evidence of disease on exam. I recommended that she complete bilateral mammogram in September which was a year after her last mammogram. She will continue Herceptin through November and then have the port removed. I recommended that she have breast exam completed every 3-4 months during the first year and that we alternate these exams between providers to reduce overlapping visits. I will plan to see her in September following her next mammogram and she was instructed to call with any further questions or concerns in the interim. Health Maintenance: Recommended health well-balanced diet as well as persistent cardiovascular exercise program to maintain healthy weight and maximally reduce risk of disease recurrence. Recommended colonoscopy for colorectal cancer screening, she reports that she is aware of this and is going to schedule this in the near future. Recommended routine gynecologic exam with Pap smear per screening recommendations. She is already undergoing periodic screening per her measurer machine. Recommended follow-up with PCP for any other medical problems. Herson Billings DO, MS [place], Department of Radiation Oncology [facility] 07/24/17 1111 <Electronically signed by Herson Billings DO> Date Herson Billings DO CC: Signed CBC W/DIFF, AUTOMATED Collected: 07/23/2017 Status: F Source: [facility] 8:39 AM REPOSITORY Order Comment: Reason for Laboratory Test . TYPE CODE TESTS RESULT OUT OF RANGE REFERENCE UNITS LAB L100.1000 4.4-11.0 K/mm3 Low WBC 3.7 LAB L100.1200 4.2-5.4 M/mm3 Low RBC 3.29 LAB L100.1300 12.0-15.0 g/dl Low HGB 10.9 LAB L100.1400 37-47 % Low HCT 31.8 LAB L100.1500 81-99 fL Normal MCV 96.7 LAB L100.1600 27.0-32.0 pg High MCH 33.1 LAB L100.1700 32-36 g/gl Normal MCHC 34.3 LAB L100.1810 11.6-14.6 % Low RDW CV 11.5 LAB L100.1820 35.1-43.9 fl Normal RDW SD 40.9 LAB L100.1900 150-450 K/mm3 Normal PLT 156 LAB L100.2000 6.2-12.0 fl Normal MPV 9.5 LAB L100.2100 47-70 % Normal NEUT% 61.8 LAB L100.2200 19-41 % Normal LY% 29.2 LAB L100.2300 0-10 % Normal MONO% 7.1 LAB L100.2400 0-5 % Normal EO% 1.6 LAB L100.2500 0-1 % Normal BASO% 0.3 LAB L100.2550 0.0-0.9 % Normal IM GRAN % 0.000 Result Comment: IG% - Immature Granulocytes (promyelocytes, myelocytes and metamyelocytes) > 1% indicates that a LEFT SHIFT is Present. LAB L100.2620 2.0-7.7 X10 3/uL Normal Absolute Neut 2.3 LAB L100.2720 0.83-4.51 X10 3/ul Normal Absolute Lymph 1.07 Performed By: #### L100.0100 #### [facility] [address] [place], [address] COMPREHENSIVE METABOLIC Collected: 07/23/2017 Status: F Source: [facility] 8:39 AM REPOSITORY Order Comment: Reason for Laboratory Test . TYPE CODE TESTS RESULT OUT OF RANGE REFERENCE UNITS LAB L501.0100 70-110 mg/dL Normal GLU 110 Result Comment: Fasting Glucose result from 110 to <126 mg/dL suggests IMPAIRED HOMEOSTASIS per A.D.A. criteria. LAB L501.1000 7-18 mg/dL Normal BUN 15 LAB L501.1100 0.55-1.02 mg/dL Normal CREAT,SERUM 0.75 Result Comment: The validity of the calculated GFR AND GFRAA in patients over 70 years has not been determined. Clinical correlation is essential. LAB L501.1110 >60 mL/min Normal EST GFR 85 Result Comment: Non- GFR Calc LAB L501.1115 >60 mL/min Normal EST GFR - AA 103 Result Comment: GFR Calc LAB L501.1255 ml/min Normal Estimated CRCL 83.39 LAB L501.1300 10-20 RATIO Normal BUN/CRE 20.0 LAB L501.1500 6.4-8. g/dL Normal 2 T PROT 6.7 LAB L501.1800 3.4-5. g/dL Normal 0 ALB 3.5 Result Comment: Please note revised Albumin AND Globulin reference range effective 2017. LAB L501.1950 2.2-4.2 g/dL Normal GLOB 3.2 LAB L501.2000 0.9-2.4 RATIO Normal A/G 1.1 LAB L501.2200 8.5-10.1 mg/dL Low CA 8.4 LAB L501.4100 15-37 U/L Normal AST 15 LAB L501.4305 45-117 U/L Normal ALK P 62 LAB L501.4405 12-78 U/L Normal ALT 18 LAB L501.4600 0.20-1.00 mg/dL Normal T BILI 0.70 LAB L501.5300 136-145 mmol/L Normal NA 144 LAB L501.5600 3.5-5.1 mmol/L Normal K 3.9 LAB L501.5900 98-107 mmol/L Normal CL 107 LAB L501.6100 21.0-32.0 mmol/L Normal CO2 27.0 LAB L501.6200 5-15 Normal GAP 10 Performed By: #### L500.4050 #### [facility] [place], [address] SURGERY VISIT REPORT Observed: 07/20/2017 Status: F Source: [facility] 9:51 AM REPOSITORY [facility] [address] [place] [address] [address] [place] [id number] OFFICE VISIT Date of Service: 07/20/17 MR#: [id number] Acct: [id number] Name: LILIAN QUACH Rep #: [id number] : 1965 Provider: Carissa Omalley MD Age/Sex: 52/F Location: [facility] Status: Signed with Addenda ADDENDUM by Carissa Omalley MD on 07/20/17 at 0951 Addendum entered and electronically signed by Carissa Omalley MD 07/20/17 09:51: VS: 77 18 122/84 Intake Visit Reasons: 6 month f/u Allergies No Known Allergies Allergy (Verified 07/20/17 08:38) Medications Tamoxifen Citrate 20 mg PO DAILY #30 tab 07/03/17 [Rx Confirmed 07/20/17] Assessment AND Plan Problems 1. Malignant neoplasm of upper-outer quadrant of left breast in female, estrogen receptor positive C50.412 Plan - Carissa Omalley MD Patient will continue her Herceptin per oncology until November 2017. Discussed with patient to have her regular screening mammogram in about 6 months. Discussed with patient that when she is ready to have her port removed we can do so in office. Patient had no further questions or concerns at this time. Will follow up in about 6 months or when patient needs her port removed. Carissa Omalley M.D. Pager: [phone] [facility] [address], [address] [place] [address] Office: [phone] Plan Detail Follow Up 6 Months 07/20/17 0980 <Electronically signed by Carissa Omalley MD> Date Carissa Omalley MD cc: Giovanna Worley MD; Gabrielle Nguyen DO * Signed Intake Intake Visit Reasons: 6 month f/u Allergies No Known Allergies Allergy (Verified 07/20/17 08:38) Medications Tamoxifen Citrate 20 mg PO DAILY #30 tab 07/03/17 [Rx Confirmed 07/20/17] PFSH Medical History Breast cancer (Acute) Surgical History H/O lumpectomy (Acute) H/O mastectomy (Acute) H/O tubal ligation (Acute) Family History Father COPD (chronic obstructive pulmonary disease) Prostate cancer Mother Hyperlipidemia Hypertension Breast cancer Social History Smoking Status: Never smoker HPI HPI HPI: LILIAN QUACH, is a 52 F who presents to the office today for invasive ductal carcinoma of the left breast pathological stage IIa (T1c and 1 a MX) status post chemo and radiation and patient is currently getting Herceptin through November 2017. Patient states she is doing well and she tolerated that chemotherapy fairly well. As well as a radiation with only mild erythema/skin changes during the radiation which have resolved. ROS General General: Yes breast cancer; no weight change or fatigue Breast Breast: No left breast lump, right breast lump, nipple discharge or breast pain Gastro Gastrointestinal: No abdominal pain Exam Const General: cooperative, comfortable, no acute distress Chest Breast Palpation: No nipple discharge Other: Left breast: Incision well-healed, mild superficial changes to the area Oler due to radiation, nontender, left axillary incision well-healed. Right chest: Port site incision well-healed no erythema. Resp Effort AND Inspection: normal respiratory effort Assessment AND Plan Problems 1. Malignant neoplasm of upper-outer quadrant of left breast in female, estrogen receptor positive C50.412 Plan Patient will continue her Herceptin per oncology until November 2017. Discussed with patient to have her regular screening mammogram in about 6 months. Discussed with patient that when she is ready to have her port removed we can do so in office. Patient had no further questions or concerns at this time. Will follow up in about 6 months or when patient needs her port removed. Carissa Omalley M.D. Pager: [phone] [facility] [address] [place] [address], [address] [place] [address] Office: [phone] Plan Detail Follow Up 6 Months Coding Level of Care Code Off vis,est,level 3 Diagnoses Malignant neoplasm of upper-outer quadrant of left breast in female, estrogen receptor positive C50.412 Breast location: upper outer quadrant of breast Estrogen receptor status: positive Patient sex: female 07/20/17 0847 <Electronically signed by Carissa Omalley MD> Date Carissa Omalley MD Cosigner Signature: Date (if applicable) CC: Giovanna Worley MD; Gabrielle Nguyen DO END OF TREATMENT Observed: 07/03/2017 Status: F Source: [facility] SUMMARY 3:29 PM REPOSITORY [facility] Medical Records Department [address] [place] [address] End of Treatment Summary 07/03/17 1512 MR#: [id number] Acct: [id number] Name: LILIAN QUACH Rep #: [id number] : 1965 52 From: Herson Billings DO PCP: Gabrielle Nguyen DO Status: REG RCR Y Location: ONC Diagnosis: Stage IIA (pT1c N1a (sn) M0) of the left breast Oncologic History: 10/12/2016: Bilateral screening mammography was completed and showed evidence of a 1.3 x 1.4 cm irregular nodule in the deep upper lateral portion of the left breast. Recommended ultrasound for further evaluation, BI-RADS 0. 10/18/2016: Left breast ultrasound was performed and confirmed the existence of a 1.4 x 0.9 cm lesion in the outer inferior quadrant of the left breast at the 3 o'clock position about 7 cm from the nipple. BI-RADS 4. 11/15/2016: Ultrasound-guided core biopsy of the left breast mass was performed. Pathology demonstrated grade 2 invasive ductal carcinoma (ER > 95%, AK 6%, HER-2 2+ on IHC and amplified on FISH) which measured 1 cm in greatest diameter. 12/20/2016: The patient underwent left breast lumpectomy and sentinel lymph node biopsy and pathology demonstrated a single focus of grade 2 invasive ductal carcinoma measuring 1.5 cm, margins negative (initial margin is less than 0.1 cm posteriorly but upon re-resection this is greater than 1 cm), no lymphovascular space invasion, 1 of one sentinel lymph node biopsy is positive with 2 foci of metastatic disease the largest being 0.5 cm and no extranodal extension is identified, pathologic stage pT1c N1a. From 01/15/2017 to 05/01/2017: Completed adjuvant chemotherapy consisting of Taxotere and carboplatin 6 cycles given concurrently with Herceptin. In summary, Lliian Quach is a 52-year-old postmenopausal female diagnosed with pathologic stage IIA (pT1c N1a (sn) M0) grade 2 invasive ductal carcinoma (ER > 95%, AK 6%, HER-2 2+ on IHC and amplified on FISH) of the left breast status post lumpectomy and sentinel lymph node biopsy completed on 12/20/2016, and adjuvant chemotherapy consisting of TCH 6 cycles completed from 01/15/2017 - 05/01/2017. The patient completed a course of external beam radiotherapy in our department. This treatment was delivered for curative intent. Treatment was given according to the following parameters: LILIAN QUACH received 4256 cGy of mixed 6, 10, and 15 MV photons in 16 fractions to the left breast and low axilla with a 3D conformal technique consisting of LPO and TORRES balbuena and [id number] to improve dose homogeneity. She then received a boost to the lumpectomy cavity consisting of 1000 cGy of 15 MV photons in 16 fractions with a 3D conformal technique consisting of LPO and TORRES balbuena. This brought the total dose delivered to gross disease to 5256 cGy in 21 fractions. The patient received concurrent Herceptin q3 weeks during radiation. She did not start Tamoxifen during radiation. Date of first treatment: 05/29/17 Date of last treatment: 06/28/17 Total elapsed days (including weekend and holidays): 30 Missed Treatments: 0 Response and Tolerance: The patient tolerated this course of radiotherapy well overall. The following radiation related toxicities developed during the course of radiation therapy: * Grade 1-2 skin toxicity which was treated with Aquaphor and miliaria rubra rash was treated with hydrocortisone * Grade 1 fatigue Disposition: The patient tolerated the planned course of radiation therapy well without unexpected toxicity and treatment was completed in an appropriate time course. I will have Lilian follow-up in about 4 weeks for a routine visit to assess resolution of radiation toxicity. The patient will maintain scheduled follow-up visits with the other providers. She will continue Herceptin every 3 weeks for 1 total year and will initiate tamoxifen in the near future. If I can provide any further information on this patient's course of care, please do not hesitate to ask. I would like to thank you very much for allowing us to participate in the care of this patient. Sincerely, Herosn Billings DO, MS [place], Department of Radiation Oncology [facility] 07/03/17 8520 <Electronically signed by Herson Billings DO> Date Herson Billings DO CC: Jerman Tam MD; Gabrielle Nguyen DO; Herson Billings DO Signed CBC W/DIFF, AUTOMATED Collected: 07/03/2017 Status: F Source: [facility] 11:18 AM REPOSITORY Order Comment: Reason for Laboratory Test cancer TYPE CODE TESTS RESULT OUT OF RANGE REFERENCE UNITS LAB L100.1000 4.4-11.0 K/mm3 Low WBC 3.6 LAB L100.1200 4.2-5.4 M/mm3 Low RBC 3.37 LAB L100.1300 12.0-15.0 g/dl Low HGB 11.3 LAB L100.1400 37-47 % Low HCT 33.1 LAB L100.1500 81-99 fL Normal MCV 98.2 LAB L100.1600 27.0-32.0 pg High MCH 33.5 LAB L100.1700 32-36 g/gl Normal MCHC 34.1 LAB L100.1810 11.6-14.6 % Normal RDW CV 11.6 LAB L100.1820 35.1-43.9 fl Normal RDW SD 41.2 LAB L100.1900 150-450 K/mm3 Normal PLT 182 LAB L100.2000 6.2-12.0 fl Normal MPV 9.5 LAB L100.2100 47-70 % Normal NEUT% 55.3 LAB L100.2200 19-41 % Normal LY% 34.4 LAB L100.2300 0-10 % Normal MONO% 7.8 LAB L100.2400 0-5 % Normal EO% 1.9 LAB L100.2500 0-1 % Normal BASO% 0.6 LAB L100.2550 0.0-0.9 % Normal IM GRAN % 0.000 Result Comment: IG% - Immature Granulocytes (promyelocytes, myelocytes and metamyelocytes) > 1% indicates that a LEFT SHIFT is Present. LAB L100.2620 2.0-7.7 X10 3/uL Normal Absolute Neut 2.0 LAB L100.2720 0.83-4.51 X10 3/ul Normal Absolute Lymph 1.24 Performed By: #### L100.0100 #### [facility] [address] [place], [address] COMPREHENSIVE METABOLIC Collected: 07/03/2017 Status: F Source: [facility] 11:18 AM REPOSITORY Order Comment: Reason for Laboratory Test cancer TYPE CODE TESTS RESULT OUT OF RANGE REFERENCE UNITS LAB L501.0100 70-110 mg/dL Normal GLU 90 LAB L501.1000 7-18 mg/dL Normal BUN 17 LAB L501.1100 0.55-1.02 mg/dL Normal 0.67 CREAT,SERUM Result Comment: The validity of the calculated GFR AND GFRAA in patients over 70 years has not been determined. Clinical correlation is essential. LAB L501.1110 >60 mL/min Normal EST GFR 98 Result Comment: Non- GFR Calc LAB L501.1115 >60 mL/min Normal EST GFR - AA 119 Result Comment: GFR Calc LAB L501.1255 ml/min Normal Estimated CRCL 93.34 LAB L501.1300 10-20 RATIO High BUN/CRE 25.5 LAB L501.1500 6.4-8. g/dL Normal 2 T PROT 7.2 LAB L501.1800 3.4-5. g/dL Normal 0 ALB 3.9 Result Comment: Please note revised Albumin AND Globulin reference range effective 2017. LAB L501.1950 2.2-4.2 g/dL Normal GLOB 3.3 LAB L501.2000 0.9-2.4 RATIO Normal A/G 1.2 LAB L501.2200 8.5-10.1 mg/dL Normal CA 8.9 LAB L501.4100 15-37 U/L Normal AST 23 LAB L501.4305 45-117 U/L Normal ALK P 76 LAB L501.4405 12-78 U/L Normal ALT 32 LAB L501.4600 0.20-1.00 mg/dL Normal T BILI 0.90 LAB L501.5300 136-145 mmol/L Normal NA 142 LAB L501.5600 3.5-5.1 mmol/L Normal K 3.9 LAB L501.5900 98-107 mmol/L High CL 108 LAB L501.6100 21.0-32.0 mmol/L Normal CO2 28.0 LAB L501.6200 5-15 Normal GAP 6 Performed By: #### L500.4050 #### [facility] [address] [place], [address] ONCOLOGY PROGRESS Observed: 06/27/2017 Status: F Source: [facility] NOTE 10:30 AM REPOSITORY [facility] Medical Records Department [address] [place] [address] Oncology Progress Note 06/27/17 1026 MR#: [id number] Acct: [id number] Name: LILIAN QUACH Rep #: [id number] : 1965 52 From: Herson Billings DO PCP: Gabrielle Nguyen DO Status: REG RCR Y Location: [facility] Date of Service: 06/27/17 Diagnosis: Lilian Quach is a 52-year-old postmenopausal female diagnosed with pathologic stage IIA (pT1c N1a (sn) M0) grade 2 invasive ductal carcinoma (ER > 95%, AK 6%, HER-2 2+ on IHC and amplified on FISH) of the left breast status post lumpectomy and sentinel lymph node biopsy completed on 12/20/2016, and adjuvant chemotherapy consisting of TCH 6 cycles completed from 01/15/2017 - 05/01/2017. Plan was made to complete adjuvant radiation therapy to the left breast and low axilla (levels 1 and 2) consisting of 4256 cGy in 16 fractions followed by a boost to the lumpectomy cavity of 1000 cGy in 5 fractions. She is being treated in the prone position to minimize heart and lung dose. Treatment Data: Treatment Site: Left breast and low axilla Current total dose/Total dose planned: 4252 cGy / 4256 cGy, 800 cGy / 1000 cGy (boost) Fraction number: , / (boost) Chemotherapy: None concurrent, she is taking Herceptin q3 weeks and plans for hormone therapy following completion of radiation. She last received Herceptin on on 06/11/2017. Subjective: Patient reports doing well overall. She reports having developed a mild upper inner quadrant erythematous and itchy rash but is being adequately treated with hydrocortisone at this time. She also has some mild breast erythema on the lateral portion of her breast but denies any pain or peeling of her skin. She has mild fatigue. She was sick with GI upset with nausea/vomiting yesterday but much improved today, she had a 24 hour illness and several other family members experienced the same symptoms. Denies other problems at this time. Height/Weight/BMI: Height: 5 ft 7 in Weight: 90.265 kg BMI: 30.7 Vital Signs Height 5 ft 7 in Weight: 87.271 kg Weight in Pounds 192.4 lbs BMI 30.7 Pulse Ox 99 Objective: Gen: NAD Skin: grade 1-2 erythema without desquamation, erythematous punctate rash noted in the upper inner quadrant Assessment: Patient is tolerating the planned course of radiation therapy well without difficulty. All imaging has been reviewed and approved. Grade 1-2 skin erythema is noted, no desquamation Miliaria rubra and upper inner quadrant Plan: I reviewed the potential treatment toxicities and the likely time course for acute toxicities I reviewed skin care instructions including twice daily lotion use. Continue hydrocortisone use for rash. She will complete treatment tomorrow and then return in one month. Thank you for allowing me to participate in the management and care of your patient. If I may answer any questions in the interim, please do not hesitate to contact me at any time. Herson Billings DO, MS [place], Department of Radiation Oncology [facility] 06/27/17 1030 <Electronically signed by Herson Billings DO> Date Herson Billings DO CC: Signed ONCOLOGY PROGRESS Observed: 06/20/2017 Status: F Source: [facility] NOTE 10:37 AM REPOSITORY [facility] Medical Records Department [address] [place] [address] Oncology Progress Note 06/20/17 1031 MR#: [id number] Acct: [id number] Name: LILIAN QUACH Rep #: [id number] : 1965 52 From: Herson Billings DO PCP: Gabrielle Nguyen DO Status: REG RCR Y Location: [facility] Date of Service: 06/20/17 Diagnosis: Lilian Quach is a 52-year-old postmenopausal female diagnosed with pathologic stage IIA (pT1c N1a (sn) M0) grade 2 invasive ductal carcinoma (ER > 95%, AK 6%, HER-2 2+ on IHC and amplified on FISH) of the left breast status post lumpectomy and sentinel lymph node biopsy completed on 12/20/2016, and adjuvant chemotherapy consisting of TCH 6 cycles completed from 01/15/2017 - 05/01/2017. Plan was made to complete adjuvant radiation therapy to the left breast and low axilla (levels 1 and 2) consisting of 4256 cGy in 16 fractions followed by a boost to the lumpectomy cavity of 1000 cGy in 5 fractions. She is being treated in the prone position to minimize heart and lung dose. Treatment Data: Treatment Site: Left breast and low axilla Current total dose/Total dose planned: 4252 cGy / 4256 cGy, 200 cGy / 1000 cGy (boost) Fraction number: , (boost) Chemotherapy: None concurrent, she is taking Herceptin q3 weeks and plans for hormone therapy following completion of herceptin. She last received Herceptin on on 06/11/2017. Subjective: Patient reports doing well overall. She reports having developed a mild upper inner quadrant erythematous and itchy rash but is being adequately treated with hydrocortisone at this time. She also has some mild breast erythema on the lateral portion of her breast but denies any pain or peeling of her skin. She denies having any fatigue or other problems at this time. Height/Weight/BMI: Height: 5 ft 7 in Weight: 90.265 kg BMI: 30.7 Vital Signs Height 5 ft 7 in Weight: 88.359 kg Weight in Pounds 194.8 lbs BMI 30.7 Pulse Ox 99 Objective: Gen: NAD Skin: grade 1 erythema without desquamation, erythematous punctate rash noted in the upper inner quadrant Assessment: Patient is tolerating the planned course of radiation therapy well without difficulty. All imaging has been reviewed and approved. Grade 1 skin erythema is noted, no desquamation Miliaria rubra and upper inner quadrant Plan: I reviewed the potential treatment toxicities and the likely time course for acute toxicities I reviewed skin care instructions including twice daily lotion use. Continue hydrocortisone use for rash. She will return next week for OTV or sooner if needed. Thank you for allowing me to participate in the management and care of your patient. If I may answer any questions in the interim, please do not hesitate to contact me at any time. Herson Billings DO, MS [place], Department of Radiation Oncology [facility] 06/20/17 1037 <Electronically signed by Herson Billings DO> Date Herson Billings DO CC: Signed CONSULTATION Observed: 05/10/2017 Status: F Source: [facility] 2:23 PM REPOSITORY [facility] Medical Records Department [address] [place] [address] Consultation 05/10/17 1348 MR#: [id number] Acct: [id number] Name: LILIAN QUACH Rep #: [id number] : 1965 52 From: Herson Billings DO PCP: Gabrielle Nguyen DO Status: REG RCR Y Location: [facility] Date of Service: 05/10/17 Referring Provider: Dr. Tam Diagnosis: Lilian Quach is a 52-year-old postmenopausal female diagnosed with pathologic stage IIA (pT1c N1a (sn) M0) grade 2 invasive ductal carcinoma (ER > 95%, AK 6%, HER-2 2+ on IHC and amplified on FISH) of the left breast status post lumpectomy and sentinel lymph node biopsy completed on 12/20/2016, and adjuvant chemotherapy consisting of TCH 6 cycles completed from 01/15/2017 - 05/01/2017. History of Present Illness: 10/12/2016: Bilateral screening mammography was completed and showed evidence of a 1.3 x 1.4 cm irregular nodule in the deep upper lateral portion of the left breast. Recommended ultrasound for further evaluation, BI-RADS 0. 10/18/2016: Left breast ultrasound was performed and confirmed the existence of a 1.4 x 0.9 cm lesion in the outer inferior quadrant of the left breast at the 3 o'clock position about 7 cm from the nipple. BI-RADS 4. 11/15/2016: Ultrasound-guided core biopsy of the left breast mass was performed. Pathology demonstrated grade 2 invasive ductal carcinoma (ER > 95%, AK 6%, HER-2 2+ on IHC and amplified on FISH) which measured 1 cm in greatest diameter. 12/20/2016: The patient underwent left breast lumpectomy and sentinel lymph node biopsy and pathology demonstrated a single focus of grade 2 invasive ductal carcinoma measuring 1.5 cm, margins negative (initial margin is less than 0.1 cm posteriorly but upon re-resection this is greater than 1 cm), no lymphovascular space invasion, 1 of one sentinel lymph node biopsy is positive with 2 foci of metastatic disease the largest being 0.5 cm and no extranodal extension is identified, pathologic stage pT1c N1a. From 01/15/2017 to 05/01/2017: Completed adjuvant chemotherapy consisting of Taxotere and carboplatin 6 cycles given concurrently with Herceptin. Radiation Treatment History: No pacemaker. No previous history of radiation therapy. No difficulty in positioning for radiation therapy. Interval History: Crystal Quach presents for for initial consultation. She reports doing well overall she completed her chemotherapy on 01 May and reports that she has recovered from the majority of her side effects and her energy has greatly improved. She denies any breast pain, fluid collections, lymphedema, fevers/chills, shoulder stiffness or difficulty with arm range of motion, nausea or vomiting, diarrhea/constipation, bone pain, or fatigue. She also denies having any headaches, ataxia, weakness/numbness, incoordination, or other problems at this time. 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 I have reviewed the medical, surgical, and other pertinent history in details and have updated medication and allergy information in the electronic medical record. Past Medical History Hx Genetic Disorder No Hx Heart Attack No Hx Hypertension No Hx Irregular Heartbeat No Hx Diabetes No Hx Stroke/TIA No Hx Heart Failure No Hx AIDS No Hx HIV No Hx Mental Disorder No Hx Kidney Disease No Hx Asthma No Hx Ulcer No Hx Arthritis No Hx Glaucoma No Hx Thyroid Disease No Hx Anemia No Hx Chronic Obstructive No Pulmonary Disease (COPD) Hx Tuberculosis No Hx Hepatitis No Hx Clotting Problems No Hx Cardiac Disorders No Hx Chronic Infections No Hx Osteoporosis No Hx Rheumatoid Arthritis No Hx Lupus No Hx Hypercholesterolemia No Gynecological History Age at first period: 11 Hx Age of Menopause 43 LMP: 05/02/08 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 Date of last PAP smear: September 2016 Hx Control Yes Hx Hormone Therapy Yes Obstetric History Number of pregnancies: 2 Number of children: 2 Have you ever breastfed in the No past? Breast Health Monthly breast self-exams Yes performed? Do you have regular clinical Yes breast examinations? Date of last mammogram: 09/30/16, routinely completed yearly mammograms Have you ever had an abnormal Yes, but no previous biopsies mammogram? Past Surgical History: Mastectomy Tubal Ligation PARTIAL MASTECTOMY LEFT Family History: Breast cancer was diagnosed in the patient's mother as well as 2 of the maternal aunts, she believes all were diagnosed after the age of 60. Home Medications Medication Instructions Recorded Dexamethasone 4 mg PO BID #30 tablet 01/04/17 Allergies No Known Allergies Allergy (Verified 05/01/17 08:31) Health Maintenance Do you regularly see your No primary care physician? Have you ever had a No colonoscopy? Review of Systems: A 12-point review of systems was completed and was negative except for what is noted in the HPI/Interval History and by the nurse. Height/Weight/BMI: Height: 5 ft 7 in Weight: 88.813 kg BMI: 30.7 Vital Signs Temp Pulse Resp BP Pulse Ox 97.6 F 92 114/81 97 05/10/17 11:00 05/10/17 11:00 05/10/17 11:00 05/10/17 11:00 Physical Exam: ECO KARNOFSKY SCORE: 100% CONSTITUTIONAL: Well-developed, well-nourished, and in no apparent distress. HEENT: Mucous membranes moist. No evidence of thrush or lesions within the visualized oropharynx or oral cavity. No trismus. Pupils are equal, round, and reactive to light and accommodation. Extraocular movements are intact. Sclerae are anicteric. NECK: Supple,with no thyromegaly, and non-tender. Trachea midline. No cervical or supraclavicular adenopathy noted. CARDIAC: Regular rate and rhythm. Normal S1, S2. No murmurs, rubs, or gallops. PULMONARY/CHEST: Lungs are clear to auscultation and percussion bilaterally. No wheezes, rhonchi, or crackles noted. No increased work of breathing. ABDOMINAL: Abdomen soft, non-tender, non-distended. No hepatomegaly. Normoactive bowel sounds in all four quadrants. No guarding, rebound. BACK: Straight and aligned. No CVA tenderness. Axial skeleton non-tender to percussion. EXTREMITIES: Full range of motion in all four extremities, with normal strength equally and symmetrically. No evidence of edema. No clubbing. BREAST: The bilateral breasts were examined in the seated and supine positions. Breasts appear fairly symmetric. In the left breast there is a lumpectomy scar measuring a about 3 cm at the 3 o'clock position. Scars well-healed and there is no evidence of dehiscence or infection, there is no evidence of seroma or fluid collection. In the left axilla there is a small 1-2 cm scar from the lymph node excision which is also well-healed without evidence of infection or fluid collection. There are no apparent masses or lesions noted in either breast or axilla. SKIN: Skin is warm and dry. No rashes or lesions evident. NEUROLOGICAL EXAM: Alert and oriented x 3. Cranial nerves II through XII are grossly intact. No focal neurological deficit. Speech is fluent. There is no upper or lower extremity sensory deficit or motor deficit. Muscle strength is 5/5 in all muscle groups. Gait and posture are steady. There are no abnormal cerebellar signs. PSYCHIATRIC: Appropriate mood and affect for the clinical situation. Imaging: As per HPI Other Laboratory Data: Laboratory Tests WBC 4.6 Hgb 10.7 L BUN 16 Creatinine 0.71 Assessment: Lilian Quach is a 52-year-old postmenopausal female diagnosed with pathologic stage IIA (pT1c N1a (sn) M0) grade 2 invasive ductal carcinoma (ER > 95%, AK 6%, HER-2 2+ on IHC and amplified on FISH) of the left breast status post lumpectomy and sentinel lymph node biopsy completed on 12/20/2016, and adjuvant chemotherapy consisting of TCH 6 cycles completed from 01/15/2017 - 05/01/2017. Plan: I had a detailed discussion with the patient regarding the diagnosis of stage II breast cancer and various treatment options that are available to her. I discussed with her that would be standard of care to deliver radiation therapy to the breast after lumpectomy is completed for invasive disease as she does not fit qualifications for patients who could potentially avoid radiation therapy. I also discussed that there is some lack of agreement regarding the management of patients who have 1-3 lymph nodes that are positive on sentinel lymph node biopsy. I reviewed that Z11 trial suggested that patients can be appropriately treated with whole breast radiation therapy with or without high tangents covering lymph node levels 1 and 2. I further discussed the more recent in [place] 20 and EORTC trials that suggest improvements in local regional recurrence disease-free survival and metastatic disease free survival when comprehensive reyna radiation is included in the management in patients with 1-3 positive nodes or high-risk node negative patients. I do believe that it is clear that the Z11 trial enrolled lower risk patients than both the MA 20 and EORTC trials and that this patient aligns much better with the Z11 patients. She is 52 years old, has grade 2 disease that is ER positive and measures 1.5 cm, no LVSI, has 1 small sentinel lymph node at 5 mm without DANIEL that was clinically node negative. This matches very well with the Z11 enrollment criteria and is lower risk than the typical MA 20 patient. Therefore I do believe it is reasonable that whole breast radiation therapy with high tangents would achieve very high rates of local regional control and that the addition of supraclavicular and internal mammary lymph nodes would likely only add unnecessary toxicity with lower chances for benefit. I would opt for high tangents in this case given that only one sentinel lymph node was removed and some of the confusion from the analysis of the treatment balbuena from Z11. I discussed that I would like to pursue radiation therapy in the prone position due to her anatomy and the ability to help avoid cardiac dose. In the event that this positioning is not feasible I would treat her supine potentially with deep inspiration breath hold. I discussed the risks, benefits, and alternatives to radiation therapy and all questions and concerns were answered to the best of my ability. I explained the logistics of radiation therapy. In particular I discussed that the radiation proceeds over several weeks and is delivered with daily fractionation. The process of planning radiation therapy was also discussed including the need for CT simulation, placement of tattoos or other marking, completion of the CT scan, and treatment planning including a verification simulation prior to initiation of treatment. In some this would take in general a couple of weeks. I then discussed the possibility of acute side effects from radiation which would include but are not limited to: fatigue, skin irritation including desquamation particularly along skin folds, breast pain or discomfort, and breast swelling. The long- term risks include, but are not limited to: residual hyperpigmentation or hypopigmentation (10%); skin telangectasias; radiation pneumonitis (<0.5%); lung scarring/fibrosis; breast fibrosis and change in breast contour with a 15-20% risk of poor cosmetic outcome; radiation- induced heart disease, particularly for left-sided breast cancers; shoulder stiffness or reduced ROM; lymphedema (1-2% increased risk above surgical risk); rib fracture (<1%); remote- risk of radiation-induced malignancy. At the end of the discussion, the patient had many questions all of which were thoroughly answered. Informed consent was signed and placed in the medical record. CT simulation has been scheduled for 05/16/2017. Thank you for allowing me to participate in the management and care of your patient. If I may answer any questions in the interim, please do not hesitate to contact me at any time. Herson Billings DO, MS [place], Department of Radiation Oncology [facility] 05/10/17 1423 <Electronically signed by Herson Billings DO> Date Herson Billings DO Cosigner Signature (if applicable): Date CC: Jerman Tam MD; Gabrielle Nguyen DO Signed ALLERGIES ALLERGIES DATE TYPE / CODE NAME / CODE REACTION SEVERITY SOURCE 05/30/2018 Drug No Known Unknown [place] [facility] Allergy/4160 Allergies/F00 Hospital 41138(SNOMED 2069662(RXNOR Repository CT) M) ENCOUNTERS ENCOUNTERS ADMIT/DISCHARGE ACCOUNT ADMITTING ENCOUNTER LOCATION SOURCE NUMBER CLASS 05/30/2018 [id number] Ambulatory BMSBuilding:B [place] 3 [facility] Repository 05/30/2018 [id number] Ambulatory [place] 7 [facility] ing:OMD Repository 05/29/2018/ [id number] Ambulatory BMSBuilding:B [place] 8 6 [facility] Repository 05/29/2018/ [id number] Ambulatory [place] 8 9 [facility] ing:ENRoom: Repository AC11 05/08/2018/ [id number] Ambulatory BMSBuilding:B [place] 8 6 [facility] Repository 04/23/2018 [id number] Ambulatory BMSBuilding:B [place] 5 [place] Repository 04/18/2018 [id number] Ambulatory [place] 1 [facility] Hospital ing:CT Repository 04/10/2018 [id number] Ambulatory BMSBuilding:B [place] 4 [facility] Repository 03/28/2018 [id number] Ambulatory [place] 0 [facility] Hospital ing:CVS Repository 03/28/2018 [id number] Ambulatory BMS[facility]:W [place] 9 [facility] Repository 02/05/2018 [id number] Ambulatory BMSBuilding:B [place] 9 [facility] Repository 01/22/2018/ [id number] Ambulatory BMSBuilding:B [place] 8 9 [facility] Hospital Repository 01/08/2018 [id number] Ambulatory BMSBuilding:B [place] 2 [facility] Repository 12/18/2017 [id number] Ambulatory BMSBuilding:B [place] 3 [facility] Repository 12/03/2017 [id number] Ambulatory [place] 0 [facility] Repository 12/03/2017 [id number] Ambulatory BMSBuilding:W [place] 8 [facility] Hospital Repository 11/27/2017 [id number] Ambulatory BMSBuilding:B [place] 1 [facility] Hospital Repository 11/06/2017 [id number] Ambulatory BMSBuilding:B [place] 2 [facility] Hospital Repository 10/30/2017 [id number] Ambulatory BMSBuilding:B [place] 4 [facility] Repository 10/25/2017 [id number] Ambulatory [place] 4 [facility] ing:OPBI Repository 10/16/2017 [id number] Ambulatory BMSBuilding:B [place] 8 [facility] Repository 09/26/2017 [id number] Ambulatory [place] 4 [facility] ing:[facility]SPEC Repository 09/24/2017 [id number] Ambulatory BMSBuilding:B [place] 8 [facility] Repository 09/20/2017 [id number] Ambulatory [place] 0 [facility] ing:[facility]S Repository 09/20/2017 [id number] Ambulatory BMSBuilding:W [place] 1 [facility] Hospital Repository 09/03/2017 [id number] Ambulatory BMSBuilding:B [place] 9 MS.[facility] Hospital Repository 08/13/2017 [id number] Ambulatory BMSBuilding:B [place] 0 MS.[facility] Hospital Repository 07/24/2017 [id number] Ambulatory BMSBuilding:W [place] 5 [facility] Hospital Repository 07/23/2017 [id number] Ambulatory BMSBuilding:B [place] 8 MS.[facility] Repository 07/20/2017/ [id number] Ambulatory BMSBuilding:B [place] 8 8 [facility] Repository 07/03/2017 [id number] Ambulatory BMSBuilding:B [place] 3 MS.[facility] Repository 06/27/2017 [id number] Ambulatory [facility]MS[facility]:W [place] 4 [facility] Repository 06/20/2017 [id number] Ambulatory BMSBuilding:W [place] 3 [facility] Repository 06/20/2017 [id number] Ambulatory BMSBuilding:W [place] 3 [facility] Repository PAYERS PAYERS ENCOUNTER GUARANTOR PAYER SUBSCRIBER SOURCE 05/30/2018 REGINALDO Hernández Primary LILIAN L [place] [id number] Insurance:AETNAPolicy OGDENDOB: [facility] Number: [id number] [id number] Repository 03008Szu: (330) Date:6269-16-82Iq [phone] () [id number], [place] [address]RN: 05/30/2018 Secondary NOT GIVENUNK [place] Insurance:SELF PAY [facility] Number: Effective Repository Date:2018-05-30 05/30/2018 REGINALDO Hernández Primary LILIAN L [place] [id number] Insurance:AETNAPolicy OGDENDOB: [facility] Number: [id number], [place] [id number] Repository 78301Exj: (330) Date:3675-52-94Tz [phone] () [id number], [place] [address]SB: 05/30/2018 Secondary LILIAN L [place] Insurance:CHEMO OGDENDOB: [facility] [id number] Hospital Number: Repository [id number] Date:2016-12-26 05/30/2018 Tertiary NOT GIVENUNK [place] Insurance:SELF PAY [facility] Number: Effective Repository Date:2016-12-26 05/29/2018 REGINALDO L Primary LILIAN L [place] [id number] Insurance:AETNAPolicy OGDENDOB: [facility] Number: [id number], [place] [id number] Repository 85938Mhf: (330) Date:3973-49-73Ag [phone] (HP) [id number] PasCALVIN robert [address]PQ: 05/29/2018 Secondary NOT GIVENUNK [place] Insurance:SELF PAY [facility] Number: Effective Repository Date:2018-05-29 05/29/2018 REGINALDO Hernández Primary LILIAN L [place] [id number] Insurance:AETNAPolicy OGDENDOB: [facility] Number: [id number], [place] [id number] Repository 91003Fmd: (330) Date:1762-31-51Fv [phone] (HP) 876338[place] [address]VZ: 05/29/2018 Secondary NOT GIVENUNK [place] Insurance:SELF PAY [facility] Number: Effective Repository Date:2018-05-08 05/08/2018 REGINALDO Hernández Primary LILIAN L [place] [id number] Insurance:AETNAPolicy OGDENDOB: [facility] Number: [id number], [place] [id number] Repository 34347Prm: (330) Date:0858-48-84Zo [phone] () [id number] [place] [address]JQ: 05/08/2018 Secondary NOT GIVENUNK [place] Insurance:SELF PAY [facility] Number: Effective Repository Date:2018-05-03 04/23/2018 REGINALDO L Primary LILIAN L [place] [id number] Insurance:AETNAPolicy OGDENDOB: [facility] Number: [id number], [place] [id number] Repository 83698Lqc: (330) Date:6396-68-76Ff [phone] (HP) 191629Iu PasCALVIN robert [address]BY: 04/23/2018 Secondary NOT GIVENUNK [place] Insurance:SELF PAY [facility] Number: Effective Repository Date:2018-04-23 04/18/2018 REGINALDO Hernández Primary LILIAN L [place] [id number] Insurance:AETNAPolicy OGDENDOB: Community [facility] Number: [id number], [place] [id number] Repository 46060Ibm: (330) Date:3404-42-99Oh [phone] (HP) 825420Ct [place] [address]VR: 04/18/2018 Secondary NOT GIVENUNK [place] Insurance:SELF PAY [facility] Number: Effective Repository Date:2018-04-10 04/10/2018 REGINALDO Hernández Primary LILIAN L [place] [id number] Insurance:AETNAPolicy OGDENDOB: [facility] Number: [id number], [place] [id number] Repository 86443Nip: (330) Date:3022-51-94Mt [phone] (HP) [id number] [place] [address]BU: 04/10/2018 Secondary LILIAN L [place] Insurance:CHEMO OGDENDOB: [facility] [id number] Hospital Number: Repository [id number] Date:2016-12-26 04/10/2018 Tertiary NOT GIVENUNK [place] Insurance:SELF PAY [facility] Number: Effective Repository Date:2018-04-10 03/28/2018 REGINALDO Hernández Primary LILIAN L [place] [id number] Insurance:AETNAPolicy OGDENDOB: [facility] Number: [id number], [place] [id number] Repository 80542Dik: (330) Date:3376-53-65Lv [phone] (HP) 615329Cx [place] [address]GU: 03/28/2018 Secondary NOT GIVENUNK [place] Insurance:SELF PAY [facility] Number: Effective Repository Date:2018-02-05 03/28/2018 REGINALDO L Primary LILIAN L [place] [id number] Insurance:AETNAPolicy OGDENDOB: [facility] Number: [id number], [place] [id number] Repository 37346Tbt: (330) Date:8306-75-79Ts [phone] () [id number] [place] [address]LI: 03/28/2018 Secondary NOT GIVENUNK [place] Insurance:SELF PAY [facility] Number: Effective Repository Date:2018-03-28 02/05/2018 REGINALDO L Primary LILIAN L [place] [id number] Insurance:AETNAPolicy OGDENDOB: [facility] Number: [id number], [place] [id number] Repository 45573Stv: (330) Date:3261-94-21Br [phone] () [id number], [place] [address]RK: 02/05/2018 Secondary NOT GIVENUNK [place] Insurance:SELF PAY [facility] Number: Effective Repository Date:2018-02-05 01/22/2018 REGINALDO L Primary LILIAN L [place] [id number] Insurance:AETNAPolicy OGDENDOB: [facility] Number: [id number], [place] [id number] Repository 25824Qmw: (330) Date:6632-85-39Wb [phone] () [id number], [place] [address]QI: 01/22/2018 Secondary LILIAN L [place] Insurance:CHEMO OGDENDOB: [facility] [id number] Hospital Number: Repository [id number] Date:2018-01-17 01/22/2018 Tertiary NOT GIVENUNK [place] Insurance:SELF PAY [facility] Number: Effective Repository Date:2018-01-17 01/08/2018 REGINALDO L Primary LILIAN L [place] [id number] Insurance:AETNAPolicy OGDENDOB: [facility] Number: [id number], [place] [id number] Repository 12834Oph: (330) Date:5563-14-99Hh [phone] (HP) 495115EhC[place], [place] [address]WI: 01/08/2018 Secondary NOT GIVENUNK [place] Insurance:SELF PAY [facility] Number: Effective Repository Date:2018-01-08 12/18/2017 REGINALDO Hernández Primary LILIAN L [place] [id number] Insurance:AETNAPolicy OGDENDOB: [facility] Number: [id number], [place] [id number] Repository 60491Dzf: (330) Date:6677-28-43Bf [phone] () [id number], [place] [address]YD: 12/18/2017 Secondary LILIAN L [place] Insurance:CHEMO OGDENDOB: [facility] [id number] Hospital Number: Repository [id number] Date:2016-12-26 12/18/2017 Tertiary NOT GIVENUNK [place] Insurance:SELF PAY [facility] Number: Effective Repository Date:2017-12-18 12/03/2017 REGINALDO Hernández Primary LILIAN L [place] [id number] Insurance:AETNAPolicy OGDENDOB: [facility] Number: [id number], [place] [id number] Repository 51649Ozc: (330) Date:2962-41-40Si [phone] () [id number], [place] [address]WO: 12/03/2017 Secondary LILIAN L [place] Insurance:CHEMO OGDENDOB: [facility] [id number] Hospital Number: Repository [id number] Date:2017-09-24 12/03/2017 Tertiary NOT GIVENUNK [place] Insurance:SELF PAY [facility] Number: Effective Repository Date:2017-09-24 12/03/2017 REGINALDO Hernández Primary LILIAN L [place] [id number] Insurance:AETNAPolicy OGDENDOB: [facility] Number: [id number], [place] [id number] Repository 01293Sya: (330) Date:3705-73-37Di [phone] () [id number], [place] [address]QF: 12/03/2017 Secondary LILIAN L [place] Insurance:CHEMO OGDENDOB: [facility] [id number] Hospital Number: Repository [id number] Date:2017-09-24 12/03/2017 Tertiary NOT GIVENUNK [place] Insurance:SELF PAY [facility] Number: Effective Repository Date:2017-12-03 11/27/2017 REGINALDO L Primary LILIAN L [place] [id number] Insurance:AETNAPolicy OGDENDOB: [facility] Number: [id number], [place] [id number] Repository 44022Mum: (330) Date:5385-61-54Cn [address] [phone] () [id number], [place] [address]FG: 11/27/2017 Secondary NOT GIVENUNK [place] Insurance:SELF PAY [facility] Number: Effective Repository Date:2017-11-27 11/06/2017 REGINALDO L Primary LILIAN L [place] [id number] Insurance:AETNAPolicy OGDENDOB: [facility] Number: [id number], [place] [id number] Repository 82031Pgt: (330) Date:0928-86-40Ig [address] [phone] () 565226VtCarter, [place] [address]DE: 11/06/2017 Secondary NOT GIVENUNK [place] Insurance:SELF PAY [facility] Number: Effective Repository Date:2017-11-06 10/30/2017 Reginaldo L Primary LILIAN L [place] [id number] Insurance:AETNAPolicy OGDENDOB: [facility] Number: [id number] [place], [place] [id number] Repository 94547Cyl: (330) Date:5892-82-92Gm [address] [phone] (HP) 970265Mr [place], [place] [address]FA: 10/30/2017 Secondary NOT GIVENUNK [place] Insurance:SELF PAY [facility] Number: Effective Repository Date:2017-10-30 10/25/2017 Reginaldo Hernández Primary LILIAN L [place] [id number] Insurance:AETNAPolicy OGDENDOB: [facility] [place] Number: [id number] Center, [place] [id number] Repository 07703Alr: (330) Date:5714-12-14Vt [address] [phone] (HP) [id number] [place] [address]CG: 10/25/2017 Secondary LILIAN L [place] Insurance:CHEMO OGDENDOB: [facility] [id number] Hospital Number: Repository [id number] Date:2017-10-02 10/25/2017 Tertiary NOT GIVENUNK [place] Insurance:SELF PAY [facility] Number: Effective Repository Date:2017-10-02 10/16/2017 Reginaldo L Primary LILIAN L [place] [id number] Insurance:AETNAPolicy OGDENDOB: [facility] [place] Number: [id number] Center, [place] [id number] Repository 53894Tlr: (330) Date:1921-47-65Nk [address] [phone] (HP) 928557Hd [place] [address]BB: 10/16/2017 Secondary NOT GIVENUNK [place] Insurance:SELF PAY [facility] Number: Effective Repository Date:2017-10-16 09/26/2017 Reginaldo L Primary LILIAN L [place] [id number] Insurance:AETNAPolicy OGDENDOB: [facility] [place] Number: [id number] [place], [place] [id number] Repository 60280Bch: (330) Date:7583-78-85Ij [address] [phone] (HP) 105426Lf [place] [address]TW: 09/26/2017 Secondary LILIAN L [place] Insurance:CHEMO OGDENDOB: [facility] [id number] Hospital Number: 0Effective Repository Date:2017-09-26 09/26/2017 Tertiary NOT GIVENUNK [place] Insurance:SELF PAY [facility] Number: Effective Repository Date:2017-09-26 09/24/2017 Reginaldo L Primary LILIAN L [place] [id number] Insurance:AETNAPolicy OGDENDOB: [facility] Number: [id number] Center, [place] [id number] Repository 35660Wxn: (553) Date:0455-76-81Vk [phone] () 637461Ct [place] [address]PO: 09/24/2017 Secondary NOT GIVENUNK [place] Insurance:SELF PAY [facility] Number: Effective Repository Date:2017-09-24 09/20/2017 Reginaldo Hernández Primary LILIAN L [place] [id number] Insurance:AETNAPolicy OGDENDOB: [facility] Number: [id number] [place], [place] [id number] Repository 28916Iiq: (330) Date:3265-12-49Gr [address] [phone] () [id number] [place] [address]AC: 09/20/2017 Secondary LILIAN L [place] Insurance:CHEMO OGDENDOB: [facility] [id number] Hospital Number: 0Effective Repository Date:2017-09-03 09/20/2017 Tertiary NOT GIVENUNK [place] Insurance:SELF PAY [facility] Number: Effective Repository Date:2017-09-03 09/20/2017 Reginaldo L Primary LILIAN L [place] [id number] Insurance:AETNAPolicy OGDENDOB: [facility] Number: [id number] Center, [place] [id number] Repository 29006Bed: (330) Date:0877-52-39Jh [address] [phone] (HP) 172204Cn [place] [address]RY: 09/20/2017 Secondary LILIAN L [place] Insurance:CHEMO OGDENDOB: [facility] [id number] Hospital Number: 0Effective Repository Date:2017-09-03 09/20/2017 Tertiary NOT GIVENUNK [place] Insurance:SELF PAY [facility] Number: Effective Repository Date:2017-09-20 09/03/2017 Reginaldo L Primary LILIAN L [place] [id number] Insurance:AETNAPolicy OGDENDOB: [facility] Number: [id number] [place], [place] [id number] Repository 64[address]Dak: (330) Date:1453-78-15Cz [address] [phone] (HP) 026146WqCALVIN Maki [address]KF: 09/03/2017 Secondary NOT GIVENUNK [place] Insurance:SELF PAY [facility] Number: Effective Repository Date:2017-09-03 08/13/2017 Reginaldo L Primary LILIAN L [place] [id number] Insurance:AETNAPolicy OGDENDOB: [facility] Number: [id number] Center, [place] [id number] Repository 25845Arh: (330) Date:2571-51-58My [address] [phone] (HP) 866401Gq [place] [address]AY: 08/13/2017 Secondary NOT GIVENUNK [place] Insurance:SELF PAY [facility] Number: Effective Repository Date:2017-08-13 07/24/2017 Reginaldo L Primary LILIAN L [place] [id number] Insurance:AETNAPolicy OGDENDOB: [facility] Number: [id number] [place], [place] [id number] Repository 35829Aqn: (330) Date:8179-80-86CO [phone] (HP) 536903DECALVIN MAKI [address]MP: 07/24/2017 Secondary LILIAN L [place] Insurance:CHEMO OGDENDOB: [facility] [id number] Hospital Number: Effective Repository Date:2017-05-03 07/24/2017 Tertiary NOT GIVENUNK [place] Insurance:SELF PAY [facility] Number: Effective Repository Date:2017-07-24 07/23/2017 Reginaldo L Primary LILIAN L [place] [id number] Insurance:AETNAPolicy OGDENDOB: [facility] [place] Number: [id number] Center, [place] [id number] Repository 12601Krh: (330) Date:1107-79-63Ia [address] [phone] (HP) 903626Cq [place] [address]EI: 07/23/2017 Secondary NOT GIVENUNK [place] Insurance:SELF PAY [facility] Number: Effective Repository Date:2017-07-23 07/20/2017 Reginaldo Hernández Primary LILIAN L [place] [id number] Insurance:AETNAPolicy OGDENDOB: [facility] Number: [id number] Center, [place] [id number] Repository 25519Oxa: (330) Date:1017-60-81Zj [address] [phone] (HP) 188617Jp [place] [address]RJ: 07/20/2017 Secondary NOT GIVENUNK [place] Insurance:SELF PAY [facility] Number: Effective Repository Date:2017-06-02 07/03/2017 Reginaldo Hernández Primary LILIAN L [place] [id number] Insurance:AETNAPolicy OGDENDOB: [facility] Number: [id number] Center, [place] [id number] Repository 31789Zxp: (330) Date:6116-27-90Ev [address] [phone] (HP) 883778Tx [place] [address]PJ: 07/03/2017 Secondary LILIAN L [place] Insurance:CHEMO OGDENDOB: [facility] [id number] Hospital Number: 0Effective Repository Date:2016-12-26 07/03/2017 Tertiary NOT GIVENUNK [place] Insurance:SELF PAY [facility] Number: Effective Repository Date:2017-07-03 06/27/2017 REGINALDO Hernández Primary LILIAN L [place] [id number] Insurance:AETNAPolicy OGDENDOB: [facility] Number: [id number], [place] [id number] Repository 01916Moz: (330) Date:9576-24-17Gh [address] [phone] () 476265CpC[place] [address]TG: 06/27/2017 Secondary LILIAN L [place] Insurance:CHEMO OGDENDOB: [facility] [id number] Hospital Number: Repository [id number] Date:2017-11-27 06/27/2017 Tertiary NOT GIVENUNK [place] Insurance:SELF PAY [facility] Number: Effective Repository Date:2017-06-27 06/20/2017 Reginaldo Hernández Primary LILIAN L [place] [id number] Insurance:AETNAPolicy OGDENDOB: [facility] Number: [id number] Center, [place] [id number] Repository 61876Zsf: 330) Date:4935-47-61Rc [address] [phone] () 777524ZiCarter, [place] [address]XQ: 06/20/2017 Secondary LILIAN L [place] Insurance:CHEMO OGDENDOB: [facility] [id number] Hospital Number: 0Effective Repository Date:2016-12-26 06/20/2017 Tertiary NOT GIVENUNK [place] Insurance:SELF PAY [facility] Number: Effective Repository Date:2017-06-20 06/20/2017 REGINALDO L Primary LILIAN L [place] [id number] Insurance:AETNAPolicy [place]OB: [facility] [facility] [place]: [id number] [id number] Repository [id number]: 330) Date:[id number] [phone] (OO) [id number] Arielyesica CALVIN [id number]: 06/20/2017 Secondary LILIAN L [place] Insurance:CHEMO OGDENDOB: [facility] [id number] [place] [facility] Number: Repository [id number] Date:2017-11-27 06/20/2017 Tertiary NOT GIVENUNK [place] Insurance:SELF PAY [facility]: Effective Repository Date:2017-06-20
== END 2018-05-29 11:42 | disposition home or self-care (01) ==
LOC: EN 08:31 → AC 08:33
PROVIDERS: Family Provider Family Medicine; PCP Family Medicine; Referring Provider Surgery; Visit Provider Surgery
PROC: 0DJD8ZZ Inspection of Lower Intestinal Tract, Via Natural or Artificial Opening Endoscopic (ICD-10-PCS; CPT 45378; principal; 2018-05-29 09:40)
DX: Z12.11 Encounter for screening for malignant neoplasm of colon (principal); K64.0 First degree hemorrhoids; K64.4 Residual hemorrhoidal skin tags; C50.919 Malignant neoplasm of unspecified site of unspecified female breast; Z78.0 Asymptomatic menopausal state; Z79.82 Long term (current) use of aspirin; Z79.810 Long term (current) use of selective estrogen receptor modulators (SERMs); Z79.899 Other long term (current) drug therapy
CPT/HCPCS: 45378; J7120

== ENCOUNTER → 2018-10-22 06:54 | Outpatient (CLI) | payer OTHER, SELFPAY ==
[2017-05-14 09:07] VITALS: BMI 30.7
--- NOTE | 2018-10-22 07:00 | CT_ITS ---
STUDY: CT CHEST WITH CONTRAST REASON FOR EXAM: Female, 53 years old. Right upper lung nodule follow-up. History of breast cancer with left lumpectomy. RADIATION DOSAGE (If Supplied By Facility): CTDIvol = ( 10.91 ) mGy, DLP = ( 467.46 ) mGycm TECHNIQUE: Transaxial imaging was performed following intravenous administration of 100 IV Isovue 300. Individualized dose optimization techniques were used for this CT. COMPARISON: April 18, 2018. FINDINGS: Previously identified 8 mm pleural-based nodule within the posterior medial right upper lobe appears completely stable. There are no additional pulmonary nodules or masses. There is apical fibrotic stranding involving right greater than left lung apex. The thyroid appears mildly prominent. Especially the left thyroid lobe. Consider dedicated thyroid sonography. There are stable, multistation mediastinal lymph nodes. Pathologic by size criteria. There is no pathologic by size hilar adenopathy. There is no pleural effusion. There is no pneumothorax. Normal heart and pericardium. Normal hilar regions. Normal enhanced pulmonary arteries. Normal aorta arch and descending thoracic aorta. There is no acute osseous abnormality. There is no significant degenerative change. There is no suspicious lytic or blastic osseous pathology. Throughout the visualized upper abdomen there are 2, stable large gallstones within the gallbladder lumen. There is no pericholecystic fluid. There is no gallbladder wall thickening. Accordingly, there is no sonographic evidence of acute cholecystitis. CT/Chest WITH Contrast IMPRESSION: Stable examination. No new nodules or masses. Cholelithiasis without evidence of cholecystitis. Electronically Signed: Darvin oLw MD at 14:34 EDT , Service support ,
== END ==
PROVIDERS: Family Provider Family Medicine; PCP Family Medicine; Referring Provider Internal Medicine Medical Oncology; Visit Provider Internal Medicine Medical Oncology
DX: R91.1 Solitary pulmonary nodule (principal); Z85.3 Personal history of malignant neoplasm of breast
CPT/HCPCS: 71260; Q9967

== ENCOUNTER → 2018-10-29 07:44 | Outpatient (CLI) | payer OTHER, SELFPAY ==
[2017-05-14 09:07] VITALS: BMI 30.7
[2018-10-24 14:26] VITALS: BMI 30.5
--- NOTE | 2018-10-29 07:04 | BI_ITS ---
MAMMOGRAPHY - BILATERAL SCREENING REASON FOR EXAM: Female, 53 years old. Routine annual screening examination. PERTINENT HISTORY: Personal history of breast cancer. Prior left lumpectomy with chemotherapy and radiation therapy. Mother with breast cancer. TECHNIQUE: Digital bilateral breast domi (3D mammographic acquisition) in the CC and MLO projections. 2-D mediolateral oblique (MLO) and craniocaudad (CC) views of both breasts were obtained. CAD: Full Field Digital Mammography with Computer Added Detection was performed. COMPARISON: Comparison is made with prior study dated October 25, 2017 and December 20, 2016. FINDINGS: Breast Composition: The breasts are heterogeneously dense, which may obscure small masses. Once again, the patient is status post lumpectomy in the deep upper lateral aspect of the left breast with resultant architectural distortion and postsurgical punctate calcification. There is evidence of overlying skin thickening and retraction along the lateral aspect of the breast. There is also evidence of surgical clips in the left axillary region. No other significant abnormalities are identified. There has been no significant change since the prior study. BI/SCREEN MAMM (CAD) W/DOMI BILAT IMPRESSION: Stable bilateral screening mammogram. Yearly follow-up mammogram recommended. (A) ASSESSMENT CATEGORY: BIRADS Category 2: Benign. A letter regarding these results will be sent to the patient by the facility within 30 days. Approximately 10% of breast cancers are not detected by mammography. A normal mammogram should not delay biopsy of a clinically suspicious abnormality. [id number] Electronically Signed: Joo Wilson, at 10:41 EDT , Service support ,
== END ==
PROVIDERS: Family Provider Family Medicine; PCP Family Medicine; Referring Provider Student in an Organized Health Care Education/Training Program; Visit Provider Student in an Organized Health Care Education/Training Program
DX: Z12.31 Encounter for screening mammogram for malignant neoplasm of breast (principal)
CPT/HCPCS: 77063; 77067

== ENCOUNTER → 2019-01-09 10:18 | Outpatient (CLI) | payer OTHER, SELFPAY ==
[2017-05-14 09:07] VITALS: BMI 30.7
[2018-10-24 14:26] VITALS: BMI 30.5
[2019-01-17 12:18] LABS: HPV Reflexed? YES, CHARGE PATIENT
== END ==
PROVIDERS: PCP Family Medicine; Visit Provider Obstetrics & Gynecology
DX: Z12.4 Encounter for screening for malignant neoplasm of cervix (principal)
CPT/HCPCS: 87624; 88175; G0145

== ENCOUNTER → 2019-10-31 12:06 | Outpatient (CLI) | payer OTHER, SELFPAY ==
[2017-05-14 09:07] VITALS: BMI 30.7
[2018-10-24 14:26] VITALS: BMI 30.5
--- NOTE | 2019-10-31 12:07 | BI_ITS ---
MAMMOGRAPHY - BILATERAL SCREENING REASON FOR EXAM: Female, 54 years old. Routine annual screening examination. PERTINENT HISTORY: Personal history of breast cancer. Prior left lumpectomy with chemotherapy and radiation therapy. Mother with breast cancer. Aunts with breast cancer. TECHNIQUE: Digital bilateral breast domi (3D mammographic acquisition) in the CC and MLO projections. 2-D mediolateral oblique (MLO) and craniocaudad (CC) views of both breasts were obtained. CAD: Full Field Digital Mammography with Computer Added Detection was performed. COMPARISON: Comparison is made with prior study dated October 29, 2018 and October 25, 2017. FINDINGS: Breast Composition: The breasts are heterogeneously dense, which may obscure small masses. There are no dominant masses or suspicious calcifications. Once again, the patient is status post lumpectomy in the deep upper lateral aspect of the left breast with resultant architectural distortion and postoperative calcification. Stable deformity of the lateral aspect of the left breast. Surgical clips are seen in the left axillary region as well. No other significant abnormalities are identified. There has been no significant change since the prior study. BI/SCREEN MAMM (CAD) W/DOMI BILAT IMPRESSION: Stable bilateral screening mammogram. Yearly follow-up mammogram recommended. (A) ASSESSMENT CATEGORY: BIRADS Category 2: Benign. A letter regarding these results will be sent to the patient by the facility within 30 days. Approximately 10% of breast cancers are not detected by mammography. A normal mammogram should not delay biopsy of a clinically suspicious abnormality. [id number] Electronically Signed: Joo Wilson, at 13:13 EDT , Service support ,
--- NOTE | 2019-10-31 12:08 | CT_ITS ---
STUDY: CT CHEST WITH CONTRAST REASON FOR EXAM: Female, 54 years old. LUNG NODULE, LEFT BREAST CANCER FOLLOW UP, LEFT LUMPECTOMY RADIATION DOSAGE (If Supplied By Facility): CTDIvol = ( 10.28 ) mGy, DLP = ( 407.38 ) mGycm TECHNIQUE: Transaxial imaging was performed following intravenous administration of IV 100mL Isovue-300. Multiplanar coronal and sagittal images were reformatted. Individualized dose optimization techniques were used for this CT. COMPARISON: Comparison is made with prior examination dated October 22, 2018. FINDINGS: Surgical clips are seen in the left axillary region Minimal scarring at the lung apices. There is no demonstrated pleural abnormality. Normal heart and pericardium. Normal mediastinum. Normal hilar regions. Normal enhanced pulmonary arteries. Normal aorta arch and descending thoracic aorta. There are multi-level degenerative changes of the thoracic spine. Gallstone. CT/Chest WITH Contrast IMPRESSION: Minimal scarring at the lung apices. No significant nodule is seen at this time. Gallstone. Electronically Signed: Joo Wilson, at 13:33 EDT , Service support ,
[2019-10-31 13:00] LABS: CREATININE FINGERSTICK 0.7 mg/dL (0.55-1.02)
== END ==
PROVIDERS: Family Provider Family Medicine; PCP Family Medicine; Referring Provider Internal Medicine Medical Oncology; Visit Provider Internal Medicine Medical Oncology
DX: Z12.31 Encounter for screening mammogram for malignant neoplasm of breast (principal); Z85.3 Personal history of malignant neoplasm of breast; R91.1 Solitary pulmonary nodule; Z80.3 Family history of malignant neoplasm of breast
CPT/HCPCS: 71260; 77063; 77067; Q9967

== ENCOUNTER → 2020-07-06 | Outpatient (CLI) | payer OTHER, SELFPAY ==
[2017-05-14 09:07] VITALS: BMI 30.7
[2020-07-06 10:13] VITALS: BMI 29.5
== END | disposition home or self-care (01) ==
LOC: LABSPEC 15:37
PROVIDERS: PCP Family Medicine; Referring Provider Obstetrics & Gynecology; Visit Provider Obstetrics & Gynecology
DX: N89.8 Other specified noninflammatory disorders of vagina (principal)
CPT/HCPCS: 87070; 87205

== ENCOUNTER → 2020-07-21 09:29 | Outpatient (CLI) | payer OTHER, SELFPAY ==
[2017-05-14 09:07] VITALS: BMI 30.7
[2020-07-06 10:13] VITALS: BMI 29.5
--- NOTE | 2020-07-21 09:33 | BD_ITS ---
STUDY: DUAL ENERGY X-RAY ABSORPTIOMETRY / DXA REASON FOR EXAM: Female, 55 years old. 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 COMPARISON: None. FINDINGS: Lumbar Spine (L1-L4): g/cm2 (1.382) / T-score (1.7) / Z-score (2.7) Findings are suggestive of normal bone density with a low fracture risk. Left Femur Total: g/cm2 (1.202) / T-score (1.5) / Z-score (2.3) Left Femoral Neck: g/cm2 (1.123) / T-score (0.6) / Z-score (1.7) Right Femur Total: g/cm2 (1.213) / T-score (1.6) / Z-score (2.4) Right Femoral Neck: g/cm2 (1.138) / T-score (0.7) / Z-score (1.8) BD/Dexa Bone Density Study IMPRESSION: The patient is considered normal as outlined below according to World Aubrey Organization (WHO) criteria with a low fracture risk. Reference Information: The T-score is the number of standard deviations above or below the standard which is normal for young adults at their peak bone mineral density. The World Health Organization (WHO) interprets the T-scores as follows: Above -1 Normal bone density Between -1 and -2.5 Osteopenia Equal to / or below -2.5 Osteoporosis As a practical clinical guideline, osteopenia may be graded as follows: Mild -1 through -1.5 Moderate -1.6 through -2.0 Severe -2.1 through -2.4 The Z-score is the number of standard deviations above or below age-matched controls. A Z-score of less than -1.5 would be considered abnormal. References: 1. NIH Osteoporosis and Related Bone Diseases www osteo.org 2. International Society for Clinical Densitometry www iscd.org 3. National Osteoporosis Foundation www nof.org Electronically Signed: Joo Wilson MD at 15:24 EST , Service support ,
== END ==
PROVIDERS: PCP Family Medicine; Referring Provider Obstetrics & Gynecology; Visit Provider Obstetrics & Gynecology
DX: C50.912 Malignant neoplasm of unspecified site of left female breast (principal); Z78.0 Asymptomatic menopausal state
CPT/HCPCS: 77080

== ENCOUNTER → 2020-08-11 16:20 | Outpatient (CLI) | payer OTHER, SELFPAY ==
[2017-05-14 09:07] VITALS: BMI 30.7
[2020-07-06 10:13] VITALS: BMI 29.5
[2020-08-11 16:23] LABS: Bacteria 0 SEEN /hpf (None Seen); Mucous, Urine 0 SEEN /hpf (<or=2+); Red Blood Cells-Urine 0 SEEN /hpf (0-5); White Blood Cells 0 SEEN /hpf (0-5)
[2020-08-11 16:57] LABS: Color, Urine Yellow (Yellow); Glucose, Dipstick Normal (Normal); Ketone-Dipstick 50 mg/dl (Negative); Leukocyte Esterase-Dipstick Negative /ul (Negative); Nitrite-Dipstick Negative (Negative); Occult Blood-Urine Negative /ul (Negative); Protein-Dipstick Negative (Negative); Urine Bilirubin Dipstick Negative (Negative); Urine Clarity Sl. Cloudy (Clear); Urine Urobilinogen Normal (Normal)
[2020-08-11 17:11] LABS: Squamous Epithelial Cells - UA 0-5 SEEN /hpf (5-10)
[2020-08-11 17:49] LABS: Anion Gap 6 (5-15); BUN 13 mg/dL (7-18); BUN/Creat Ratio 20.7 RATIO (10-20); Calcium,Total 9.4 mg/dL (8.5-10.1); Chloride 106 mmol/L (98-107); Creatinine, Serum 0.63 mg/dL (0.55-1.02); EST Glomerular Filtration Rate 104 mL/min (>60); Est Glom Filt Rate - Afr Amer 126 mL/min (>60); Glucose 91 mg/dL (74-106); Potassium 4.1 mmol/L (3.5-5.1); Sodium Level 141 mmol/L (136-145); T4 Free Direct 1.17 ng/dL (0.76-1.46); Thyroid Stim Hormone (TSH) 1.93 uIU/mL (0.358-3.74)
== END ==
PROVIDERS: PCP Family Medicine; Visit Provider Family Medicine
DX: I10 Essential (primary) hypertension (principal)
CPT/HCPCS: 36415; 80048; 81001; 84439; 84443

== ENCOUNTER → 2020-11-02 07:10 | Outpatient (CLI) | payer OTHER, SELFPAY ==
[2017-05-14 09:07] VITALS: BMI 30.7
[2020-07-06 10:13] VITALS: BMI 29.5
--- NOTE | 2020-11-02 07:15 | CT_ITS ---
STUDY: CT CHEST WITHOUT CONTRAST REASON FOR EXAM: Female, 55 years old. Lung nodule follow-up. History of left breast cancer with left lumpectomy. RADIATION DOSAGE (If Supplied By Facility): CTDIvol = ( 11.76 ) mGy, DLP = ( 479.13 ) mGycm TECHNIQUE: Transaxial imaging was performed without the administration of intravenous contrast material. Multiplanar coronal and sagittal images were reformatted. Individualized dose optimization techniques were used for this CT. COMPARISON: Comparison is made with prior examination dated 10/31/2019. FINDINGS: Stable small benign-appearing bilateral axillary lymph nodes. Surgical clips are seen in the left axillary region. Postoperative changes are seen in the lower deep posterior aspect of the left breast. Stable scarring at the lung apices slightly more prominent at the right lung apex. There is no demonstrated pleural abnormality. Normal heart and pericardium. There are multiple small lymph nodes within the mediastinum, which are normal in size and morphology most compatible with reactive lymph hyperplasia. Normal hilar regions. Normal unenhanced pulmonary arteries. Normal aorta arch and descending thoracic aorta. There are multi-level degenerative changes of the thoracic spine. Gallstones. CT/Chest without Contrast IMPRESSION: Stable scarring at the lung apices slightly more prominent on the right side. Electronically Signed: Joo Wilson MD at 9:23 EDT , Service support ,
--- NOTE | 2020-11-02 07:32 | BI_ITS ---
MAMMOGRAPHY - BILATERAL SCREENING REASON FOR EXAM: Female, 55 years old. Routine annual screening examination. PERTINENT HISTORY: Personal history of breast cancer. Prior left lumpectomy with chemotherapy and radiation therapy. Mother with breast cancer. Aunts with breast cancer. TECHNIQUE: Digital bilateral breast domi (3D mammographic acquisition) in the CC and MLO projections. 2-D mediolateral oblique (MLO) and craniocaudad (CC) views of both breasts were obtained. CAD: Full Field Digital Mammography with Computer Added Detection was performed. COMPARISON: Comparison is made with prior study dated 10/31/2019 and 10/29/2018. FINDINGS: Breast Composition: The breasts are heterogeneously dense, which may obscure small masses. There are no dominant masses or suspicious calcifications. Once again, the patient is status post lumpectomy in the deep upper lateral portion of the left breast with resultant architectural distortion and postoperative calcifications. Surgical clips are also seen in the left axillary region. No other significant abnormalities are identified. There has been no significant change since the prior study. BI/SCRN MAMM (CAD)W/DOMI BILAT IMPRESSION: Stable bilateral screening mammogram. Yearly follow-up mammogram recommended. (A) ASSESSMENT CATEGORY: BIRADS Category 2: Benign. A letter regarding these results will be sent to the patient by the facility within 30 days. Approximately 10% of breast cancers are not detected by mammography. A normal mammogram should not delay biopsy of a clinically suspicious abnormality. [id number] Electronically Signed: Joo Wilson MD at 9:01 EDT , Service support ,
== END ==
PROVIDERS: PCP Family Medicine; Referring Provider Internal Medicine Medical Oncology; Visit Provider Internal Medicine Medical Oncology
DX: Z12.31 Encounter for screening mammogram for malignant neoplasm of breast (principal); Z85.3 Personal history of malignant neoplasm of breast; Z80.3 Family history of malignant neoplasm of breast; J98.4 Other disorders of lung
CPT/HCPCS: 71250; 77063; 77067

== ENCOUNTER → 2021-11-03 | Outpatient (CLI) | payer OTHER, SELFPAY ==
[2017-05-14 09:07] VITALS: BMI 30.7
--- NOTE | 2021-11-03 10:03 | BI_ITS ---
MAMMOGRAPHY - BILATERAL SCREENING REASON FOR EXAM: Female, 56 years old. Routine annual screening examination. PERTINENT HISTORY: Personal history of breast cancer. Prior left lumpectomy with chemotherapy and radiation therapy. Mother with breast cancer. Aunts with breast cancer. TECHNIQUE: Digital bilateral breast domi (3D mammographic acquisition) in the CC and MLO projections. 2-D mediolateral oblique (MLO) and craniocaudad (CC) views of both breasts were obtained. CAD: Full Field Digital Mammography with Computer Added Detection was performed. COMPARISON: Comparison is made with prior study dated 11/02/2020 and 10/31/2019. FINDINGS: Breast Composition: The breasts are heterogeneously dense, which may obscure small masses. There are no dominant masses or suspicious calcifications. Once again, the patient is status post lumpectomy in the deep upper lateral aspect of the left breast with resultant postoperative scarring and deformity. Surgical clips are also seen in the left axillary region. No other significant abnormalities are identified. There has been no significant change since the prior study. BI/SCRN MAMM (CAD)W/DOMI BILAT IMPRESSION: Stable bilateral screening mammogram. Yearly follow-up mammogram recommended. (A) ASSESSMENT CATEGORY: BIRADS Category 2: Benign. A letter regarding these results will be sent to the patient by the facility within 30 days. Approximately 10% of breast cancers are not detected by mammography. A normal mammogram should not delay biopsy of a clinically suspicious abnormality. [id number] Electronically Signed: Joo Wilson MD at 12:14 EDT ,
== END | disposition home or self-care (01) ==
LOC: OPBI 10:02
PROVIDERS: PCP Family Medicine; Visit Provider Internal Medicine Medical Oncology
DX: Z12.31 Encounter for screening mammogram for malignant neoplasm of breast (principal); Z85.3 Personal history of malignant neoplasm of breast; Z80.3 Family history of malignant neoplasm of breast
CPT/HCPCS: 77063; 77067

== ENCOUNTER → 2022-11-06 | Outpatient (CLI) | payer OTHER, SELFPAY ==
[2017-05-14 09:07] VITALS: BMI 30.7
--- NOTE | 2022-11-06 08:05 | ECHODONC_ITS ---
Reason For Study: HX CARDIO TOXIC CHEMO Procedure This was a 2D Doppler, Color Flow transthoracic echocardiogram. Myocardial strain analysis was performed in this exam to aid in the assessment of cardiac function. Exam performed in department. Left Ventricle Normal LV size. Left ventricular systolic function is normal. The estimated ejection fraction is 62 %. Stage 1 diastolic dysfunction. No regional wall motion abnormalities noted. Right Ventricle Normal RV size. Normal systolic function. Atria Normal left atrium. Normal right atrium. Mitral Valve Normal mitral valve. Tricuspid Valve Normal tricuspid valve. Aortic Valve Normal aortic valve. Trisinus/trileaflet aortic valve. Pulmonic Valve Normal pulmonic valve. Great Vessels Normal aortic root. The pulmonary artery is normal size. Normal inferior vena cava. Pericardium/Pleural No pericardial effusion. MMode/2D Measurements & Calculations LVIDd: 4.5 cm IVSd: 1.1 cm Ao root diam: 3.3 cm LVIDs: 2.9 cm LVPWd: 0.74 cm FS: 35.8 % LAV(MOD-bp): 57.9 ml LVAd ap4: 28.1 cm2 SV(MOD-sp4): 51.2 ml LAV(MOD-bp) Indexed: 29.9 ml/m2 LVLd ap4: 7.1 cm LAV(MOD-sp2): 57.2 ml EDV(MOD-sp4): 90.9 ml LAV(MOD-sp4): 54.8 ml EDV(sp4-el): 94.2 ml LVAs ap4: 17.0 cm2 LVLs ap4: 6.1 cm ESV(MOD-sp4): 39.7 ml ESV(sp4-el): 40.2 ml EF(MOD-sp4): 56.3 % EF(sp4-el): 57.3 % SV(sp4-el): 53.9 ml LA A4 area: 18.7 cm2 LA dimension(2D): 3.8 cm RA A4 area: 12.7 cm2 TAPSE_phl: 2.4 cm Time Measurements MV dec time: 0.21 sec Doppler Measurements & Calculations MV E max victor manuel: 76.5 cm/sec Lat Peak E' Victor Manuel: 8.6 cm/sec Med Peak E' Victor Manuel: 7.5 cm/sec MV A max victor manuel: 102.6 cm/sec E/E' lat: 8.9 E/E' med: 10.2 MV E/A: 0.75 MV V2 max: 98.9 cm/sec Ao V2 max: 126.5 cm/sec MV max P.9 mmHg MV dec slope: 379.6 cm/sec2 Ao max P.4 mmHg MV V2 mean: 62.7 cm/sec Ao V2 mean: 91.1 cm/sec MV mean P.7 mmHg Ao mean P.7 mmHg MV V2 VTI: 34.3 cm Ao V2 VTI: 29.9 cm AV (velocity ratio): 0.81 LV V1 max: 109.3 cm/sec PA V2 max: 89.8 cm/sec LV V1 max P.8 mmHg PA V2 mean: 68.2 cm/sec LV V1 mean P.6 mmHg LV V1 mean: 74.9 cm/sec LV V1 VTI: 24.2 cm ECHO/ONC Echo Complete Interpretation Summary Normal LV size. Left ventricular systolic function is normal. The estimated ejection fraction is 62 %. Stage 1 diastolic dysfunction. The global longitudinal strain is normal. The global longitudinal strain = -22. 4 % (normal). Ordering Physician: Jerman Tam Referring Physician: Jerman Tam Performed By: Rossy Tran RCS
== END | disposition home or self-care (01) ==
LOC: CVS 08:04
PROVIDERS: PCP Family Medicine; Referring Provider Internal Medicine Medical Oncology; Visit Provider Internal Medicine Medical Oncology
DX: Z51.81 Encounter for therapeutic drug level monitoring (principal); Z79.899 Other long term (current) drug therapy
CPT/HCPCS: 93306; 93356

== ENCOUNTER → 2022-11-06 | Outpatient (CLI) | payer OTHER, SELFPAY ==
[2017-05-14 09:07] VITALS: BMI 30.7
--- NOTE | 2022-11-06 08:54 | BI_ITS ---
MAMMOGRAPHY - BILATERAL SCREENING REASON FOR EXAM: Female, 57 years old. Routine annual screening examination. PERTINENT HISTORY: Personal history of breast cancer. Prior left lumpectomy with chemotherapy and radiation therapy. Mother with breast cancer. Aunts with breast cancer. TECHNIQUE: Digital bilateral breast domi (3D mammographic acquisition) in the CC and MLO projections. 2-D mediolateral oblique (MLO) and craniocaudad (CC) views of both breasts were obtained. CAD: Full Field Digital Mammography with Computer Added Detection was performed. COMPARISON: Comparison is made with prior study November 03, 2021 and November 02, 2020 FINDINGS: Breast Composition: The breasts are heterogeneously dense, which may obscure small masses. There are no dominant masses or suspicious calcifications. The patient is status post lumpectomy in the deep upper lateral aspect of the left breast with resultant postoperative scarring and deformity. Surgical clips are seen at the operative site as well as in the left axillary region. No other significant abnormalities are identified. There has been no significant change since the prior study. BI/SCRN MAMM (CAD)W/DOMI BILAT IMPRESSION: Stable bilateral screening mammogram. Yearly follow-up mammogram recommended. (A) ASSESSMENT CATEGORY: BIRADS Category 2: Benign. A letter regarding these results will be sent to the patient by the facility within 30 days. Approximately 10% of breast cancers are not detected by mammography. A normal mammogram should not delay biopsy of a clinically suspicious abnormality. [id number] Electronically Signed: Joo Wilson MD at 10:13 EDT ,
== END | disposition home or self-care (01) ==
LOC: OPBI 08:52
PROVIDERS: PCP Family Medicine; Referring Provider Internal Medicine Medical Oncology; Visit Provider Internal Medicine Medical Oncology
DX: Z12.31 Encounter for screening mammogram for malignant neoplasm of breast (principal)
CPT/HCPCS: 77063; 77067

== ENCOUNTER → 2023-12-04 | Outpatient (CLI) | payer OTHER, SELFPAY ==
[2017-05-14 09:07] VITALS: BMI 30.7
--- NOTE | 2023-12-04 07:47 | BI_ITS ---
MAMMOGRAPHY - BILATERAL SCREENING REASON FOR EXAM: Female, 58 years old. Routine annual screening examination. PERTINENT HISTORY: Personal history of breast cancer. Prior left lumpectomy with chemotherapy and radiation therapy. Mother with breast cancer. Aunts with breast cancer. TECHNIQUE: Digital bilateral breast domi (3D mammographic acquisition) in the CC and MLO projections. 2-D mediolateral oblique (MLO) and craniocaudad (CC) views of both breasts were obtained. CAD: Full Field Digital Mammography with Computer Added Detection was performed. COMPARISON: Comparison is made with prior study dated November 06, 2022 and November 03, 2021. FINDINGS: Breast Composition: The breasts are heterogeneously dense, which may obscure small masses. There are no dominant masses or suspicious calcifications. Once again, the patient is status post lumpectomy in the deep upper lateral aspect of the left breast with resultant postoperative scarring and breast deformity. Surgical clips are also seen in the left axillary region. No other significant abnormalities are identified. There has been no significant change since the prior study. BI/SCRN MAMM (CAD)W/DOMI BILAT IMPRESSION: Stable bilateral screening mammogram. Yearly follow-up mammogram recommended. (A) ASSESSMENT CATEGORY: BIRADS Category 2: Benign. A letter regarding these results will be sent to the patient by the facility within 30 days. Approximately 10% of breast cancers are not detected by mammography. A normal mammogram should not delay biopsy of a clinically suspicious abnormality. [id number] Electronically Signed: Joo Wilson MD at 8:52 EDT ,
== END | disposition home or self-care (01) ==
LOC: OPBI 07:45
PROVIDERS: PCP Family Medicine; Referring Provider Family Medicine; Visit Provider Family Medicine
DX: Z12.31 Encounter for screening mammogram for malignant neoplasm of breast (principal)
CPT/HCPCS: 77063; 77067

== ENCOUNTER → 2024-06-10 | Outpatient (CLI) | payer OTHER, SELFPAY ==
[2017-05-14 09:07] VITALS: BMI 30.7
--- NOTE | 2024-06-10 19:05 | CT_ITS ---
EXAM: CT HEAD WITHOUT INTRAVENOUS CONTRAST CLINICAL INDICATION: Headaches, vision changes TECHNIQUE: Multiple axial images were obtained of the head without intravenous contrast. This CT exam was performed using one or more of the following dose reduction techniques: automated exposure control, adjustment of the mA and/or kV according to patient size, and/or use of iterative reconstruction technique. RADIATION DOSE: CTDIvol = 44.99 mGy, DLP = 796.11 mGy-cm COMPARISON: No relevant prior studies available. FINDINGS: BRAIN AND EXTRA-AXIAL SPACES: Unremarkable. No intra- or extra-axial hemorrhage. No evidence of acute infarct. No intracranial mass or mass effect. There is preservation of the theodore/white matter interface. Posterior fossa structures are unremarkable. Ventricles are appropriate for age. No hydrocephalus. Basal cisterns are patent. BONES/JOINTS: Unremarkable. No discrete lytic or blastic abnormalities. SINUSES: The floors of the maxillary sinuses are not fully included. MASTOID AIR CELLS: Unremarkable. Clear. ORBITS: Visualized globes, extraocular muscles, optic nerves and retrobulbar fat appear unremarkable. CT/Brain/Head without Contrast IMPRESSION: No acute findings in the head/brain. Electronically Signed: Tegan Marin MD at 1:20 EST ,
== END | disposition home or self-care (01) ==
LOC: CT 19:00
PROVIDERS: PCP Family Medicine; Referring Provider Family Medicine; Visit Provider Family Medicine
DX: G43.909 Migraine, unspecified, not intractable, without status migrainosus (principal); H53.9 Unspecified visual disturbance; R42 Dizziness and giddiness; Z85.3 Personal history of malignant neoplasm of breast
CPT/HCPCS: 70450

== ENCOUNTER → 2024-12-04 | Outpatient (CLI) | payer OTHER, SELFPAY ==
[2017-05-14 09:07] VITALS: BMI 30.7
--- NOTE | 2024-12-04 09:24 | BI_ITS ---
EXAM: SCRN MAMM (CAD)W/DOMI BILAT DATE: 12/04/2024 CLINICAL HISTORY: F, Age 59 y/o , SCREENING BREAST CANCER RISK ASSESSMENT: Na TECHNIQUE: Bilateral screening digital breast tomosynthesis with 2D and 3D images. Computer aided detection. COMPARISON: Prior exam(s) were compared FINDINGS: TISSUE DENSITY: The breast tissue is heterogenously dense, which may obscure small masses. Bilateral Breast Mammographic Findings: No suspicious masses, calcifications or other abnormalities are identified. BI/SCRN MAMM (CAD)W/DOMI BILAT IMPRESSION: OVERALL FINAL ASSESSMENT: BIRADS 1 NEGATIVE RECOMMENDATION: Routine annual follow-up in 1 Year A letter with findings and recommendations will be mailed to the patient. Reading Location: [id number]
== END | disposition home or self-care (01) ==
LOC: OPBI 09:23
PROVIDERS: PCP Family Medicine; Referring Provider Internal Medicine Medical Oncology; Visit Provider Internal Medicine Medical Oncology
DX: Z12.31 Encounter for screening mammogram for malignant neoplasm of breast (principal); Z85.3 Personal history of malignant neoplasm of breast
CPT/HCPCS: 77063; 77067